=== PATIENT | male | born 1960 | race Two or more races ===

== ENCOUNTER 2021-09-07 12:55 | Inpatient (IN) | payer MEDICAID ==
[~2021-09-07] VITALS: Ht 177.8 cm; Wt 76.2 kg
[2021-09-07] VITALS (22 sets, daily range): BP systolic 68–156; BP diastolic 44–80
--- NOTE | 2021-09-07 13:00 | NUR ---
[facility] C/O HYPOXIA 80'S THIS MORNING, 97% AFTER SUCTION. PT ATTACHED TO MONITOR. RESPIRATORY AT BEDSIDE, PT BREATHING IS LABORED AND BREATHING THROUGH HIS STOMACH. PT HAS A BAUMAN AND GTUBE IN PLACE. PT WARM TO TOUCH, AFEBRILE. WILL CONTINUE TO MONITOR.
--- NOTE | 2021-09-07 13:05 | NUR ---
VENT SETTINGS MODE: A/C VC FIO2: 100% TIDAL VOLUME: 550 RATE: 16 PEEP: 5
--- NOTE | 2021-09-07 13:30 | NUR ---
Cristobal mckinney in [facility] - 09/07/21 at 1441 by ROMÁNO VENT SEETING MODE: A/C VC FIO2: 100% TIDAL VOLUME: 550 RATE: 16 PEEP: 5
--- NOTE | 2021-09-07 13:31 | NUR ---
URINE COLLECTED AND SENT
--- NOTE | 2021-09-07 13:34 | NUR ---
UNABLE TO OBTAIN IV ACCESS, DR SCOTT AWARE, MIDLINE ORDER WAS PLACED.
--- NOTE | 2021-09-07 13:45 | NUR ---
COVID TEST COLLECTED AND SENT
[2021-09-07 14:14] LABS: BASOPHILS % (AUTO) 0.1 % (0.0-2.0); HEMATOCRIT 34 % (39-51); HEMOGLOBIN 10.5 g/dL (13.5-17.5); LYMPHOCYTES # (AUTO) 0.7 K/uL (0.8-4.8); LYMPHOCYTES % (AUTO) 2.7 % (20.0-44.0); MEAN CORPUSCULAR HGB CONC 31 g/dl (31.0-36.0); MEAN CORPUSCULAR VOLUME 89 fL (80-96); MONOCYTES # (AUTO) 0.6 K/uL (0.1-1.30); MONOCYTES % (AUTO) 2.4 % (2.0-12.0); NEUTROPHILS # (AUTO) 23.9 K/uL (1.8-8.9); NEUTROPHILS % (AUTO) 94.8 % (43.0-81.0); PLATELET COUNT (AUTO) 334 K/uL (150-450); RED BLOOD CELL COUNT(AUTO) 3.77 MIL/uL (4.5-6.0); WHITE BLOOD COUNT (AUTO) 25.2 K/uL (4.3-11.0)
[2021-09-07] MEDS ORDERED: MAGN400O6 GT (14:24)
[2021-09-07] MEDS ORDERED: NUTR250L58 GT (14:24)
[2021-09-07] MEDS ORDERED: ACET650S26 GT (14:24)
[2021-09-07] MEDS ORDERED: MULT-447 GT (14:24)
[2021-09-07] MEDS ORDERED: SERT25TA GT (14:24)
[2021-09-07] MEDS ORDERED: ASCO-352 GT (14:24)
[2021-09-07] MEDS ORDERED: IPRA4AER IH ×2 (14:24)
[2021-09-07] MEDS ORDERED: COLL30OI TP (14:24)
[2021-09-07] MEDS ORDERED: MIDO10TA GT (14:24)
[2021-09-07] MEDS ORDERED: ZINC1CAP2 GT (14:24)
[2021-09-07] MEDS ORDERED: NA P133E RC (14:24)
[2021-09-07] MEDS ORDERED: BISA10SU11 RC (14:24)
[2021-09-07] MEDS ORDERED: SACC250C GT (14:24)
[2021-09-07] MEDS ORDERED: QUET25TA GT (14:24)
[2021-09-07] MEDS ORDERED: CHLO473M5 MM (14:24)
[2021-09-07] MEDS ORDERED: ACET-2605 GT ×2 (14:24)
[2021-09-07 14:38] LABS: CALCIUM, SERUM 9.7 mg/dL (8.5-10.1); CARBON DIOXIDE 26 mmol/L (21-32); CHLORIDE 101 mmol/L (98-107); GLUCOSE 144 mg/dL (74-106); POTASSIUM 3.8 mmol/L (3.5-5.1); SODIUM SERUM 137 mmol/L (136-145); UREA NITROGEN, BLOOD 35 mg/dL (7-18)
[2021-09-07 14:52] LABS: ALANINE AMINOTRANSFERASE 18 U/L (12-78); ALBUMIN 2.8 g/dL (3.4-5.0); ALKALINE PHOSPHATASE 113 U/L (46-116); ASPARTATE AMINOTRANSFERASE 14 U/L (15-37); BILIRUBIN,DIRECT 0.2 mg/dL (0.0-0.2); TOTAL PROTEIN, SERUM 7.8 g/dL (6.4-8.2)
[2021-09-07] MEDS ORDERED: IV D5/ 0.9% NACL 1,000 ML IV PRN (15:00)
[2021-09-07] MEDS ORDERED: PIPERACILLIN /TAZOBACTAM 3.375 G in IV D5W 50 ML IV ONE (15:00)
[2021-09-07 15:07] LABS: BILIRUBIN,URINE NEGATIVE (NEGATIVE); COLOR,URINE YELLOW (YELLOW); LEUKOCYTE ESTERASE ,URINE LARGE (NEGATIVE); NITRITE, URINE POSITIVE (NEGATIVE); PROTEIN,URINE >=300 mg/dl (NEGATIVE); UGLUCOSE NEGATIVE (NEGATIVE); UROBILINOGEN,URINE 0.2 EU/dL (0.2)
[2021-09-07 15:09] LABS: PH,URINE >8.5 (5.0-8.0)
--- NOTE | 2021-09-07 15:10 | NUR ---
CONSENT FROM [facility] FOR PICC LINE GIVEN OVER THE PHONE
[2021-09-07 15:12] LABS: ABG BASE EXCESS -0.1 mmol/L; ABG PH 7.384 (7.350-7.450); ABG PO2 277.4 mmHg (75.0-100.0); COHb 0.3 % (0.5-1.5); MetHb 0.4 % (0.0-1.5); O2Hb 98.7 % (94.0-97.0); SITE, ABG Left Radial; VENT MODE, BG AC 16 550 +5 100%
--- NOTE | 2021-09-07 15:17 | NUR ---
UPDATED VENT SETTINGS MODE: A/C VC FIO2: 60% TIDAL VOLUME: 550 RATE: 16 PEEP: 5
[2021-09-07 15:21] LABS: MUCUS,URINE Moderate /LPF (None Seen)
[2021-09-07 15:22] LABS: BACTERIA,URINE 3+ /HPF (None Seen); RBC,URINE 21-50 /HPF (0-2); SQUAMOUS EPITHELIAL CELL,UR 0-2 /HPF (None Seen); WBC,URINE 51-80 /HPF (0-3)
[2021-09-07] MEDS ORDERED: LORAZEPAM INJ 2 MG/ML VIAL IVP PRN (15:30)
--- NOTE | 2021-09-07 15:31 | NUR ---
DR TOVAR AT BEDSIDE FOR PICC LINE INSERTION
[2021-09-07] MEDS ORDERED: Z GUARD REMEDY 4 OZ OINT TP PRN (16:00)
[2021-09-07] MEDS ORDERED: MAGNESIUM HYDROXIDE 30 ML UDC PO PRN (16:00)
[2021-09-07] MEDS ORDERED: ACETAMINOPHEN 325 MG TABLET PO PRN (16:00)
[2021-09-07] MEDS ORDERED: ONDANSETRON HCL/PF 4 MG/2 ML VIAL IVP PRN (16:00)
[2021-09-07] MEDS ORDERED: MAG HYDROX/AL HYDROX/SIMETH 30 ML UDC PO PRN (16:00)
[2021-09-07] MEDS ORDERED: CEFEPIME 2 GM in IV D5W 100 ML IV SCH (16:00)
[2021-09-07] MEDS ORDERED: NOREPINEPHRINE 8 MG in IV NS 0.9% 242 ML IV PRN (16:00)
[2021-09-07] MEDS ORDERED: ZOLPIDEM TARTRATE 5 MG TABLET PO PRN (16:00)
[2021-09-07] MEDS ORDERED: IV NS 0.9% 1,000 ML IV PRN (16:00)
[2021-09-07] MEDS ORDERED: ENOXAPARIN SODIUM 40 MG/0.4 ML DISP.SYRIN SQ ONE (16:00)
[2021-09-07] MEDS ORDERED: NOREPINEPHRINE 8 MG in IV NS 0.9% 250 ML IV ONE (16:30)
--- NOTE | 2021-09-07 16:44 | NUR ---
UNABLE TO GIVE VANCOMYOCIN AND ZOSYN, NO IV ACCESS
[2021-09-07] MEDS: VANCOMYCIN 1 GM in IV D5W 250 ML IV ONE ×2 (17:10→17:50)
--- NOTE | 2021-09-07 17:10 | NUR ---
CENTRAL LINE INSTERED BY DR TOVAR (LEFT INGUINAL).
--- NOTE | 2021-09-07 17:52 | NUR ---
attempted to give report, nurse em transport patient to . asked to call back in 10 minutes
[2021-09-07] MEDS ORDERED: IV NS 0.9% 1,000 ML BAG IV ONE (18:00)
[2021-09-07] MEDS ORDERED: ENOXAPARIN SODIUM 40 MG/0.4 ML DISP.SYRIN SQ SCH (18:00)
--- NOTE | 2021-09-07 18:11 | NUR ---
REPORT GIVEN TO VLADIMIR FOR [facility]
--- NOTE | 2021-09-07 18:28 | NUR ---
PT TRANSFERRED TO ICU WITH ACLS PROTOCOLS IN PLACE ACCOMPANIED BY EMT, RN, AND RT. PT WAS TRANSPORTED AND RECIEVED IN STABLE CONDITION.
--- NOTE | 2021-09-07 18:35 | NUR ---
ICU/RN PT ADMITTED FROM ER TRACH ON THE VENT AC MODE,FIO2-60%,SAT O2-94%.ON LEVOPHED DRIP.SUCTION PROVIDED.PT HAS GREEN SECRETION.G-TUBE CLAMPED.LEFT FEMORAL TLC .F/C DRAINING WITH DARK PAOLA CLOUDY URINE, PT HAS UTI.NEW F/C INSERTED.PT HAS LOOSE STOOL.MULTIPLY WOUNDS NOTED ALL OVER THE BODY, REDNESS ON THE VU AREA NOTED. LEFT CHEST AND LEFT NECK SIDE RUSHES NOTED.SEE PHOTOS.WOUND NURSE NOTIFIED.CONTINUE MONITORING.PT RR-40-50 BPM/HR [address] FRANKS NOTIFIED.OK TO START DIPRIVAN.
--- NOTE | 2021-09-07 19:30 | NUR ---
ICU/TERMINAL GAUGER SUPERVISOR RECIEVED REPORT FROM DAY SHIFT NURSE. PT JUST CAME UP FROM THE ER @1830. WOUND PHOTO DOCUMENTATION WAS DONE. FINISHED THE ADMISSION. FULL CODE ORDER.
[2021-09-07] MEDS: PROPOFOL 100 ML IV PRN (19:45)
[2021-09-07] MEDS: IPRATROPIUM NEB FS 0.5 MG/2.5 ML AMPUL.NEB NEB SCH ×2 (19:48→23:40)
--- NOTE | 2021-09-07 19:50 | NUR ---
ICU/SPORTS CLERK WOUND NURSE CONSULT WAS ORDERED. ALONG WITH [facility] BED.
--- NOTE | 2021-09-07 20:15 | NUR ---
ICU/AIRCRAFT ENGINE MECHANIC SUPERVISOR FAMILY CAME IN TO SEE PT. AT BEDSIDE VERIFIED HOME PHONE NUMBER.
[2021-09-07] MEDS: IV D5/ 0.9% NACL 1,000 ML IV PRN (22:11)
--- NOTE | 2021-09-07 22:30 | NUR ---
ICU/ORAL HEALTH THERAPIST FAMILY HAVE GONE HOME FOR THE EVENING, WILL CALL IF ANY UPDATES ON THIS PT.
--- NOTE | 2021-09-07 23:00 | NUR ---
ICU/KERRICK KLEANER OPERATOR LAB HERE TO DRAW TROPONIN AND LACTIC ACID, WELL A MAG.
[2021-09-07] MEDS: NOREPINEPHRINE 8 MG in IV NS 0.9% 242 ML IV PRN (23:17)
--- NOTE | 2021-09-07 23:20 | NUR ---
ICU/INVESTIGATIVE ANALYST PT APPEARS TO BE IN PAIN. TYLENOL 650MG WAS GIVEN THROUGH THE G/TUBE. FLACC SCALE OF 3/10 WAS SCORED. ALSO AT THIS TIME PT GETS SPECIAL FEEDING THAT WE DON'T HAVE, WILL PASS ON TO DAY SHIFT TO GET THIS VERIFIED WHAT FEEDING PT SHOULD HAVE
[2021-09-07] MEDS: PIPERACILLIN /TAZOBACTAM 3.375 G in IV D5W 50 ML IV SCH (23:34)
--- NOTE | 2021-09-07 23:50 | NUR ---
ICU/ANALYTICAL DATA MINER PT HAS BEEN BREATHING IN THE 40'S TO 50'S, SEDATION OF DIPRIVAN IS PLACED ON PT EARLIER. DIPRIVAN HAS BEEN TITRATED UP FOR INCREASED HEART RATE AND INCREASED RESPIRATORY RATE . WILL CONTINUE TO MONITOR THIS PT.
[2021-09-08] VITALS (97 sets, daily range): BP systolic 79–136; BP diastolic 49–86
--- NOTE | 2021-09-08 00:05 | NUR ---
ICU/DATASTAGE DEVELOPER PT HAS POSITIVE TROP. CALLED IN A CRITICAL LAB VALUE, OF 106 FROM 8 EARLIER. CALLED THE EXTENSION COURSE COORDINATOR MD ABOUT THIS. WHO GAVE A ORDER FOR LOVENOX SQ 75MG. MADE MD AWARE THAT PT HAD GOTTEN LOVENOX SQ 40MG AT @2000, EAASHLIER IN THE SHIFT.
[2021-09-08] MEDS: ENOXAPARIN SODIUM 80 MG/0.8 ML DISP.SYRIN SQ SCH ×2 (00:19→08:38)
--- NOTE | 2021-09-08 03:00 | NUR ---
ICU/MEDICAL SERVICES MANAGER RESPIRATORY SPUTUM CULTURE WAS COLLECTED AND SENT TO LAB.
[2021-09-08] MEDS: IPRATROPIUM NEB FS 0.5 MG/2.5 ML AMPUL.NEB NEB SCH ×6 (03:16→23:39)
[2021-09-08] MEDS: PROPOFOL 100 ML IV PRN ×4 (03:38→21:34)
[2021-09-08 04:13] LABS: BASOPHILS % (AUTO) 0.1 % (0.0-2.0); HEMATOCRIT 25 % (39-51); LYMPHOCYTES # (AUTO) 1.5 K/uL (0.8-4.8); MEAN CORPUSCULAR HGB CONC 32 g/dl (31.0-36.0); MEAN CORPUSCULAR VOLUME 88 fL (80-96); MONOCYTES % (AUTO) 3.3 % (2.0-12.0); NEUTROPHILS # (AUTO) 26.7 K/uL (1.8-8.9); NEUTROPHILS % (AUTO) 91.6 % (43.0-81.0); PLATELET COUNT (AUTO) 312 K/uL (150-450); RED BLOOD CELL COUNT(AUTO) 2.84 MIL/uL (4.5-6.0); WHITE BLOOD COUNT (AUTO) 29.1 K/uL (4.3-11.0)
--- NOTE | 2021-09-08 04:20 | NUR ---
ICU/RUNNING RIGGER AM LABS WERE DRAWN ALONG WITH CHEST XRAY. AWAIT FOR ANY ABNORMAL RESULTS.
[2021-09-08 04:40] LABS: ALBUMIN 2.4 g/dL (3.4-5.0); BILIRUBIN,TOTAL 1.1 mg/dL (0.2-1.0); CALCIUM, SERUM 8.8 mg/dL (8.5-10.1); CREATININE 0.7 mg/dL (0.6-1.3); MAGNESIUM 2.6 mg/dL (1.8-2.4); PHOSPHORUS 3.2 mg/dL (2.5-4.9); TOTAL PROTEIN, SERUM 6.7 g/dL (6.4-8.2)
[2021-09-08 05:01] LABS: POTASSIUM 2.5 mmol/L (3.5-5.1)
[2021-09-08] MEDS: PIPERACILLIN /TAZOBACTAM 3.375 G in IV D5W 50 ML IV SCH ×4 (05:24→23:38)
--- NOTE | 2021-09-08 05:35 | NUR ---
ICU/CRUISE COUNSELOR PT HAS HISTORY OF C-DIFF, PT HAS LOOSE WATERY STOOL. STOOL WAS COLLECTED AND SENT TO LAB. FLEXISEAL WAS PLACED IN PT TO KEEP WOUND CLEAN AND DRY.
[2021-09-08] MEDS ORDERED: VANCOMYCIN 1 GM in IV D5W 250 ML IV SCH (06:00)
--- NOTE | 2021-09-08 06:14 | NUR ---
ICU/ELECTRICAL CONTROLS DESIGNER POTASSIUM 2.5, CALLED MD CANDLE WICKER FOR ORDERS WHICH WERE RECIEVED AT [facility] 40MEQ BID X2DAYS. ORDERS CARRIED OUT.
--- NOTE | 2021-09-08 07:05 | NUR ---
RN NOTES RECEIVED PT ON BED , TRACH/ VENT DEPENDENT , PT IS SEDATED, ON DIPRIVAN AT 30MCG/KG/MIN, ON TELE V PACING , HR IN 70'S , GT CLAMPED AT THIS TIME, BAUMAN DRAINING TO GRAVITY, L FEMORAL PICC LINE SITE , CLEAN ,DRY AND INTACT, PT ON LEVO AT .1 MCG/KG/MIN FOR BP SUPPORT, IVF AT 100 CC/HR RUNNING , SR UP x3, CALL LIGHT WITHIN EASY REACH, BED LOCKED AND IN LOWEST POSITION, CONTINUE TO MONITOR.
--- NOTE | 2021-09-08 07:21 | NUR ---
WOUND CARE CONSULT: PT PRESENTS WITH MULTIPLE WOUNDS AND SKIN ISSUES INCLUDING STAGE 4 ULCERS TO BILATERAL BUTTOCKS AND SACRUM, RASH/SKIN CONDITION TO POSTERIOR/LEFT SIDE OF NECK, DRY WOUNDS TO HEELS AND NECROTIC WOUND TO RT WRIST, ALL PRESENT ON ADMISSION. RECOMMENDATIONS MADE FOR SKIN PROTECTION. DISCUSSED WITH NURSING STAFF. FIRST STEP LOW AIRLOSS MATTRESS IS ON ORDER. DR FRIEDMAN AND DR HURT TO BE NOTIFIED THIS AM OF SURGICAL AND DPM CONSULTS. MD IN AGREEMENT WITH PLAN OF CARE.
[2021-09-08] MEDS: ASCORBIC ACID 500 MG TABLET GT SCH (08:37)
[2021-09-08] MEDS: POTASSIUM CHLORIDE 20 MEQ POWDER PACKET GT SCH ×2 (08:37→16:39)
[2021-09-08] MEDS: IV D5/ 0.9% NACL 1,000 ML IV PRN ×2 (08:58→23:13)
[2021-09-08] MEDS: THERAHONEY GEL 1.5 OZ TUBE TP SCH (09:49)
[2021-09-08] MEDS: DAKINS QUARTER STRENGTH (0.125%) 480 ML BOTTLE TOP SCH (09:49)
--- NOTE | 2021-09-08 12:30 | NUR ---
RN NOTES ORAL AND TRACH SUCTIONING DONE , LARGE AMOUNT OF THICK WHITISH SECRETION NOTED . CONTINUE TO MONITOR.
[2021-09-08] MEDS: NOREPINEPHRINE 8 MG in IV NS 0.9% 242 ML IV PRN (13:40)
--- NOTE | 2021-09-08 16:00 | NUR ---
RN NOTES SUPPORTIVE FAMILY AT THE BEDSIDE, PT ON LEVO FOR BP SUPPORT, CONTINUE TO MONITOR.
[2021-09-08] MEDS: VANCOMYCIN 1.25 GM in IV D5W 250 ML IV SCH (17:34)
--- NOTE | 2021-09-08 18:23 | NUR ---
RN NOTES NO SIGNFICANT CHANGES NOTED ON THIS SHIFT, TRACH SUCTIONING DONE NEEDED, PT HAS LARGE AMOUNT OF THICK WHITISH SECRETION , ON LEVO AT .08 MCG/KG/MIN AT THIS TIME FOR BP SUPPORT , ON DIPRIVAN AT 35 MCG/KG/MIN FOR SEDATION , IVF AT 100 CC/HR RUNNING , BAUMAN AND TOM SEAL DRAINING TO GRAVITY, SR UP x3, CALL LIGHT WITHIN EASY REACH, BED LOCKED AND IN LOWEST POSITION, WILL ENDORSE TO HYDROGEN POWER PLANT ENGINEER NURSE FOR CONTINUITY OF CARE .
--- NOTE | 2021-09-08 19:45 | NUR ---
ICU/MACHINE SLAT BASKET MAKER RECIVED REPORT FROM DAY NURSE. SEE FLOWSHEET FOR ASSESSMENT. THERE ARE MANY SKIN ISSUES WHICH ARE ADDRESSED ON THE FLOWSHEET, ALONG WITH THE INTERVENTIONS TO EACH. PT HAS IV DRIPS WHICH ARE ADDRESSED ON THE IV SPREAD SHEET ALONG WITH THE TITRATIONS TO THEM. PT WAS THEN TURNED AND REPOSITIONED FOR COMFORT AND CARE. NO ACUTE DISTRESS SEEN AT THIS TIME. WILL CONTINUE TO MONITOR THIS PT.
--- NOTE | 2021-09-08 19:57 | NUR ---
ICU/PURIFYING PLANT OPERATOR DR STOCK CAME IN TO SEE PT FOR THE POSITIVE TROP. FROM YESTERDAY, WHEN LAB VALUES WENT FROM 8 TO 106. ALSO ASKED ABOUT THE LLOVENOX INCREASED TO 75SQ FROM 40. SAID TO DECREASE BACK DOWN TO 40. ORDERS RECIEVED AND CARRIED OUT.
--- NOTE | 2021-09-08 20:14 | NUR ---
ICU/LASER OPERATOR PT'S BREATHING APPEARS TO BE BETTER, CHARGE NURSE DECREASED THE SEDATION DOWN. WILL MONITOR THIS PT AND HIS BREATHING.
--- NOTE | 2021-09-08 22:30 | NUR ---
ICU/KNITTING MACHINE TENDER PT WAS TURNED AND REPOSITIONED FOR COMFORT AND CARE.PT WAS ALSO PROVIDED ORAL CARE AT THIS TIME. PT REMAINS ON CURRENT VENT SETTINGS, WITH SATURATION AT 100%. WILL CONTINUE TO MONITOR THIS PT AND HIS SATURATION.
[2021-09-09] VITALS (89 sets, daily range): BP systolic 82–140; BP diastolic 46–87
--- NOTE | 2021-09-09 00:50 | NUR ---
ICU/BOARDING HOUSE COOK PT WAS TURNED AND REPOSITIONED FOR COMFORT AND CARE, AFTER PM CARE. PT WAS ALSO PROVIDED ORAL CARE AT THIS TIME. PT REMAINS ON CURRENT VENT SETTINGS, WITH SATURATION AT 100%. WILL CONTINUE TO MONITOR THIS PT AND HIS SATURATION.
--- NOTE | 2021-09-09 01:30 | NUR ---
ICU/CORPORATE OPERATIONS COMPLIANCE MANAGER PT'S BREATHING INCREASED, APPEARED LABORED, SEDATION WAS INCREASED TO REFLECT THIS. WILL CONTINUE TO MONITOR THIS PT AND HIS BREATHING
[2021-09-09] MEDS: PROPOFOL 100 ML IV PRN ×2 (02:42→09:01)
--- NOTE | 2021-09-09 03:00 | NUR ---
ICU/SPOOL SALVAGER PT WAS TURNED AND REPOSITIONED FOR COMFORT AND CARE.PT WAS ALSO PROVIDED ORAL CARE AT THIS TIME, AFTER AM CARE WAS GIVEN. PT REMAINS ON CURRENT VENT SETTINGS, WITH SATURATION AT 100%. WILL CONTINUE TO MONITOR THIS PT AND HIS SATURATION.
[2021-09-09] MEDS: IPRATROPIUM NEB FS 0.5 MG/2.5 ML AMPUL.NEB NEB SCH ×6 (03:10→23:23)
--- NOTE | 2021-09-09 04:30 | NUR ---
ICU/FARMWORKER DAIRY AM LABS WERE DRAWN ALONG WITH CHEST XRAY. AWAIT FOR ANY ABNORMAL RESULTS
[2021-09-09] MEDS: PIPERACILLIN /TAZOBACTAM 3.375 G in IV D5W 50 ML IV SCH ×3 (05:36→18:21)
[2021-09-09] MEDS: VANCOMYCIN 1.25 GM in IV D5W 250 ML IV SCH (06:00)
--- NOTE | 2021-09-09 06:42 | NUR ---
ICU/FERMENTATION OPERATOR CALLED LAB ABOUT VANCO LEVEL, SAID THE EQUIPMENT TO GIVE RESULTS WERE DOWN.
--- NOTE | 2021-09-09 06:46 | NUR ---
ICU/COOKER SODA VANCO LEVEL JUST RESULTED, WAS 23. ORDER IS TO HOLD FOR THIS.
[2021-09-09] MEDS: NOREPINEPHRINE 8 MG in IV NS 0.9% 242 ML IV PRN (06:59)
--- NOTE | 2021-09-09 07:15 | NUR ---
RN NOTES RECEIVED PT IN BED. ON TRACH, PORTEX #7. TOLERATING VENT SETTINGS WELL. SEDATED ON DIPRIVAN @35MCG/KG/MIN. TELE MONITOR READING V PACING. GT CLAMPED AT THIS TIME. BAUMAN CATH IN PLACE DRAINING YELLOW COLORED URINE. L FEMORAL TLC INTACT AMD PATENT. ON LEVO @0.1 MCG/KG/MIN. D5NS @100 ML/HR. INFUSING WELL. SAFETY MEASURES IMPLEMENTED. BED LOCKED AND IN LOWEST POSITION WITH SIDE RAILS UP X3. WILL CONTINUE TO MONITOR.
[2021-09-09 08:16] LABS: CALCIUM, SERUM 8.9 mg/dL (8.5-10.1); CREATININE 0.4 mg/dL (0.6-1.3)
[2021-09-09] MEDS: ASCORBIC ACID 500 MG TABLET GT SCH ×2 (09:00→09:01)
[2021-09-09] MEDS: POTASSIUM CHLORIDE 20 MEQ POWDER PACKET GT SCH ×3 (09:00→18:30)
[2021-09-09] MEDS ORDERED: ENOXAPARIN SODIUM 80 MG/0.8 ML DISP.SYRIN SQ SCH (09:00)
--- NOTE | 2021-09-09 09:00 | NUR ---
RN NOTES GTUBE WILL BE RE ASSESSED BY . GT MEDS NOT ADMINISTERED.
[2021-09-09] MEDS: DAKINS QUARTER STRENGTH (0.125%) 480 ML BOTTLE TOP SCH (09:09)
[2021-09-09] MEDS: THERAHONEY GEL 1.5 OZ TUBE TP SCH (09:10)
[2021-09-09] MEDS: ENOXAPARIN SODIUM 40 MG/0.4 ML DISP.SYRIN SQ SCH (09:53)
[2021-09-09 10:11] LABS: BASOPHILS # (AUTO) 0.1 K/uL (0.0-0.2); BASOPHILS % (AUTO) 0.3 % (0.0-2.0); EOSINOPHILS % (AUTO) 0.5 % (0.0-6.0); HEMATOCRIT 24 % (39-51); HEMOGLOBIN 7.6 g/dL (13.5-17.5); LYMPHOCYTES # (AUTO) 0.9 K/uL (0.8-4.8); LYMPHOCYTES % (AUTO) 5.8 % (20.0-44.0); MEAN CORPUSCULAR HGB CONC 31 g/dl (31.0-36.0); MEAN CORPUSCULAR VOLUME 90 fL (80-96); MONOCYTES # (AUTO) 0.6 K/uL (0.1-1.30); MONOCYTES % (AUTO) 3.8 % (2.0-12.0); NEUTROPHILS # (AUTO) 14.2 K/uL (1.8-8.9); NEUTROPHILS % (AUTO) 89.6 % (43.0-81.0); PLATELET COUNT (AUTO) 221 K/uL (150-450); RED BLOOD CELL COUNT(AUTO) 2.71 MIL/uL (4.5-6.0); WHITE BLOOD COUNT (AUTO) 15.8 K/uL (4.3-11.0)
[2021-09-09] MEDS: IV D5/ 0.9% NACL 1,000 ML IV PRN ×2 (10:51→21:08)
[2021-09-09] MEDS: VANCOMYCIN HCL 0.75 GM in IV D5W 250 ML IV SCH (12:50)
--- NOTE | 2021-09-09 19:21 | NUR ---
RN NOTES NO SIGNIFICANT CHANGES THROUGHOUT THE SHIFT. NO SOB OR ANY S/S OF DISTRESS. ALL DUE MEDS GIVEN. NEEDS ATTENDED. KEPT CLEAN AND COMFORTABLE. SAFETY MEASURES IN PLACE. ENDORSED TO NIGHT RN FOR E[facility].
--- NOTE | 2021-09-09 20:15 | NUR ---
ICU/HUNTING AND FISHING GUIDE STABLE BLOOD PRESSURE, MADE CHARGE NURSE AWARE OF THIS, 115/74 WITH HEART RATE 76. LEVO WAS THEN DECREASED DOWN TO 0.04 FROM 0.06. WILL CONTINUE TO MONITOR THIS PT AND HIS BLOOD PRESSURE.
--- NOTE | 2021-09-09 22:15 | NUR ---
ICU/EMERGENCY ROOM CLERK STABLE BLOOD PRESSURE, MADE CHARGE NURSE AWARE OF THIS, 117/69 WITH HEART RATE 73. LEVO WAS THEN DECREASED DOWN TO 0.02 FROM 0.06. WILL CONTINUE TO MONITOR THIS PT AND HIS BLOOD PRESSURE.
--- NOTE | 2021-09-09 23:30 | NUR ---
ICU/VENDING MACHINE SERVICER PT'S SATURATION HAS BEEN STABLE THROUGH EALIER PART OF THE SHIFT, RT THEN DECREASED THE FIO2 DOWN TO 80% FROM 100% WHICH WAS DONE EARLIER IN THE PREVIOUS SHIFT. WILL CONTINUE TO MONITOR THIS PT AND HIS SATURATION.
[2021-09-10] VITALS (97 sets, daily range): BP systolic 73–128; BP diastolic 16–79
[2021-09-10] MEDS: PIPERACILLIN /TAZOBACTAM 3.375 G in IV D5W 50 ML IV SCH ×5 (00:03→23:17)
[2021-09-10] MEDS: VANCOMYCIN HCL 0.75 GM in IV D5W 250 ML IV SCH ×2 (00:28→13:34)
[2021-09-10] MEDS: IPRATROPIUM NEB FS 0.5 MG/2.5 ML AMPUL.NEB NEB SCH ×5 (03:11→23:10)
--- NOTE | 2021-09-10 03:30 | NUR ---
ICU/CARTON GLUING MACHINE OPERATOR UNSTABLE BLOOD PRESSURE, MADE CHARGE NURSE AWARE OF THIS, 79/45 WITH HEART RATE 90. LEVO WAS THEN INCREASED UP TO 0.04 FROM 0.02. WILL CONTINUE TO MONITOR THIS PT AND HIS BLOOD PRESSURE.
--- NOTE | 2021-09-10 04:53 | NUR ---
ICU/LOGISTICS CLERK PT'S SATURATION HAS BEEN STABLE THROUGH THE SHIFT, RT THEN DECREASED THE FIO2 DOWN TO 70% FROM 80%. WILL CONTINUE TO MONITOR THIS PT AND HIS SATURATION.
[2021-09-10 05:20] LABS: CALCIUM, SERUM 8.2 mg/dL (8.5-10.1); CREATININE 0.4 mg/dL (0.6-1.3)
[2021-09-10] MEDS: IV D5/ 0.9% NACL 1,000 ML IV PRN ×2 (05:41→17:43)
[2021-09-10] MEDS: NOREPINEPHRINE 8 MG in IV NS 0.9% 242 ML IV PRN (05:42)
[2021-09-10 05:52] LABS: POTASSIUM 2.8 mmol/L (3.5-5.1)
--- NOTE | 2021-09-10 07:45 | NUR ---
ICU/RN PT IS CHRONIC TRACH ON THE VENT AC MODE,FIO2-70%.SAT O2-100%.OFF SEDATION.AWAKE ,ALERT.ON LEVOPHED DRIP. LEFT FEMORAL TLC.F/C DRAINING WITH YELLOW URINE.RECTAL TUBE DRAINING WITH LIQUID STOOL. MULTIPLY WOUND NOTED ALL OVER THE BODY.G-TUBE CLAMPED.LABS REVIEW.K-2.8. NOTIFIED.SUCTION PROVIDED.PT HAS A LOT OF GREEN SECRETION.PT IS QUADRIPLEGIC.REPOSITION FOR COMFORT.[facility] ORDERED.
[2021-09-10] MEDS: ASCORBIC ACID 500 MG TABLET GT SCH (08:19)
[2021-09-10] MEDS: DAKINS QUARTER STRENGTH (0.125%) 480 ML BOTTLE TOP SCH (08:20)
[2021-09-10] MEDS: ENOXAPARIN SODIUM 40 MG/0.4 ML DISP.SYRIN SQ SCH (08:20)
[2021-09-10] MEDS: THERAHONEY GEL 1.5 OZ TUBE TP SCH (08:21)
--- NOTE | 2021-09-10 09:10 | NUR ---
ICU/RN DUE MEDS ARE GIVEN ORDERED.DR FRANKS SEEN THE PT .50 Addendum: 09/10/21 at 0942 by VLADIMIR JORGE RN K-2.8. 50 MEQ KCL IV ORDERED .
[2021-09-10] MEDS: POTASSIUM CL. PREMIX PERIPHER. 50 ML IV SCH ×4 (09:27→13:30)
[2021-09-10] MEDS: VITAL AF 1.2 1,000 ML BOTTLE GT PRN (11:28)
[2021-09-10] MEDS: PROSOURCE / PROSTAT (PYXIS) 30 ML UDC GT SCH (17:43)
--- NOTE | 2021-09-10 17:45 | NUR ---
ICU/RN PM CARE PROVIDED.WOUND DRESSING DONE ORDERED.PT PLACED ON [facility] MATRASS . G-TUBE FEEDING INFUSING AT 40 ML/HR NO RESIDUAL NOTED .PT IS ON LEVOPHED DRIP.AFEBRILE. SUCTION PROVIDED.REPOSITION FOR COMFORT.
[2021-09-11] VITALS (101 sets, daily range): BP systolic 74–164; BP diastolic 40–87
[2021-09-11] MEDS: VANCOMYCIN HCL 0.75 GM in IV D5W 250 ML IV SCH ×3 (00:11→23:27)
[2021-09-11] MEDS: IPRATROPIUM NEB FS 0.5 MG/2.5 ML AMPUL.NEB NEB SCH ×6 (03:15→23:31)
--- NOTE | 2021-09-11 04:00 | NUR ---
ICU/RN: DURING AM LINEN CHANGE FLEX-SEAL NOTED TO BE DEFLATED AND LAYING ON THE LINENS. AM CARE RENDERED. LINENS CHANGED, WOUNDS REDRESSED AND NEW FLEXI-SEAL PLACED BY PHOTOGRAPHIC PROCESS SCREEN MAKERMARIPOSA CERVANTES. PT TOLERATED PROCEDURE WELL. WILL CONTINUE TO MONITOR.
[2021-09-11] MEDS: IV D5/ 0.9% NACL 1,000 ML IV PRN ×2 (04:34→17:33)
[2021-09-11 05:19] LABS: CALCIUM, SERUM 8.3 mg/dL (8.5-10.1); CREATININE 0.3 mg/dL (0.6-1.3)
[2021-09-11] MEDS: PIPERACILLIN /TAZOBACTAM 3.375 G in IV D5W 50 ML IV SCH ×2 (05:26→11:00)
[2021-09-11] MEDS: NOREPINEPHRINE 8 MG in IV NS 0.9% 242 ML IV PRN ×2 (05:27→20:04)
[2021-09-11 05:33] LABS: POTASSIUM 2.7 mmol/L (3.5-5.1)
--- NOTE | 2021-09-11 05:36 | NUR ---
ICU/RN: PAGED SHAWN MARQUEZ DNP TO REPORT CRITICAL POTASSIUM 2.7 AWAITING CALL BACK.
--- NOTE | 2021-09-11 07:40 | NUR ---
ICU/RN PT IS CHRONIC TRACH ON THE VENT AC MODE,FIO2-45%.SAT O2-100%.OFF SEDATION.AWAKE ,ALERT.ON LEVOPHED DRIP. LEFT FEMORAL TLC.F/C DRAINING WITH YELLOW URINE.RECTAL TUBE DRAINING WITH LIQUID STOOL. MULTIPLY WOUND NOTED ALL OVER THE BODY.G-TUBE FEEDING .LABS REVIEW.K-2.7. NOTIFIED.SUCTION PROVIDED.PT HAS A LOT OF GREEN SECRETION.PT IS QUADRIPLEGIC.REPOSITION FOR COMFORT. ON [facility] .
[2021-09-11] MEDS: ASCORBIC ACID 500 MG TABLET GT SCH (08:22)
[2021-09-11] MEDS: ENOXAPARIN SODIUM 40 MG/0.4 ML DISP.SYRIN SQ SCH (08:22)
[2021-09-11] MEDS: PROSOURCE / PROSTAT (PYXIS) 30 ML UDC GT SCH ×2 (08:22→17:34)
[2021-09-11] MEDS: DAKINS QUARTER STRENGTH (0.125%) 480 ML BOTTLE TOP SCH (08:23)
[2021-09-11] MEDS: THERAHONEY GEL 1.5 OZ TUBE TP SCH (08:23)
[2021-09-11] MEDS: POTASSIUM CL. PREMIX PERIPHER. 50 ML IV SCH ×6 (08:54→14:07)
--- NOTE | 2021-09-11 09:00 | NUR ---
ICU/RN K-2.7. 60 MEQ KCL IV ORDERED. DUE MEDS ARE GIVEN ORDERED.
[2021-09-11] MEDS: VITAL AF 1.2 1,000 ML BOTTLE GT PRN (11:09)
[2021-09-11 11:49] LABS: THYROID STIMULATING HORMONE 1.285 uIU/mL (0.358-3.74)
[2021-09-11] MEDS: MEROPENEM 1 G in IV NS 0.9% 100 ML IV SCH ×2 (13:39→21:00)
[2021-09-11 16:07] LABS: BASOPHILS % (AUTO) 0.4 % (0.0-2.0); HEMATOCRIT 24 % (39-51); HEMOGLOBIN 7.6 g/dL (13.5-17.5); LYMPHOCYTES % (AUTO) 12.4 % (20.0-44.0); MEAN CORPUSCULAR HGB CONC 32 g/dl (31.0-36.0); MEAN CORPUSCULAR VOLUME 88 fL (80-96); MONOCYTES # (AUTO) 0.5 K/uL (0.1-1.30); MONOCYTES % (AUTO) 6.3 % (2.0-12.0); NEUTROPHILS # (AUTO) 6.2 K/uL (1.8-8.9); NEUTROPHILS % (AUTO) 76.9 % (43.0-81.0); PLATELET COUNT (AUTO) 202 K/uL (150-450)
[2021-09-11 16:31] LABS: CALCIUM, SERUM 8.3 mg/dL (8.5-10.1); CREATININE 0.5 mg/dL (0.6-1.3); POTASSIUM 3.1 mmol/L (3.5-5.1)
--- NOTE | 2021-09-11 17:30 | NUR ---
ICU/RN PM CARE PROVIDED.WOUND DRESSING DONE ORDERED.PT IS STILL ON LEVOPHED DRIP. 60 MEQ POTASSIUM IV GIVEN ORDERED.NEW POTASSIUM LEVEL 3.1.MD NOTIFIED.NEW ORDERS RECEIVED.
[2021-09-11 18:07] LABS: BAND % (MANUAL) 1 % (0.0-5.0); EOSINOPHILS % (MANUAL) 5 % (0-4); LYMPHOCYTES % (MANUAL) 10 % (16-48); MONOCYTES % (MANUAL) 7 % (0-11.0); NEUTROPHILS % (MANUAL) 77 (42-76)
[2021-09-11] MEDS ORDERED: POTASSIUM CHLORIDE 20 MEQ POWDER PACKET GT SCH ×2 (18:30→21:00)
[2021-09-11] MEDS ORDERED: POTASSIUM CHLORIDE 20 MEQ POWDER PACKET GT ONE (18:30)
--- NOTE | 2021-09-11 20:00 | NUR ---
ICU NOTES Received patient awake non verbal in no acute distress.With trach to vent on same settings well tolerated.SR with Levophed low dose for BP support.GT feeding in progress. No residual noted.Maintained HOB elevated to prevent aspiration.FC to gravity.Flexi seal to gravity with liquid stool.Turned and repositioned.Continue monitoring.
[2021-09-12] VITALS (96 sets, daily range): BP systolic 60–146; BP diastolic 34–105
[2021-09-12] MEDS: IPRATROPIUM NEB FS 0.5 MG/2.5 ML AMPUL.NEB NEB SCH ×6 (03:16→23:31)
[2021-09-12] MEDS: IV D5/ 0.9% NACL 1,000 ML IV PRN ×2 (04:05→14:09)
[2021-09-12] MEDS: MEROPENEM 1 G in IV NS 0.9% 100 ML IV SCH ×3 (04:35→21:03)
--- NOTE | 2021-09-12 06:34 | NUR ---
ICU NOTES Patient resting in no acute distress.VS remains stable.Tolerating vent settings.V-paced. Continue Levophed gtt at low dose.Tolerating gt feeding.Moderate urine output.Wound care done.Bed bath rendered.Oral care done.Turned and repositioned Q 2hrs.No significant changes noted during the shift.Kept comfortable.
[2021-09-12 07:18] LABS: CREATININE 0.3 mg/dL (0.6-1.3); POTASSIUM 4.1 mmol/L (3.5-5.1)
--- NOTE | 2021-09-12 07:30 | NUR ---
OPENING NOTE: REPORT RECEIVED FROM BILLY MONGE. PER REPORT CHRONIC TRACH/VENT PATIENT. LEVOPHED INFUSING PER MD ORDERS. BAUMAN CATHETER AND RECTAL TUBE IN PLACE DRAINING WITHOUT DIFFICULTY. PT CHECKED ON HOURLY AND PRN BY NURSING STAFF.
[2021-09-12] MEDS: VITAL AF 1.2 1,000 ML BOTTLE GT PRN ×2 (08:22→13:13)
[2021-09-12] MEDS: POTASSIUM CHLORIDE 20 MEQ POWDER PACKET GT SCH (09:52)
[2021-09-12] MEDS: ACETAMINOPHEN 650 MG/20.3 ML UDC GT PRN (09:53)
[2021-09-12] MEDS: PROSOURCE / PROSTAT (PYXIS) 30 ML UDC GT SCH ×2 (09:54→17:53)
[2021-09-12] MEDS: ENOXAPARIN SODIUM 40 MG/0.4 ML DISP.SYRIN SQ SCH (09:54)
[2021-09-12] MEDS: ASCORBIC ACID 500 MG TABLET GT SCH (09:57)
[2021-09-12] MEDS: THERAHONEY GEL 1.5 OZ TUBE TP SCH (10:09)
[2021-09-12] MEDS: DAKINS QUARTER STRENGTH (0.125%) 480 ML BOTTLE TOP SCH (10:11)
[2021-09-12 10:18] LABS: CALCIUM, SERUM 9.1 mg/dL (8.5-10.1)
[2021-09-12] MEDS: VANCOMYCIN HCL 0.75 GM in IV D5W 250 ML IV SCH (12:32)
[2021-09-12] MEDS: MIDODRINE HCL (5MG) 5 MG TABLET GT SCH ×2 (12:33→19:40)
[2021-09-12] MEDS: IV NS 0.9% 250 ML IV PRN (14:18)
[2021-09-12] MEDS: SERTRALINE HCL 25 MG TABLET GT SCH (17:54)
[2021-09-12] MEDS: QUETIAPINE FUMARATE 25 MG TABLET GT SCH (17:54)
--- NOTE | 2021-09-12 18:39 | NUR ---
END OF SHIFT NOTE: PT HAD AN UNEVENTFUL SHIFT. LEVOPHED GTT TITRATED DOWN TO 0.01 MCG/KG/MIN. DRESSING CHANGES DONE PER MD ORDERS. PT ALERT, RESPONSIVE APPROPRIATE.. FAMIILY VISITED TODAY WITHOUT DIFFICULTY. PT CHECKED ON HOURLY AND PRN BY NURSING STAFF.
--- NOTE | 2021-09-12 19:20 | NUR ---
RN NOTES RECEIVED REPORT FROM MORNING RN. PATIENT ON TRACH PORTEX #7 CONNECTED TO MV AC 16 TV 550 FIO2 35 SATING 94%. WITH IV ACCESS AT L FEMORAL TRIPLE LUMEN PATENT FLUSHING WELL RUNNING D5 NS@100 ML/HR, LEVOPHED ON 0.2 MCG/KG/MIN. WITH GT PATENT CONNECTED TO CONTINUOS TUBE FEEDING @ 60CC/HR TOLERATING WELL. WITH BAUMAN CATHETER CONNECTED TO URINE BAG DRAINING WELL WITH YELLOWISH URINE. WITH FLEXI SEAL IN PLACE. HOB ELEVATED. SAFETY MEASURES IN PLACE AT ALL TIMES. ALL LIGHT WITHIN REACH. WILL CLOSELY MONITOR THE PATIENT
--- NOTE | 2021-09-12 19:30 | NUR ---
RN NOTES PATIENT NOTED SATURATION 86% SUCTIONED PATIENT. RT CAME IN INCREASED FIO2 50%.
[2021-09-13] VITALS (95 sets, daily range): BP systolic 74–147; BP diastolic 46–91
[2021-09-13] MEDS: VANCOMYCIN HCL 0.75 GM in IV D5W 250 ML IV SCH (00:07)
[2021-09-13] MEDS: IV D5/ 0.9% NACL 1,000 ML IV PRN ×3 (01:05→20:44)
[2021-09-13] MEDS: IPRATROPIUM NEB FS 0.5 MG/2.5 ML AMPUL.NEB NEB SCH ×6 (03:50→23:23)
[2021-09-13] MEDS: MIDODRINE HCL (5MG) 5 MG TABLET GT SCH ×3 (04:25→20:41)
[2021-09-13 04:29] LABS: BASOPHILS % (AUTO) 0.4 % (0.0-2.0); EOSINOPHILS % (AUTO) 4.1 % (0.0-6.0); HEMATOCRIT 21 % (39-51); LYMPHOCYTES # (AUTO) 1.6 K/uL (0.8-4.8); LYMPHOCYTES % (AUTO) 23.8 % (20.0-44.0); MEAN CORPUSCULAR HGB CONC 33 g/dl (31.0-36.0); MEAN CORPUSCULAR VOLUME 87 fL (80-96); MONOCYTES # (AUTO) 0.6 K/uL (0.1-1.30); MONOCYTES % (AUTO) 8.8 % (2.0-12.0); NEUTROPHILS # (AUTO) 4.1 K/uL (1.8-8.9); NEUTROPHILS % (AUTO) 62.9 % (43.0-81.0); PLATELET COUNT (AUTO) 200 K/uL (150-450); RED BLOOD CELL COUNT(AUTO) 2.43 MIL/uL (4.5-6.0); WHITE BLOOD COUNT (AUTO) 6.6 K/uL (4.3-11.0)
[2021-09-13 04:50] LABS: HEMOGLOBIN 6.9 g/dL (13.5-17.5)
[2021-09-13] MEDS: MEROPENEM 1 G in IV NS 0.9% 100 ML IV SCH ×3 (04:50→20:40)
--- NOTE | 2021-09-13 06:57 | NUR ---
RN NOTES PATIENT ASLEEP. ON TRACH CONNECTED TO MV WITH PRESCRIBED SETTING. GT INTACT ON CONTINUOS FEEDING. BAUMAN PATENT DRAINING WELL. STILL ON LEVOPHED TITRATED TO MAINTAIN BLOOD PRESSURE WNL. ALL DUE MEDS GIVEN ORDERED. SUCTIONED SECRETION Q2 AND PRN. KEPT CLEAN AND DRY AT ALL TIMES. ALL SAFETY MEASURES IN PLACE . HOB ELEVATED. CALL LIGHT WITHIN REACH. WILL ENDORSED TO MORNING SHIFT FOR E[facility]ON
[2021-09-13 07:28] LABS: CALCIUM, SERUM 8.5 mg/dL (8.5-10.1); CREATININE 0.4 mg/dL (0.6-1.3); MAGNESIUM 1.7 mg/dL (1.8-2.4); PHOSPHORUS 2.7 mg/dL (2.5-4.9); POTASSIUM 3.6 mmol/L (3.5-5.1)
--- NOTE | 2021-09-13 07:35 | NUR ---
START OF SHIFT NOTES: REPORT RECEIVED FROM LINDSEY; PATIENT ASLEEP COMFORTABLY, NO SSx OF DISTRESS NOTED AT THIS TIME; GT FEEDING RUNNING ORDERED; IVF AND LEVOPHED DRIP INFUSING PER MD ORDERS; F/C AND RECTAL TUBE DRAINING WELL AND INTACT. CALL LIGHT WITHIN REACH, WILL CONTINUE TO MONITOR PATIENT.
[2021-09-13 08:30] LABS: CALCIUM, SERUM 8.4 mg/dL (8.5-10.1); CREATININE 0.4 mg/dL (0.6-1.3); POTASSIUM 3.4 mmol/L (3.5-5.1)
[2021-09-13 08:40] LABS: BASOPHILS % (AUTO) 0.4 % (0.0-2.0); EOSINOPHILS % (AUTO) 6.9 % (0.0-6.0); HEMATOCRIT 22 % (39-51); HEMOGLOBIN 7.1 g/dL (13.5-17.5); LYMPHOCYTES # (AUTO) 1.7 K/uL (0.8-4.8); LYMPHOCYTES % (AUTO) 25.2 % (20.0-44.0); MEAN CORPUSCULAR HGB CONC 33 g/dl (31.0-36.0); MEAN CORPUSCULAR VOLUME 87 fL (80-96); MONOCYTES # (AUTO) 0.7 K/uL (0.1-1.30); MONOCYTES % (AUTO) 10.3 % (2.0-12.0); NEUTROPHILS # (AUTO) 3.9 K/uL (1.8-8.9); NEUTROPHILS % (AUTO) 57.2 % (43.0-81.0); PLATELET COUNT (AUTO) 207 K/uL (150-450); RED BLOOD CELL COUNT(AUTO) 2.49 MIL/uL (4.5-6.0); WHITE BLOOD COUNT (AUTO) 6.7 K/uL (4.3-11.0)
--- NOTE | 2021-09-13 09:15 | NUR ---
MD POLO VISITED PATIENT AND WITH NEW ORDERS NOTED; MADE AWARE OF THE HGB LEVEL OF 6.9 AND 7.1 RESULTED TODAY., NEW ORDER FOR BLOOD TRANSFUSION.
[2021-09-13] MEDS: PROSOURCE / PROSTAT (PYXIS) 30 ML UDC GT SCH ×2 (09:31→17:54)
[2021-09-13] MEDS: POTASSIUM CHLORIDE 20 MEQ POWDER PACKET GT SCH (09:31)
[2021-09-13] MEDS: SERTRALINE HCL 25 MG TABLET GT SCH (09:31)
[2021-09-13] MEDS: ASCORBIC ACID 500 MG TABLET GT SCH (09:31)
[2021-09-13] MEDS: QUETIAPINE FUMARATE 25 MG TABLET GT SCH ×2 (09:31→17:54)
[2021-09-13] MEDS: THERAHONEY GEL 1.5 OZ TUBE TP SCH (09:36)
[2021-09-13] MEDS: DAKINS QUARTER STRENGTH (0.125%) 480 ML BOTTLE TOP SCH (09:36)
[2021-09-13] MEDS: ENOXAPARIN SODIUM 40 MG/0.4 ML DISP.SYRIN SQ SCH (09:41)
[2021-09-13] MEDS: VITAL AF 1.2 1,000 ML BOTTLE GT PRN (10:51)
[2021-09-13] MEDS: IV NS 0.9% 250 ML IV PRN (10:53)
[2021-09-13] MEDS ORDERED: POTASSIUM CHLORIDE 20 MEQ POWDER PACKET NG SCH (11:00)
[2021-09-13] MEDS ORDERED: MAGNESIUM OXIDE 400 MG TABLET PO ONE (11:30)
[2021-09-13] MEDS: VANCOMYCIN 1 GM in IV D5W 250 ML IV SCH (11:37)
[2021-09-13] MEDS ORDERED: HYDROCORTISONE 20 MG TABLET GT SCH (17:00)
[2021-09-13] MEDS: FLUDROCORTISONE 0.1 MG TABLET GT SCH (17:55)
[2021-09-13] MEDS: HYDROCORTISONE 5 MG TABLET GT SCH (17:56)
[2021-09-13] MEDS: NOREPINEPHRINE 8 MG in IV NS 0.9% 242 ML IV PRN (18:07)
--- NOTE | 2021-09-13 19:06 | NUR ---
END OF SHIFT NOTES: REPORT GIVEN TO INCOMING RN, PT. RESTING ON BED IN COMFORTABLE POSITION, NO SIGNIFICANT CHANGES NOTED AT THIS TIME; ALL DUE MEDS GIVEN PER MD ORDERS; HOURLY AND PRN ROUNDING DONE BY STAFF; CALL LIGHT WITHIN REACH. ENDORSED FOR CONTINUITY OF CARE.
--- NOTE | 2021-09-13 20:08 | NUR ---
PIPELINE CONTROLLER. INITIAL ASSESSMENT. RECEIVED THE PT REST IN BED. TRACH TO VENT CONNECTED. REMAINING SAME VENT SETTINGS TOLERATED WELL. SAT 98%, NO ACUTE DISTRESS NOTED. MANAGER E LEARNING SHOWING NSR, ,SOME TIMES V PACING.GT INTACT. VITALS 60 ML/H, IV RT FEM TLC. IVF D5NS 100ML/H,JOSÉ LUIS 0.06 HOB ELEVATED. WILL CONTINUE TO MONITOR VITALS.
[2021-09-14] VITALS (96 sets, daily range): BP systolic 55–160; BP diastolic 28–103
[2021-09-14] MEDS: VANCOMYCIN 1 GM in IV D5W 250 ML IV SCH ×2 (02:09→12:12)
[2021-09-14] MEDS: IPRATROPIUM NEB FS 0.5 MG/2.5 ML AMPUL.NEB NEB SCH ×6 (03:45→23:23)
[2021-09-14 04:59] LABS: BASOPHILS % (AUTO) 0.4 % (0.0-2.0); EOSINOPHILS % (AUTO) 6.3 % (0.0-6.0); HEMATOCRIT 25 % (39-51); HEMOGLOBIN 8.1 g/dL (13.5-17.5); MEAN CORPUSCULAR HGB CONC 33 g/dl (31.0-36.0); MEAN CORPUSCULAR VOLUME 85 fL (80-96); MONOCYTES # (AUTO) 0.8 K/uL (0.1-1.30); MONOCYTES % (AUTO) 9.6 % (2.0-12.0); NEUTROPHILS # (AUTO) 4.7 K/uL (1.8-8.9); NEUTROPHILS % (AUTO) 58.7 % (43.0-81.0); PLATELET COUNT (AUTO) 259 K/uL (150-450); RED BLOOD CELL COUNT(AUTO) 2.89 MIL/uL (4.5-6.0)
[2021-09-14] MEDS: MIDODRINE HCL (5MG) 5 MG TABLET GT SCH ×3 (05:20→20:25)
[2021-09-14] MEDS: MEROPENEM 1 G in IV NS 0.9% 100 ML IV SCH ×3 (05:21→21:09)
[2021-09-14 05:46] LABS: CALCIUM, SERUM 8.8 mg/dL (8.5-10.1); CREATININE 0.4 mg/dL (0.6-1.3); MAGNESIUM 1.9 mg/dL (1.8-2.4); PHOSPHORUS 2.1 mg/dL (2.5-4.9); POTASSIUM 3.7 mmol/L (3.5-5.1)
--- NOTE | 2021-09-14 07:08 | NUR ---
precision agriculture specialist. am care given. remaining same vent settings tolerated well. sat 99%.o acute distress noted, residential monitor showing nsr. iv lt fem tlc. ivf d5ns 100ml/h, levophed 0.03mcg/kg/min.remaining same gt feed tolerated well. fc patent. will continue to monitor vitals
--- NOTE | 2021-09-14 07:30 | NUR ---
TYPEWRITER MECHANIC OPENING NOTES PT IN BED, OPENS EYES TO NAME AND TOUCH, WITH TRACH PORTEX #7 TO MV AC 16 TV 550 FIO2 40 SATING 98%. NO DISTRESS, RESPIRATION UNLABORED, SR,V PACING HR 89 ON MONITOR, WITH IV ACCESS AT L FEMORAL TRIPLE LUMEN PATENT, WITH RUNNING D5 NS@100 ML/HR, LEVOPHED ON 0.2 MCG/KG/MIN. SITE CLEAR. WITH GT PATENT CONNECTED TO CONTINUOUS TUBE FEEDING VITAL AF 1.2 @ 60CC/HR TOLERATING WELL. PLACEMENT CHECKED. 0 RESIDUAL. WITH BAUMAN CATHETER CONNECTED TO URINE BAG DRAINING TO GRAVITY WITH YELLOWISH URINE. WITH FLEXI SEAL IN PLACE. SEE NURSING FLOWSHEET FOR SKIN ISSUES.HOB ELEVATED. HOB ELEVATED. BED IS LOCKED, IN LOWEST POSITION AND SIDE RAILS UP. CALL LIGHT WITHIN REACH OF THE PATIENT. WILL PERFORM PRESCRIBED WOUND TREATMENT IN A FEW. WILL TURN AND REPOSITION Q 2 HOURS. WILL CONTINUE TO MONITOR AND REASSESS FOR ANY CHANGES AND WILL CARRY OUT ANY ONGOING AND ACTIVE MD ORDER.
[2021-09-14] MEDS: PROSOURCE / PROSTAT (PYXIS) 30 ML UDC GT SCH ×2 (08:54→18:17)
[2021-09-14] MEDS: HYDROCORTISONE 5 MG TABLET GT SCH ×2 (08:54→18:17)
[2021-09-14] MEDS: QUETIAPINE FUMARATE 25 MG TABLET GT SCH ×2 (08:55→18:17)
[2021-09-14] MEDS: SERTRALINE HCL 25 MG TABLET GT SCH (08:55)
[2021-09-14] MEDS: POTASSIUM CHLORIDE 20 MEQ POWDER PACKET GT SCH (08:55)
[2021-09-14] MEDS: FLUDROCORTISONE 0.1 MG TABLET GT SCH (08:55)
[2021-09-14] MEDS: ASCORBIC ACID 500 MG TABLET GT SCH (08:55)
[2021-09-14] MEDS: DAKINS QUARTER STRENGTH (0.125%) 480 ML BOTTLE TOP SCH (08:57)
[2021-09-14] MEDS: THERAHONEY GEL 1.5 OZ TUBE TP SCH (08:57)
[2021-09-14] MEDS: ENOXAPARIN SODIUM 40 MG/0.4 ML DISP.SYRIN SQ SCH (08:59)
[2021-09-14] MEDS: IV D5/ 0.9% NACL 1,000 ML IV PRN ×2 (09:08→20:25)
--- NOTE | 2021-09-14 09:30 | NUR ---
RN NOTES DUE MEDS GIVEN
--- NOTE | 2021-09-14 09:30 | NUR ---
RN NOTES ALL NEEDS MET AT THIS TIME. STABLE VS. PM CARE AND WOUND CARE DONE EARLIER. TURNED AND REPOSITIONED EARLIER. ENDORSED TO NEXT SHIFT FOR E[facility]ON.
[2021-09-14] MEDS: VITAL AF 1.2 1,000 ML BOTTLE GT PRN (13:54)
[2021-09-14] MEDS ORDERED: LIDOCAINE 1%-EPI 1:100,000 20 ML VIAL TP ONE (14:00)
[2021-09-14] MEDS ORDERED: SILVER NITRATE APPLICATOR 1 EA BOX TP SCH (14:00)
[2021-09-14] MEDS ORDERED: NEUTRA PHOS 1 POWD.PACKET GT ONE (15:00)
--- NOTE | 2021-09-14 19:35 | NUR ---
ICU/FORGING PRESS LEVER TENDER RECEIVED REPORT FROM DAY NURSE. SEE FLOWSHEET FOR ASSESSMENT. THERE ARE MANY SKIN ISSUES WHICH ARE ADDRESSED ON THE FLOWSHEET, ALONG WITH THE INTERVENTIONS TO EACH. PT HAS IV DRIPS WHICH ARE ADDRESSED ON THE IV SPREAD SHEET ALONG WITH THE TITRATIONS TO THEM. PT WAS THEN TURNED AND REPOSITIONED FOR COMFORT AND CARE. NO ACUTE DISTRESS SEEN AT THIS TIME. WILL CONTINUE TO MONITOR THIS PT. NO ACUTE DISTRESS SEEN AT THIS TIME
--- NOTE | 2021-09-14 21:30 | NUR ---
ICU/ADMISSION SPECIALIST STABLE BLOOD PRESSURE, MADE CHARGE NURSE AWARE OF THIS, 1214/63 WITH HEART RATE 84. LEVO WAS THEN DECREASED DOWN TO 0.02 FROM 0.03. WILL CONTINUE TO MONITOR THIS PT AND HIS BLOOD PRESSURE.
--- NOTE | 2021-09-14 22:30 | NUR ---
ICU/HEAD SETTER STABLE BLOOD PRESSURE, MADE CHARGE NURSE AWARE OF THIS, 132/65 WITH HEART RATE 74. LEVO WAS THEN DECREASED DOWN TO 0.01 FROM 0.02. WILL CONTINUE TO MONITOR THIS PT AND HIS BLOOD PRESSURE.
--- NOTE | 2021-09-14 23:30 | NUR ---
ICU/CABIN EQUIPMENT SUPERVISOR STABLE BLOOD PRESSURE, MADE CHARGE NURSE AWARE OF THIS, 130'S-120'S WITH HEART RATE 70'S. LEVO WAS THEN PUT ON HOLD. WILL CONTINUE TO MONITOR THIS PT AND HIS BLOOD PRESSURE.
[2021-09-15] VITALS (42 sets, daily range): BP systolic 78–135; BP diastolic 47–85
[2021-09-15] MEDS: VANCOMYCIN 1 GM in IV D5W 250 ML IV SCH ×2
--- NOTE | 2021-09-15 00:35 | NUR ---
ICU/STAFF ANALYST VANCO TROUGH IS 23. PER HOSPITAL PROTOCOL VANCO IS TO BE HELD. WILL CALL PHARMACY IN MORNING TO MAKE THEM AWARE OF THE HIGH LEVEL.
[2021-09-15] MEDS: IPRATROPIUM NEB FS 0.5 MG/2.5 ML AMPUL.NEB NEB SCH ×6 (03:27→23:28)
[2021-09-15] MEDS ORDERED: MIDODRINE HCL (5MG) 5 MG TABLET ONE (04:31)
[2021-09-15] MEDS: MIDODRINE HCL (5MG) 5 MG TABLET GT SCH ×3 (04:41→20:12)
[2021-09-15] MEDS: MEROPENEM 1 G in IV NS 0.9% 100 ML IV SCH ×3 (04:45→20:58)
[2021-09-15] MEDS: IV D5/ 0.9% NACL 1,000 ML IV PRN ×2 (05:12→13:53)
[2021-09-15] MEDS: IV NS 0.9% 250 ML IV PRN ×2 (05:12→13:56)
[2021-09-15 05:28] LABS: BASOPHILS % (AUTO) 0.3 % (0.0-2.0); EOSINOPHILS % (AUTO) 4.8 % (0.0-6.0); HEMATOCRIT 23 % (39-51); HEMOGLOBIN 7.6 g/dL (13.5-17.5); LYMPHOCYTES # (AUTO) 1.5 K/uL (0.8-4.8); LYMPHOCYTES % (AUTO) 29.8 % (20.0-44.0); MEAN CORPUSCULAR HGB CONC 33 g/dl (31.0-36.0); MEAN CORPUSCULAR VOLUME 86 fL (80-96); MONOCYTES # (AUTO) 0.5 K/uL (0.1-1.30); MONOCYTES % (AUTO) 9.6 % (2.0-12.0); NEUTROPHILS # (AUTO) 2.8 K/uL (1.8-8.9); NEUTROPHILS % (AUTO) 55.5 % (43.0-81.0); PLATELET COUNT (AUTO) 252 K/uL (150-450); RED BLOOD CELL COUNT(AUTO) 2.69 MIL/uL (4.5-6.0); WHITE BLOOD COUNT (AUTO) 5.1 K/uL (4.3-11.0)
--- NOTE | 2021-09-15 07:25 | NUR ---
START OF SHIFT NOTES: RECEIVED PATIENT ON BED COMFORTABLY; OPEN EYES WITH NAME AND TOUCH; NO SSx OF ANY DISTRESS NOTED; IVF INFUSING AND GT FEEDING RUNNING PER MD ORDERS; FLEXISEAL INTACT; F/C DRAINING WELL BY GRAVITY, INTACT AND PATENT; AFEBRILE; WITH TRIPLE LUMEN IV-LINE ON LEFT FEMORAL,INTACT AND PATENT. CALL LIGHT WITHIN PT. REACH; BED IN LOWEST POSITION AND WHEELS LOCKED; WILL CONTINUE TO MONITOR PATIENT.
--- NOTE | 2021-09-15 07:26 | NUR ---
PER BISHOP's ENDORSEMENT; PATIENT IS NO LONGER ON LEVOPHED SINCE AROUND MIDNIGHT ON HER SHIFT DUE TO STABLE BP. WILL CONTINUE TO MONITOR.
[2021-09-15 08:33] LABS: CALCIUM, SERUM 8.4 mg/dL (8.5-10.1); CREATININE 0.3 mg/dL (0.6-1.3); MAGNESIUM 1.7 mg/dL (1.8-2.4); PHOSPHORUS 2.7 mg/dL (2.5-4.9); POTASSIUM 3.2 mmol/L (3.5-5.1)
[2021-09-15] MEDS: ENOXAPARIN SODIUM 40 MG/0.4 ML DISP.SYRIN SQ SCH (09:00)
--- NOTE | 2021-09-15 09:05 | NUR ---
DR. FRANKS VISITED PATIENT WITH NEW ORDER NOTED.
[2021-09-15] MEDS: FLUDROCORTISONE 0.1 MG TABLET GT SCH (09:22)
[2021-09-15] MEDS: SERTRALINE HCL 25 MG TABLET GT SCH (09:23)
[2021-09-15] MEDS: POTASSIUM CHLORIDE 20 MEQ POWDER PACKET GT SCH (09:23)
[2021-09-15] MEDS: ASCORBIC ACID 500 MG TABLET GT SCH (09:23)
[2021-09-15] MEDS: QUETIAPINE FUMARATE 25 MG TABLET GT SCH ×2 (09:23→18:22)
[2021-09-15] MEDS: PROSOURCE / PROSTAT (PYXIS) 30 ML UDC GT SCH ×2 (09:24→18:22)
[2021-09-15] MEDS: DAKINS QUARTER STRENGTH (0.125%) 480 ML BOTTLE TOP SCH (09:26)
[2021-09-15] MEDS: THERAHONEY GEL 1.5 OZ TUBE TP SCH (09:26)
[2021-09-15] MEDS: HYDROCORTISONE 5 MG TABLET GT SCH ×2 (09:32→18:22)
--- NOTE | 2021-09-15 12:04 | NUR ---
SPOKE WITH PHARMACIST AND HE SAID OKAY TO GIVE VANCO IV TODAY SCHEDULED
[2021-09-15] MEDS: VANCOMYCIN 0.75 GM in IV D5W 250 ML IV SCH ×2 (12:44→23:50)
[2021-09-15] MEDS: VITAL AF 1.2 1,000 ML BOTTLE GT PRN (13:53)
[2021-09-15] MEDS ORDERED: POTASSIUM CHLORIDE 20 MEQ POWDER PACKET GT ONE (18:30)
[2021-09-15] MEDS ORDERED: Magnesium 1GM/D5W 100ML PREMIX 100 ML IV SCH (18:30)
[2021-09-16] VITALS (78 sets, daily range): BP systolic 66–142; BP diastolic 41–87
[2021-09-16] MEDS: IPRATROPIUM NEB FS 0.5 MG/2.5 ML AMPUL.NEB NEB SCH ×6 (04:19→23:24)
[2021-09-16] MEDS: MIDODRINE HCL (5MG) 5 MG TABLET GT SCH ×3 (04:29→20:15)
[2021-09-16] MEDS: MEROPENEM 1 G in IV NS 0.9% 100 ML IV SCH ×3 (04:30→20:40)
[2021-09-16 04:40] LABS: CALCIUM, SERUM 8.7 mg/dL (8.5-10.1); CREATININE 0.4 mg/dL (0.6-1.3); MAGNESIUM 2.3 mg/dL (1.8-2.4); PHOSPHORUS 2.5 mg/dL (2.5-4.9); POTASSIUM 3.8 mmol/L (3.5-5.1)
[2021-09-16 04:49] LABS: BASOPHILS % (AUTO) 0.2 % (0.0-2.0); EOSINOPHILS % (AUTO) 6.7 % (0.0-6.0); HEMATOCRIT 24 % (39-51); HEMOGLOBIN 7.8 g/dL (13.5-17.5); LYMPHOCYTES # (AUTO) 1.6 K/uL (0.8-4.8); LYMPHOCYTES % (AUTO) 28.6 % (20.0-44.0); MEAN CORPUSCULAR HGB CONC 32 g/dl (31.0-36.0); MEAN CORPUSCULAR VOLUME 87 fL (80-96); MONOCYTES # (AUTO) 0.5 K/uL (0.1-1.30); MONOCYTES % (AUTO) 9.7 % (2.0-12.0); NEUTROPHILS % (AUTO) 54.8 % (43.0-81.0); PLATELET COUNT (AUTO) 236 K/uL (150-450); RED BLOOD CELL COUNT(AUTO) 2.75 MIL/uL (4.5-6.0); WHITE BLOOD COUNT (AUTO) 5.6 K/uL (4.3-11.0)
[2021-09-16] MEDS: NOREPINEPHRINE 8 MG in IV NS 0.9% 242 ML IV PRN (05:43)
[2021-09-16] MEDS: IV D5/ 0.9% NACL 1,000 ML IV PRN ×2 (05:58→15:15)
--- NOTE | 2021-09-16 06:15 | NUR ---
ICU/ZIPPER SETTER LOCKSTITCH LOW BP 80'S-60'S, NOTIFED CHARGE NURSE WHO THEN BEGAN LEVO AT 0.1MCG. WILL CONTINUE TO MONITOR THIS PT.
--- NOTE | 2021-09-16 07:04 | NUR ---
ICU/TECHNOLOGIES DIVISION CHAIR LEVO WAS TITRATED UP PER PROTOCOL FOR LOW BP. WILL CONTINUE TO MONITOR THIS PT.
--- NOTE | 2021-09-16 07:30 | NUR ---
RN NOTES PT FOUND SEMI FOWLERS DISPLAYING NO S/S OF DISTRESS, FLACC = 0 AND BILATERAL RISE AND FALL OF THE CHEST OBSERVED. TRACH DRESSING IS CLEAN AND DRY. L FEM TRI LUM IS PATIENT AND INTACT. PEG DRESSING IS CLEAN AND DRY, 0 RESIDUAL MEASURED. RECTAL TUBE IS BELOW PATIENT DRAINING BY GRAVITY. BAUMAN CATH BELOW PATIENT DRAINING BY GRAVITY. VSS, RN WILL MONITOR AND TREAT THROUGHOUT SHIFT. SAFETY MEASURES IN PLACE, BED LOCKED AND IN LOWEST POSITION, SIDE RAILS UPX2, CALL LIGHT WITHIN REACH, BED ALARM ARMED.
[2021-09-16] MEDS: PROSOURCE / PROSTAT (PYXIS) 30 ML UDC GT SCH ×2 (09:15→16:32)
[2021-09-16] MEDS: QUETIAPINE FUMARATE 25 MG TABLET GT SCH ×2 (09:17→16:31)
[2021-09-16] MEDS: SERTRALINE HCL 25 MG TABLET GT SCH (09:18)
[2021-09-16] MEDS: ASCORBIC ACID 500 MG TABLET GT SCH (09:18)
[2021-09-16] MEDS: POTASSIUM CHLORIDE 20 MEQ POWDER PACKET GT SCH (09:18)
[2021-09-16] MEDS: FLUDROCORTISONE 0.1 MG TABLET GT SCH (09:19)
[2021-09-16] MEDS: HYDROCORTISONE 5 MG TABLET GT SCH ×2 (09:25→16:31)
[2021-09-16] MEDS: THERAHONEY GEL 1.5 OZ TUBE TP SCH (09:29)
[2021-09-16] MEDS: DAKINS QUARTER STRENGTH (0.125%) 480 ML BOTTLE TOP SCH (09:29)
[2021-09-16] MEDS: ENOXAPARIN SODIUM 40 MG/0.4 ML DISP.SYRIN SQ SCH (09:30)
[2021-09-16] MEDS: VITAL AF 1.2 1,000 ML BOTTLE GT PRN (11:11)
[2021-09-16] MEDS: VANCOMYCIN 0.75 GM in IV D5W 250 ML IV SCH ×2 (12:00→16:50)
--- NOTE | 2021-09-16 12:00 | NUR ---
MD COMMUNICATION RN SPOKE TO MD ABOUT PT'S VANCO TROUGH. MD GAVE ORDER: LAB VANCO TROUGH. LAB RESULTED, VANCO TROUGH IS AT 25. RN WILL HOLD VANCOMYCIN
--- NOTE | 2021-09-16 19:15 | NUR ---
RN NOTES PT FOUND SEMI FOWLERS DISPLAYING NO S/S OF DISTRESS, FLACC = 0 AND BILATERAL RISE AND FALL OF THE CHEST OBSERVED. TRACH DRESSING IS CLEAN AND DRY. L FEM TRI LUM IS PATIENT AND INTACT. PEG DRESSING IS CLEAN AND DRY, 0 RESIDUAL MEASURED. RECTAL TUBE IS BELOW PATIENT DRAINING BY GRAVITY. BAUMAN CATH BELOW PATIENT DRAINING BY GRAVITY. SBAR AND REPORT GIVEN TO CUSTOMER DEVELOPMENT MANAGER RN, ALL QUESTIONS ANSWERED. SAFETY MEASURES IN PLACE, BED LOCKED AND IN LOWEST POSITION, SIDE RAILS UPX2, CALL LIGHT WITHIN REACH, BED ALARM ARMED. PT ENDORSED IN STABLE CONDITION FOR [place].
--- NOTE | 2021-09-16 19:45 | NUR ---
ICU/FORENSICS TEAM DIRECTOR RECEIVED REPORT FROM DAY NURSE. SEE FLOWSHEET FOR ASSESSMENT. THERE ARE MANY SKIN ISSUES WHICH ARE ADDRESSED ON THE FLOWSHEET, ALONG WITH THE INTERVENTIONS TO EACH. PT HAS IV DRIPS WHICH ARE ADDRESSED ON THE IV SPREAD SHEET ALONG WITH THE TITRATIONS TO THEM. PT WAS THEN TURNED AND REPOSITIONED FOR COMFORT AND CARE. NO ACUTE DISTRESS SEEN AT THIS TIME. WILL CONTINUE TO MONITOR THIS PT. NO ACUTE DISTRESS SEEN AT THIS T
[2021-09-17] VITALS (83 sets, daily range): BP systolic 60–150; BP diastolic 34–99
--- NOTE | 2021-09-17 00:10 | NUR ---
ICU/SOFTWARE CONFIGURATION ANALYST ACTIVE TITRATION OF LEVO FOR BLOOD PRESSURE, BY TAILINGS MAN NURSE. WILL CONTINUE TO MONITOR THIS PT.
[2021-09-17] MEDS: VITAL AF 1.2 1,000 ML BOTTLE GT PRN ×2 (03:28→20:57)
[2021-09-17] MEDS: IV D5/ 0.9% NACL 1,000 ML IV PRN ×2 (03:29→16:00)
[2021-09-17] MEDS: IPRATROPIUM NEB FS 0.5 MG/2.5 ML AMPUL.NEB NEB SCH ×6 (03:42→23:13)
[2021-09-17 04:02] LABS: BASOPHILS % (AUTO) 0.3 % (0.0-2.0); HEMATOCRIT 27 % (39-51); HEMOGLOBIN 8.6 g/dL (13.5-17.5); LYMPHOCYTES # (AUTO) 1.7 K/uL (0.8-4.8); LYMPHOCYTES % (AUTO) 26.3 % (20.0-44.0); MEAN CORPUSCULAR HGB CONC 32 g/dl (31.0-36.0); MEAN CORPUSCULAR VOLUME 88 fL (80-96); MONOCYTES # (AUTO) 0.5 K/uL (0.1-1.30); MONOCYTES % (AUTO) 8.5 % (2.0-12.0); NEUTROPHILS # (AUTO) 3.8 K/uL (1.8-8.9); NEUTROPHILS % (AUTO) 59.9 % (43.0-81.0); PLATELET COUNT (AUTO) 299 K/uL (150-450); RED BLOOD CELL COUNT(AUTO) 3.05 MIL/uL (4.5-6.0); WHITE BLOOD COUNT (AUTO) 6.3 K/uL (4.3-11.0)
--- NOTE | 2021-09-17 04:15 | NUR ---
ICU/AIR PLANT ENGINEER AM LABS WERE DRAWN AND AM CHEST XRAY DONE WELL. AWAIT FOR ANY ABNORMAL RESULTS.
[2021-09-17 04:18] LABS: CALCIUM, SERUM 8.8 mg/dL (8.5-10.1); PHOSPHORUS 2.5 mg/dL (2.5-4.9); POTASSIUM 3.7 mmol/L (3.5-5.1)
[2021-09-17] MEDS: MIDODRINE HCL (5MG) 5 MG TABLET GT SCH ×3 (04:23→20:55)
[2021-09-17] MEDS: MEROPENEM 1 G in IV NS 0.9% 100 ML IV SCH ×3 (04:24→20:55)
[2021-09-17] MEDS: VANCOMYCIN 0.75 GM in IV D5W 250 ML IV SCH ×2 (04:36→16:38)
[2021-09-17] MEDS: NOREPINEPHRINE 8 MG in IV NS 0.9% 242 ML IV PRN (04:38)
[2021-09-17 05:03] LABS: CREATININE 0.3 mg/dL (0.6-1.3)
[2021-09-17] MEDS: SERTRALINE HCL 25 MG TABLET GT SCH (08:33)
[2021-09-17] MEDS: FLUDROCORTISONE 0.1 MG TABLET GT SCH (08:33)
[2021-09-17] MEDS: ASCORBIC ACID 500 MG TABLET GT SCH (08:33)
[2021-09-17] MEDS: POTASSIUM CHLORIDE 20 MEQ POWDER PACKET GT SCH (08:33)
[2021-09-17] MEDS: HYDROCORTISONE 5 MG TABLET GT SCH (08:33)
[2021-09-17] MEDS: QUETIAPINE FUMARATE 25 MG TABLET GT SCH ×2 (08:34→16:38)
[2021-09-17] MEDS: THERAHONEY GEL 1.5 OZ TUBE TP SCH (08:36)
[2021-09-17] MEDS: DAKINS QUARTER STRENGTH (0.125%) 480 ML BOTTLE TOP SCH (08:36)
[2021-09-17] MEDS: PROSOURCE / PROSTAT (PYXIS) 30 ML UDC GT SCH ×2 (08:56→16:38)
[2021-09-17] MEDS: ENOXAPARIN SODIUM 40 MG/0.4 ML DISP.SYRIN SQ SCH (09:56)
--- NOTE | 2021-09-17 10:15 | NUR ---
MD VISIT DR ACOSTA VISITED PATIENT, RN INFORMED MD OF PT FACIAL GRIMACE. MD GAVE ORDERS, NORCO 5/325 MG GT PRN PAIN Q4H. RN ACKNOWLEDGED AND WILL ENTER ORDERS DIRECTED.
[2021-09-17] MEDS ORDERED: KETOROLAC TROMETHAMINE INJ 30 MG/ML VIAL IV PRN (10:30)
--- NOTE | 2021-09-17 10:40 | NUR ---
MD COMMUNICATION RN INFORMED MD OF DOUBLE CHECK WITH PROBABLE CROSS REACTIVITY BETWEEN NORCO AND MORPHINE ALLERGY. ORDERS CHANGED, TORADOL 15MG PRN PAIN Q8H. RN ACKNOWLEDGED AND WILL ENTER ORDERS DIRECTED.
[2021-09-17] MEDS ORDERED: HYDROCORTISONE 5 MG TABLET GT SCH ×2 (12:00→13:00)
[2021-09-17] MEDS: HYDROCORTISONE SOD SUCCINATE 100 MG/2 ML VIAL IV SCH ×2 (12:32→20:55)
--- NOTE | 2021-09-17 19:10 | NUR ---
RN NOTES PT FOUND SEMI FOWLERS DISPLAYING NO S/S OF DISTRESS, FLACC = 0 AND BILATERAL RISE AND FALL OF THE CHEST OBSERVED. TRACH DRESSING IS CLEAN AND DRY. L FEM TRI LUM IS PATIENT AND INTACT. PEG DRESSING IS CLEAN AND DRY, 0 RESIDUAL MEASURED. RECTAL TUBE IS BELOW PATIENT DRAINING BY GRAVITY. BAUMAN CATH BELOW PATIENT DRAINING BY GRAVITY. SBAR AND REPORT GIVEN TO DISTILLERY MANAGER RN, ALL QUESTIONS ANSWERED. SAFETY MEASURES IN PLACE, BED LOCKED AND IN LOWEST POSITION, SIDE RAILS UPX2, CALL LIGHT WITHIN REACH, BED ALARM ARMED. PT ENDORSED IN STABLE CONDITION FOR E[facility]ON.
--- NOTE | 2021-09-17 19:57 | NUR ---
RN NOTE RECEIVED PATIENT IN BED, SLEEPING, OPENS EYES TO NAME AND TOUCH. ABLE TO NOD YES OR NO TO QUESTIONS ASKED. BREATHING EVEN AND UNLABORED. TRACH PRESENT. PORTEX 7. VENT SETTINGS ARE FOLLOWS, AC 16, VT 550, FIO2 40%, PEEP OFF. TOLERATING WELL, O2 SATURATION OF 99-100 PERCENT. OFFERED TRACHEAL SUCTION, REFUSED. DENIES CHEST PAIN. SKIN WARM AND DRY. NOTED WITH LEFT FEMORAL TRIPPLE LUMEN IV ACCESS. CURRENTLY INFUSING LEVO AT 0.02 MCG/KG/MIN & D5 NS AT 100 CC/HR. NO LEAKING, INTACT. NOTED WITH FLEXI-SEAL DRAINING BY GRAVITY. NOTED WITH INDWELLING BAUMAN CATHETER, INTACT, DRAINING YELLOW URINE BY GRAVITY. ASSISTED WITH TURNING AND REPOSITIONING. ALL NEEDS ATTENDED. BED LOW, IN LOCKED POSITION, CALL LIGHT WITHIN REACH.
[2021-09-18] VITALS (95 sets, daily range): BP systolic 73–156; BP diastolic 40–87
[2021-09-18] MEDS: IV D5/ 0.9% NACL 1,000 ML IV PRN ×2 (03:01→16:09)
[2021-09-18] MEDS: IPRATROPIUM NEB FS 0.5 MG/2.5 ML AMPUL.NEB NEB SCH ×6 (03:12→23:40)
[2021-09-18] MEDS: NOREPINEPHRINE 8 MG in IV NS 0.9% 242 ML IV PRN (04:14)
[2021-09-18 04:15] LABS: BASOPHILS % (AUTO) 0.2 % (0.0-2.0); HEMATOCRIT 26 % (39-51); HEMOGLOBIN 8.6 g/dL (13.5-17.5); LYMPHOCYTES # (AUTO) 1.1 K/uL (0.8-4.8); LYMPHOCYTES % (AUTO) 12.9 % (20.0-44.0); MEAN CORPUSCULAR HGB CONC 33 g/dl (31.0-36.0); MEAN CORPUSCULAR VOLUME 87 fL (80-96); MONOCYTES # (AUTO) 0.3 K/uL (0.1-1.30); MONOCYTES % (AUTO) 3.3 % (2.0-12.0); NEUTROPHILS # (AUTO) 7.2 K/uL (1.8-8.9); NEUTROPHILS % (AUTO) 83.6 % (43.0-81.0); PLATELET COUNT (AUTO) 310 K/uL (150-450); RED BLOOD CELL COUNT(AUTO) 3.03 MIL/uL (4.5-6.0); WHITE BLOOD COUNT (AUTO) 8.6 K/uL (4.3-11.0)
[2021-09-18] MEDS: MEROPENEM 1 G in IV NS 0.9% 100 ML IV SCH ×3 (04:16→21:00)
[2021-09-18] MEDS: HYDROCORTISONE SOD SUCCINATE 100 MG/2 ML VIAL IV SCH ×3 (04:16→21:00)
[2021-09-18] MEDS: MIDODRINE HCL (5MG) 5 MG TABLET GT SCH ×3 (04:17→19:56)
[2021-09-18 04:37] LABS: CALCIUM, SERUM 8.7 mg/dL (8.5-10.1); CREATININE 0.4 mg/dL (0.6-1.3); POTASSIUM 3.2 mmol/L (3.5-5.1)
[2021-09-18] MEDS: VANCOMYCIN 0.75 GM in IV D5W 250 ML IV SCH ×2 (05:01→17:08)
--- NOTE | 2021-09-18 07:15 | NUR ---
RN NOTES RECEIVED PT IN BED. ABLE TO NOD YES OR NO TO QUESTIONS WHEN ASKED. TRACH PRESENT. PORTEX 7. VENT SETTINGS ARE FOLLOWS, AC 16, VT 550, FIO2 40%, PEEP OFF. TOLERATING WELL, O2 SAT @99%. WITH LEFT FEMORAL TRIPLE LUMEN INTACT, PATENT AND FLUSHED. RUNNING LEVO @0.02 MCG/KG/MIN AND D5NS @100CC/HR. WITH FLEXI-SEAL DRAINING BY GRAVITY. WITH BAUMAN CATHETER INTACT, DRAINING YELLOW URINE BY GRAVITY. SAFETY MEASURES IN PLACE. BED LOCKED AND IN LOWEST POSITION WITH SIDE RAILS UP X3. WILL CONTINUE TO MONITOR.
[2021-09-18] MEDS: POTASSIUM CHLORIDE 20 MEQ POWDER PACKET GT SCH (08:34)
[2021-09-18] MEDS: ASCORBIC ACID 500 MG TABLET GT SCH (08:34)
[2021-09-18] MEDS: DAKINS QUARTER STRENGTH (0.125%) 480 ML BOTTLE TOP SCH (08:35)
[2021-09-18] MEDS: FLUDROCORTISONE 0.1 MG TABLET GT SCH (08:35)
[2021-09-18] MEDS: THERAHONEY GEL 1.5 OZ TUBE TP SCH (08:35)
[2021-09-18] MEDS: QUETIAPINE FUMARATE 25 MG TABLET GT SCH ×2 (08:35→17:08)
[2021-09-18] MEDS: SERTRALINE HCL 25 MG TABLET GT SCH (08:35)
[2021-09-18] MEDS: PROSOURCE / PROSTAT (PYXIS) 30 ML UDC GT SCH ×2 (08:36→17:09)
[2021-09-18] MEDS: ENOXAPARIN SODIUM 40 MG/0.4 ML DISP.SYRIN SQ SCH (08:38)
[2021-09-18] MEDS ORDERED: NEUTRA PHOS 1 POWD.PACKET GT ONE (10:00)
[2021-09-18] MEDS: VITAL AF 1.2 1,000 ML BOTTLE GT PRN (15:55)
--- NOTE | 2021-09-18 19:07 | NUR ---
RN NOTES NO SIGNIFICANT CHANGES THROUGHOUT THE SHIFT. ALL DUE MEDS GIVEN. NEEDS ATTENDED. KEPT CLEAN AND COMFORTABLE. TOLERATING VENT SETTINGS WELL. SAFETY MEASURES IMPLEMENTED. ENDORSED TO NIGHT RN FOR EASTON.
--- NOTE | 2021-09-18 19:25 | NUR ---
PICK AND SHOVEL MAN UNABLE TO FLUSH TLC; NO BLOOD RETURN NOTED FROM EITHER PORT.
[2021-09-19] VITALS (52 sets, daily range): BP systolic 72–126; BP diastolic 39–78
[2021-09-19] MEDS: IPRATROPIUM NEB FS 0.5 MG/2.5 ML AMPUL.NEB NEB SCH ×5 (03:22→19:35)
[2021-09-19] MEDS: MEROPENEM 1 G in IV NS 0.9% 100 ML IV SCH ×3 (04:00→20:00)
[2021-09-19] MEDS: MIDODRINE HCL (5MG) 5 MG TABLET GT SCH ×3 (04:00→20:00)
[2021-09-19] MEDS: VANCOMYCIN 0.75 GM in IV D5W 250 ML IV SCH ×2 (05:00→16:30)
[2021-09-19] MEDS: HYDROCORTISONE SOD SUCCINATE 100 MG/2 ML VIAL IV SCH ×3 (05:02→21:04)
[2021-09-19] MEDS: IV D5/ 0.9% NACL 1,000 ML IV PRN ×2 (06:30→17:00)
--- NOTE | 2021-09-19 07:05 | NUR ---
RN NOTES RECEIVED PT IN BED. ABLE TO NOD YES OR NO TO QUESTIONS WHEN ASKED. TRACH PRESENT. PORTEX 7. VENT SETTINGS ARE FOLLOWS, AC 16, VT 550, FIO2 70%, PEEP OFF. TOLERATING WELL, O2 SAT @99%. WITH LEFT FEMORAL TRIPLE LUMEN INTACT, PATENT AND FLUSHED. D5NS @100CC/HR. WITH FLEXI-SEAL DRAINING BY GRAVITY. WITH BAUMAN CATHETER INTACT, DRAINING YELLOW URINE BY GRAVITY. SAFETY MEASURES IN PLACE. BED LOCKED AND IN LOWEST POSITION WITH SIDE RAILS UP X3. WILL CONTINUE TO MONITOR.
[2021-09-19] MEDS: POTASSIUM CHLORIDE 20 MEQ POWDER PACKET GT SCH (09:00)
[2021-09-19] MEDS: ASCORBIC ACID 500 MG TABLET GT SCH (09:00)
[2021-09-19] MEDS: SERTRALINE HCL 25 MG TABLET GT SCH (09:00)
[2021-09-19] MEDS: PROSOURCE / PROSTAT (PYXIS) 30 ML UDC GT SCH ×2 (09:00→16:32)
[2021-09-19] MEDS: FLUDROCORTISONE 0.1 MG TABLET GT SCH (09:01)
[2021-09-19] MEDS: QUETIAPINE FUMARATE 25 MG TABLET GT SCH ×2 (09:01→16:31)
[2021-09-19] MEDS: ENOXAPARIN SODIUM 40 MG/0.4 ML DISP.SYRIN SQ SCH (09:05)
[2021-09-19] MEDS: DAKINS QUARTER STRENGTH (0.125%) 480 ML BOTTLE TOP SCH (09:45)
[2021-09-19] MEDS: THERAHONEY GEL 1.5 OZ TUBE TP SCH (09:45)
[2021-09-19] MEDS: VITAL AF 1.2 1,000 ML BOTTLE GT PRN (12:18)
[2021-09-19 13:32] LABS: BASOPHILS % (AUTO) 0.1 % (0.0-2.0); EOSINOPHILS % (AUTO) 0.1 % (0.0-6.0); HEMATOCRIT 23 % (39-51); HEMOGLOBIN 7.6 g/dL (13.5-17.5); LYMPHOCYTES # (AUTO) 1.2 K/uL (0.8-4.8); LYMPHOCYTES % (AUTO) 11.5 % (20.0-44.0); MEAN CORPUSCULAR HGB CONC 33 g/dl (31.0-36.0); MEAN CORPUSCULAR VOLUME 87 fL (80-96); MONOCYTES # (AUTO) 0.6 K/uL (0.1-1.30); MONOCYTES % (AUTO) 5.5 % (2.0-12.0); NEUTROPHILS # (AUTO) 8.6 K/uL (1.8-8.9); NEUTROPHILS % (AUTO) 82.8 % (43.0-81.0); PLATELET COUNT (AUTO) 258 K/uL (150-450); RED BLOOD CELL COUNT(AUTO) 2.64 MIL/uL (4.5-6.0); WHITE BLOOD COUNT (AUTO) 10.4 K/uL (4.3-11.0)
[2021-09-19 14:11] LABS: CALCIUM, SERUM 8.4 mg/dL (8.5-10.1); CREATININE 0.4 mg/dL (0.6-1.3); MAGNESIUM 2.2 mg/dL (1.8-2.4); PHOSPHORUS 1.8 mg/dL (2.5-4.9); POTASSIUM 3.2 mmol/L (3.5-5.1)
[2021-09-19] MEDS ORDERED: NEUTRA PHOS 1 POWD.PACKET GT ONE (16:30)
[2021-09-19] MEDS: HYDROGEL DRESSING 90 GM TUBE TP SCH (19:59)
[2021-09-20] VITALS (37 sets, daily range): BP systolic 88–159; BP diastolic 52–98
[2021-09-20] MEDS: IPRATROPIUM NEB FS 0.5 MG/2.5 ML AMPUL.NEB NEB SCH ×7 (00:07→23:43)
[2021-09-20] MEDS: MIDODRINE HCL (5MG) 5 MG TABLET GT SCH ×3 (03:30→19:50)
[2021-09-20] MEDS: MEROPENEM 1 G in IV NS 0.9% 100 ML IV SCH ×3 (04:00→20:00)
[2021-09-20] MEDS: HYDROCORTISONE SOD SUCCINATE 100 MG/2 ML VIAL IV SCH ×3 (05:00→20:02)
[2021-09-20] MEDS: VANCOMYCIN 0.75 GM in IV D5W 250 ML IV SCH ×2 (05:00→18:51)
[2021-09-20 05:19] LABS: BASOPHILS % (AUTO) 0.1 % (0.0-2.0); HEMATOCRIT 27 % (39-51); HEMOGLOBIN 8.7 g/dL (13.5-17.5); LYMPHOCYTES % (AUTO) 16.6 % (20.0-44.0); MEAN CORPUSCULAR HGB CONC 32 g/dl (31.0-36.0); MEAN CORPUSCULAR VOLUME 86 fL (80-96); MONOCYTES # (AUTO) 0.3 K/uL (0.1-1.30); NEUTROPHILS # (AUTO) 4.8 K/uL (1.8-8.9); NEUTROPHILS % (AUTO) 78.3 % (43.0-81.0); PLATELET COUNT (AUTO) 329 K/uL (150-450); RED BLOOD CELL COUNT(AUTO) 3.14 MIL/uL (4.5-6.0); WHITE BLOOD COUNT (AUTO) 6.2 K/uL (4.3-11.0)
[2021-09-20 05:31] LABS: CALCIUM, SERUM 8.6 mg/dL (8.5-10.1); CREATININE 0.4 mg/dL (0.6-1.3); MAGNESIUM 2.1 mg/dL (1.8-2.4); PHOSPHORUS 1.9 mg/dL (2.5-4.9)
[2021-09-20 05:35] LABS: POTASSIUM 2.7 mmol/L (3.5-5.1)
[2021-09-20] MEDS: IV D5/ 0.9% NACL 1,000 ML IV PRN (06:30)
--- NOTE | 2021-09-20 08:50 | NUR ---
DR. SERNA VISITED PT. AND MADE AWARE OF LAB TEST RESULT. WITH NEW ORDERS NOTED.
[2021-09-20] MEDS: SERTRALINE HCL 25 MG TABLET GT SCH (09:01)
[2021-09-20] MEDS: POTASSIUM CHLORIDE 20 MEQ POWDER PACKET GT SCH (09:01)
[2021-09-20] MEDS: FLUDROCORTISONE 0.1 MG TABLET GT SCH (09:02)
[2021-09-20] MEDS: QUETIAPINE FUMARATE 25 MG TABLET GT SCH ×2 (09:02→17:05)
[2021-09-20] MEDS: PROSOURCE / PROSTAT (PYXIS) 30 ML UDC GT SCH ×2 (09:03→17:05)
[2021-09-20] MEDS: DAKINS QUARTER STRENGTH (0.125%) 480 ML BOTTLE TOP SCH (09:04)
[2021-09-20] MEDS: ASCORBIC ACID 500 MG TABLET GT SCH (09:04)
[2021-09-20] MEDS: THERAHONEY GEL 1.5 OZ TUBE TP SCH (09:05)
[2021-09-20] MEDS: ENOXAPARIN SODIUM 40 MG/0.4 ML DISP.SYRIN SQ SCH (09:08)
[2021-09-20] MEDS: HYDROGEL DRESSING 90 GM TUBE TP SCH (09:14)
[2021-09-20] MEDS: POTASSIUM CHLORIDE IV SCH ×2 (09:16→22:55)
[2021-09-20] MEDS: NS 0.9% IV SCH ×2 (09:16→22:55)
[2021-09-20] MEDS: VITAL AF 1.2 1,000 ML BOTTLE GT PRN (09:31)
[2021-09-20] MEDS ORDERED: K PHOS NEUTRAL 250 MG TABLET PO ONE (15:30)
--- NOTE | 2021-09-20 19:00 | NUR ---
RN CLOSING NOTES: PT. ON BED COMFORTABLY, NO SSx OF DISTRESS NOTED AT THIS TIME. ALL DUE MEDS GIVEN ORDERED. CALL LIGHT WITHIN REACH. ENDORSED TO THOMAS FOR CONTINUITY OF CARE.
[2021-09-20] MEDS ORDERED: IV NS 0.9% 250 ML IV PRN (20:00)
[2021-09-20] MEDS: IV NS 0.9% 250 ML IV PRN (20:00)
[2021-09-21] VITALS (30 sets, daily range): BP systolic 68–157; BP diastolic 36–99
[2021-09-21] MEDS: VITAL AF 1.2 1,000 ML BOTTLE GT PRN (03:06)
[2021-09-21] MEDS: IPRATROPIUM NEB FS 0.5 MG/2.5 ML AMPUL.NEB NEB SCH ×6 (03:40→23:55)
[2021-09-21] MEDS: MEROPENEM 1 G in IV NS 0.9% 100 ML IV SCH (04:00)
[2021-09-21] MEDS: MIDODRINE HCL (5MG) 5 MG TABLET GT SCH ×3 (04:00→20:45)
[2021-09-21 05:06] LABS: BASOPHILS % (AUTO) 0.2 % (0.0-2.0); EOSINOPHILS % (AUTO) 0.2 % (0.0-6.0); HEMATOCRIT 27 % (39-51); HEMOGLOBIN 8.8 g/dL (13.5-17.5); LYMPHOCYTES # (AUTO) 1.2 K/uL (0.8-4.8); LYMPHOCYTES % (AUTO) 20.1 % (20.0-44.0); MEAN CORPUSCULAR HGB CONC 33 g/dl (31.0-36.0); MEAN CORPUSCULAR VOLUME 86 fL (80-96); MONOCYTES # (AUTO) 0.6 K/uL (0.1-1.30); NEUTROPHILS # (AUTO) 4.4 K/uL (1.8-8.9); NEUTROPHILS % (AUTO) 70.5 % (43.0-81.0); PLATELET COUNT (AUTO) 363 K/uL (150-450); RED BLOOD CELL COUNT(AUTO) 3.14 MIL/uL (4.5-6.0); WHITE BLOOD COUNT (AUTO) 6.2 K/uL (4.3-11.0)
[2021-09-21] MEDS: HYDROCORTISONE SOD SUCCINATE 100 MG/2 ML VIAL IV SCH ×3 (05:15→16:27)
[2021-09-21] MEDS: VANCOMYCIN 0.75 GM in IV D5W 250 ML IV SCH (05:15)
[2021-09-21 05:22] LABS: CALCIUM, SERUM 8.7 mg/dL (8.5-10.1); CREATININE 0.4 mg/dL (0.6-1.3); PHOSPHORUS 1.7 mg/dL (2.5-4.9); POTASSIUM 3.2 mmol/L (3.5-5.1)
--- NOTE | 2021-09-21 07:00 | NUR ---
RN NOTES RECEIVED PT ON BED. ABLE TO NOD YES OR NO TO QUESTIONS WHEN ASKED, FOLLOWS SIMPLE COMMAND , TRACH PRESENT. PORTEX 7. VENT SETTINGS ARE FOLLOWS, AC 16, VT 550, FIO2 70%. TOLERATING WELL, O2 SAT WNL . WITH LEFT FEMORAL TRIPLE LUMEN INTACT, NS @75 CC/HR. WITH FLEXI-SEAL DRAINING BY GRAVITY. WITH BAUMAN CATHETER INTACT, DRAINING YELLOW URINE BY GRAVITY. SAFETY MEASURES IN PLACE. BED LOCKED AND IN LOWEST POSITION WITH SIDE RAILS UP X3. WILL CONTINUE TO MONITOR.
[2021-09-21] MEDS: QUETIAPINE FUMARATE 25 MG TABLET GT SCH ×2 (08:15→16:27)
[2021-09-21] MEDS: FLUDROCORTISONE 0.1 MG TABLET GT SCH (08:15)
[2021-09-21] MEDS: ASCORBIC ACID 500 MG TABLET GT SCH (08:16)
[2021-09-21] MEDS: SERTRALINE HCL 25 MG TABLET GT SCH (08:16)
[2021-09-21] MEDS: ENOXAPARIN SODIUM 40 MG/0.4 ML DISP.SYRIN SQ SCH (08:17)
[2021-09-21] MEDS: HYDROGEL DRESSING 90 GM TUBE TP SCH (08:18)
[2021-09-21] MEDS: THERAHONEY GEL 1.5 OZ TUBE TP SCH (08:21)
[2021-09-21] MEDS: DAKINS QUARTER STRENGTH (0.125%) 480 ML BOTTLE TOP SCH (09:19)
[2021-09-21] MEDS: PROSOURCE / PROSTAT (PYXIS) 30 ML UDC GT SCH ×2 (09:19→16:26)
[2021-09-21] MEDS ORDERED: NEUTRA PHOS 1 POWD.PACKET GT ONE (10:00)
[2021-09-21] MEDS ORDERED: POTASSIUM CHLORIDE 20 MEQ POWDER PACKET GT SCH (10:00)
--- NOTE | 2021-09-21 12:00 | NUR ---
RN NOTES TRACH AND ORAL CARE DONE, NO DISTESS NOTED, CONTINUE TO MONITOR .
[2021-09-21] MEDS: NS 0.9% IV SCH (13:59)
[2021-09-21] MEDS: POTASSIUM CHLORIDE IV SCH (13:59)
--- NOTE | 2021-09-21 17:45 | NUR ---
RN NOTES PT TRANSFERED TO ROOM 118-1, AYANA STATUS VIA ACLS PROTOCAL WITH ALL HIS BELONGINGS IN STABLE CONDITION . REPORT GIVEN TO JACKY MONGE FOR CONTINUITY OF CARE
--- NOTE | 2021-09-21 18:12 | NUR ---
RT Patient transferred from room 259 to 118. Vent plugged into red outlet. Ambu bag at bedside. No SOB noted.
--- NOTE | 2021-09-21 18:14 | NUR ---
HOME SECURITY ALARM INSTALLER/CLOSING NOTES RECEIVED PT FROM ICU, DX OF SEPTIC SHOCK. PT HAS HISTORY OF CHF, HTN, RESP. FAILURE, BIPOLAR, SCHIZOPHRENIA, OSTEOMYELITIS, ANEMIA WITH ALLERGY TO MORPHINE. ATTENDING DOCTOR; ANGIE BLACKMAN. PT CAME TO UNIT VIA BED. PT IS A/O X 1 BUT IS ABLE TO ANSWER QUESTIONS AND ACKNOWLEDGE WITH HEAD NODS. NO S/S OF RESP DISTRESS OR C/O PAIN AT THIS TIME. PT IS VENT DEPENDENT WITH SETTINGS P#7, AC 16, TV 550, FIO2 40%. TELEMETRY SHOWS V-PACING. PT HAS A FLEXISEAL WITH 400ML OUTPUT. BAUMAN CATH NOTED WITH 400 ML. PT HAS G TUBE RUNNING VITAL AF 1.2 @ 60ML /HR. IV ACCESS IS AT LEFT FEMORAL TLC RUNNING NS KCL @ 75ML/HR. PT HAS NON-INTACT SKIN ON SACRAL, R/L HIP, BOTH HEELS. ALL SAFETY MEASURES IN PLACE, BED IN LOWEST LOCKED POSITION, SR UP X3, CALL LIGHT WITHIN REACH. WILL ENDORSE TO CONTACT CENTER ANALYST NURSE FOR E[facility].
--- NOTE | 2021-09-21 20:08 | NUR ---
RN NOTE PATIENT IN BED ALERT AND ORIENTED X1, NODS HEAD TO SIMPLE QUESTIONS. ON TRACH TO VENT P #7, AC 16, TV 550, FIO2 40%, PEEP 0. TOLERATING VENT SETTINGS WELL. V-PACING ON MONITOR. BAUMAN CATH AND FLEXISEAL IN PLACE, DRAINING VIA GRAVITY. ON G-TUBE VITAL AF 1.2 @ 60ML/HR, NO RESIDUAL NOTED. IV ACCESS ON LEFT FEMORAL TLC PATENT AND INTACT, INFUSING NS WITH 60MEQ KCL @ 75ML/HR. BED LOCKED AND IN LOWEST POSITION. CALL LIGHT WITHIN REACH. ALL NEEDS ANTICIPATED.
[2021-09-22] VITALS: BP 111/54
[2021-09-22] MEDS: POTASSIUM CHLORIDE IV SCH ×2 (02:46→17:16)
[2021-09-22] MEDS: NS 0.9% IV SCH ×2 (02:46→17:16)
[2021-09-22 04:00] VITALS: BP 125/93
[2021-09-22] MEDS: IPRATROPIUM NEB FS 0.5 MG/2.5 ML AMPUL.NEB NEB SCH ×6 (04:15→23:35)
[2021-09-22] MEDS: MIDODRINE HCL (5MG) 5 MG TABLET GT SCH ×3 (05:16→20:01)
[2021-09-22 07:29] LABS: BASOPHILS % (AUTO) 0.1 % (0.0-2.0); HEMATOCRIT 28 % (39-51); HEMOGLOBIN 9.1 g/dL (13.5-17.5); LYMPHOCYTES # (AUTO) 2.4 K/uL (0.8-4.8); LYMPHOCYTES % (AUTO) 31.2 % (20.0-44.0); MEAN CORPUSCULAR HGB CONC 33 g/dl (31.0-36.0); MEAN CORPUSCULAR VOLUME 87 fL (80-96); MONOCYTES # (AUTO) 0.8 K/uL (0.1-1.30); MONOCYTES % (AUTO) 10.5 % (2.0-12.0); NEUTROPHILS # (AUTO) 4.3 K/uL (1.8-8.9); NEUTROPHILS % (AUTO) 57.2 % (43.0-81.0); PLATELET COUNT (AUTO) 391 K/uL (150-450); RED BLOOD CELL COUNT(AUTO) 3.21 MIL/uL (4.5-6.0); WHITE BLOOD COUNT (AUTO) 7.5 K/uL (4.3-11.0)
[2021-09-22 07:37] LABS: CALCIUM, SERUM 9.1 mg/dL (8.5-10.1); CREATININE 0.3 mg/dL (0.6-1.3); MAGNESIUM 1.9 mg/dL (1.8-2.4); PHOSPHORUS 2.2 mg/dL (2.5-4.9); POTASSIUM 3.8 mmol/L (3.5-5.1)
[2021-09-22 08:00] VITALS: BP 137/73
[2021-09-22] MEDS: SERTRALINE HCL 25 MG TABLET GT SCH (09:26)
[2021-09-22] MEDS: ENOXAPARIN SODIUM 40 MG/0.4 ML DISP.SYRIN SQ SCH (09:27)
[2021-09-22] MEDS: HYDROCORTISONE SOD SUCCINATE 100 MG/2 ML VIAL IV SCH ×2 (09:27→17:17)
[2021-09-22] MEDS: FLUDROCORTISONE 0.1 MG TABLET GT SCH (09:28)
[2021-09-22] MEDS: ASCORBIC ACID 500 MG TABLET GT SCH (09:28)
[2021-09-22] MEDS: QUETIAPINE FUMARATE 25 MG TABLET GT SCH ×2 (09:28→17:16)
[2021-09-22] MEDS: PROSOURCE / PROSTAT (PYXIS) 30 ML UDC GT SCH ×2 (09:29→17:17)
[2021-09-22] MEDS: DAKINS QUARTER STRENGTH (0.125%) 480 ML BOTTLE TOP SCH (09:29)
[2021-09-22] MEDS: HYDROGEL DRESSING 90 GM TUBE TP SCH (09:30)
[2021-09-22] MEDS: THERAHONEY GEL 1.5 OZ TUBE TP SCH (09:30)
[2021-09-22] MEDS ORDERED: NEUTRA PHOS 1 POWD.PACKET GT ONE (11:00)
[2021-09-22 12:00] VITALS: BP 89/60
[2021-09-22 16:00] VITALS: BP 81/49
--- NOTE | 2021-09-22 19:20 | NUR ---
RN NOTE RECEIVED PATIENT IN BED ON MECHANICAL VENT SETTING TRACH PORTEX #7 AC 16 TV 550 PEEP 5 FIO2:30% ALERT ORIENTED X1 NODS HEAD,BILATERAL UPPER EXTREMITIES CONTRACTED, ON G-TUBE FEEDING VITAL AF 1.2 60CC/HR CHECKED PLACEMENT IN PLACE NO RESIDUAL NOTED,IV SITE IS ON LEFT FEMORAL TLC INTACT PATENT NS WITH KCL IV RUNNING 75CC/HR BAUMAN CATH IN PLACE URINE DRAINING BY GRAVITY,RECTAL TUBE IN PLACE,SAFETY MEASURE IMPLEMENT BED IN LOW POSITION AND LOCKED,HEAD OF THE BED ELEVATED,CONTINUE TO MONITOR.
[2021-09-22 20:00] VITALS: BP 114/62
[2021-09-22] MEDS ORDERED: LIDOCAINE 1%-EPI 1:100,000 20 ML VIAL TP ONE (20:00)
[2021-09-22] MEDS ORDERED: LIDOCAINE 2%-EPI 1:100,000 30 ML VIAL TP ONE (20:30)
--- NOTE | 2021-09-22 22:00 | NUR ---
RN NOTE PATIENT'S DID FACE TIME WITH PATIENT.
[2021-09-23] VITALS: BP 128/72
[2021-09-23 04:00] VITALS: BP 131/63
[2021-09-23] MEDS: MIDODRINE HCL (5MG) 5 MG TABLET GT SCH ×3 (04:11→20:15)
[2021-09-23] MEDS: IPRATROPIUM NEB FS 0.5 MG/2.5 ML AMPUL.NEB NEB SCH ×6 (04:18→23:56)
[2021-09-23] MEDS: NS 0.9% IV SCH ×2 (04:55→19:36)
[2021-09-23] MEDS: POTASSIUM CHLORIDE IV SCH ×2 (04:55→19:36)
[2021-09-23 06:46] LABS: BASOPHILS % (AUTO) 0.2 % (0.0-2.0); EOSINOPHILS % (AUTO) 1.7 % (0.0-6.0); HEMATOCRIT 29 % (39-51); HEMOGLOBIN 9.3 g/dL (13.5-17.5); LYMPHOCYTES # (AUTO) 2.6 K/uL (0.8-4.8); LYMPHOCYTES % (AUTO) 29.9 % (20.0-44.0); MEAN CORPUSCULAR HGB CONC 32 g/dl (31.0-36.0); MEAN CORPUSCULAR VOLUME 87 fL (80-96); MONOCYTES # (AUTO) 0.6 K/uL (0.1-1.30); MONOCYTES % (AUTO) 7.4 % (2.0-12.0); NEUTROPHILS # (AUTO) 5.2 K/uL (1.8-8.9); NEUTROPHILS % (AUTO) 60.8 % (43.0-81.0); PLATELET COUNT (AUTO) 410 K/uL (150-450); RED BLOOD CELL COUNT(AUTO) 3.29 MIL/uL (4.5-6.0); WHITE BLOOD COUNT (AUTO) 8.6 K/uL (4.3-11.0)
--- NOTE | 2021-09-23 06:49 | NUR ---
RN NOTE PATIENT REMAINS ON ALERT ORIENTED X1 ON MECHANICAL VENT NO SOB NOT ACUTE DISTRESS NOTED ALL DUE MEDS GIVEN MD ORDERED KEPT CLEAN AND DRY ALL THE TIME,REPOSITION EVERY 2 HOURS ALL NEEDS MET ENDORSE NEXT COMING SHIFT FOR CONTINUATION OF CARE
[2021-09-23 07:37] LABS: CALCIUM, SERUM 9.2 mg/dL (8.5-10.1); CREATININE 0.3 mg/dL (0.6-1.3); MAGNESIUM 1.9 mg/dL (1.8-2.4); PHOSPHORUS 3.2 mg/dL (2.5-4.9); POTASSIUM 4.1 mmol/L (3.5-5.1)
--- NOTE | 2021-09-23 07:51 | NUR ---
RN OPENING NOTE PATIENT RECEIVED IN BED, AO x 1, ABLE TO RESPONDS ALL STIMULI. IN NO ACUTE DISTRESS NOTED. PATIENT HAS ON TRACH, RESPIRATORY EVEN AND UNLABORED ON VENTILATOR. SKIN IS WARM TO TOUCH, KEEP CLEAN/DRY, INTACT IV SITE. BAUMAN CATH CONNECTING TO URINE BAG AND NOTICED LIGHT YELLOW IN COLOR . KEPT ELEVATED HOB FOR ENSURE AIRWAY AND ASPIRATION PRECAUTION, ALSO LOWEST POSITION OF THE BED, S/R UP X 2, ALL SAFETY PRECAUTION APPLIED. CALL LIGHT WITHIN REACH, WILL CONTINUE TO MONITOR.
[2021-09-23 08:00] VITALS: BP 127/67
[2021-09-23] MEDS: QUETIAPINE FUMARATE 25 MG TABLET GT SCH ×2 (08:24→16:58)
[2021-09-23] MEDS: ASCORBIC ACID 500 MG TABLET GT SCH (08:24)
[2021-09-23] MEDS: SERTRALINE HCL 25 MG TABLET GT SCH (08:24)
[2021-09-23] MEDS: FLUDROCORTISONE 0.1 MG TABLET GT SCH (08:24)
[2021-09-23] MEDS: HYDROCORTISONE SOD SUCCINATE 100 MG/2 ML VIAL IV SCH ×2 (08:24→16:57)
[2021-09-23] MEDS: ENOXAPARIN SODIUM 40 MG/0.4 ML DISP.SYRIN SQ SCH (08:26)
[2021-09-23] MEDS: PROSOURCE / PROSTAT (PYXIS) 30 ML UDC GT SCH ×2 (08:30→16:58)
[2021-09-23] MEDS: THERAHONEY GEL 1.5 OZ TUBE TP SCH (08:31)
[2021-09-23] MEDS: HYDROGEL DRESSING 90 GM TUBE TP SCH (08:31)
[2021-09-23] MEDS: DAKINS QUARTER STRENGTH (0.125%) 480 ML BOTTLE TOP SCH (08:31)
[2021-09-23 12:00] VITALS: BP 146/73
[2021-09-23] MEDS: VITAL AF 1.2 1,000 ML BOTTLE GT PRN (12:58)
[2021-09-23 16:00] VITALS: BP 114/67
--- NOTE | 2021-09-23 18:27 | NUR ---
RN CLOSE NOTE PATIENT IN BED, IN NO ACUTE DISTRESS OBSERVED. PATIENT IS ON TRACH, RESPIRATION EVEN AND UNLABORED ON VENTILATOR. SKIN IS WARM TO TOUCH KEEP CLEAN//DRY, INTACT IV SITE. PATIENT ON RECTAL TUBE: 50 ML AND BAUMAN CATH: 2000 ML OUT PUT. KEPT ELEVATED HOB FOR ENSURE AIRWAY AND ASPIRATION PRECAUTION. ALSO LOWEST POSITION OF THE BED FOR SAFETY. CALL LIGHT WITHIN REACH, WILL ENDORSE TO STATION CLEANING PORTER.
--- NOTE | 2021-09-23 19:20 | NUR ---
RN NOTE RECEIVED PATIENT,ON MECHANICAL VENT SETTING TRACH PORTEX #7 AC 16 TV 550 PEEP 5 FIO2:30% ALERT ORIENTED X1 NODS HEAD,BILATERAL UPPER EXTREMITIES CONTRACTED, BAUMAN CATH IN PLACE URINE DRAINING BY GRAVITY,RECTAL TUBE IN PLACE,ON G-TUBE FEEDING VITAL AF 1.2 60CC/HR CHECKED PLACEMENT IN PLACE NO RESIDUAL NOTED,IV SITE IS ON LEFT FEMORAL TLC INTACT PATENT NS WITH KCL IV RUNNING 75CC/HR.SAFETY MEASURE IMPLEMENT BED IN LOW POSITION AND LOCKED,HEAD OF THE BED ELEVATED,CONTINUE TO MONITOR.
[2021-09-23 20:00] VITALS: BP 120/78
[2021-09-23] MEDS: ACETAMINOPHEN 650 MG/20.3 ML UDC GT PRN (20:47)
--- NOTE | 2021-09-23 20:51 | NUR ---
RN NOTE ACETAMINOPHEN 650MG PRN GIVEN FOR TEMP 100.6 CONTINUE TO MONITOR.
[2021-09-24] VITALS: BP 118/77
--- NOTE | 2021-09-24 01:13 | NUR ---
RN NOTE TEMP IS 99.7 IMPROVING CONTINUE TO MONITOR
[2021-09-24] MEDS: IPRATROPIUM NEB FS 0.5 MG/2.5 ML AMPUL.NEB NEB SCH ×6 (03:36→23:37)
[2021-09-24 04:00] VITALS: BP 134/77
[2021-09-24] MEDS: MIDODRINE HCL (5MG) 5 MG TABLET GT SCH ×3 (04:11→21:49)
--- NOTE | 2021-09-24 06:56 | NUR ---
RN NOTE PATIENT REMAINS ON MECHANICAL VENT NO SOB NOT ACUTE DISTRESS NOTED ALL DUE MEDS GIVEN MD ORDERED KEPT CLEAN AND DRY ALL THE TIME,REPOSITIONED EVERY 2 HOURS,ALL NEEDS MET,HEAD OF THE BED ELEVATED ENDORSE NEXT COMING SHIFT FOR CONTINUATION OF CARE.
[2021-09-24 07:28] LABS: BASOPHILS % (AUTO) 0.3 % (0.0-2.0); EOSINOPHILS % (AUTO) 2.6 % (0.0-6.0); HEMATOCRIT 30 % (39-51); HEMOGLOBIN 9.7 g/dL (13.5-17.5); LYMPHOCYTES # (AUTO) 2.8 K/uL (0.8-4.8); LYMPHOCYTES % (AUTO) 28.8 % (20.0-44.0); MEAN CORPUSCULAR HGB CONC 32 g/dl (31.0-36.0); MEAN CORPUSCULAR VOLUME 87 fL (80-96); MONOCYTES # (AUTO) 0.8 K/uL (0.1-1.30); MONOCYTES % (AUTO) 7.9 % (2.0-12.0); NEUTROPHILS # (AUTO) 5.8 K/uL (1.8-8.9); NEUTROPHILS % (AUTO) 60.4 % (43.0-81.0); PLATELET COUNT (AUTO) 363 K/uL (150-450); RED BLOOD CELL COUNT(AUTO) 3.44 MIL/uL (4.5-6.0); WHITE BLOOD COUNT (AUTO) 9.6 K/uL (4.3-11.0)
[2021-09-24 07:42] LABS: CALCIUM, SERUM 8.9 mg/dL (8.5-10.1); CREATININE 0.4 mg/dL (0.6-1.3); MAGNESIUM 1.8 mg/dL (1.8-2.4); PHOSPHORUS 3.4 mg/dL (2.5-4.9)
[2021-09-24 08:00] VITALS: BP 146/76
[2021-09-24] MEDS: SERTRALINE HCL 25 MG TABLET GT SCH (09:53)
[2021-09-24] MEDS: QUETIAPINE FUMARATE 25 MG TABLET GT SCH ×2 (09:53→17:08)
[2021-09-24] MEDS: HYDROCORTISONE SOD SUCCINATE 100 MG/2 ML VIAL IV SCH ×2 (09:53→12:00)
[2021-09-24] MEDS: ASCORBIC ACID 500 MG TABLET GT SCH (09:54)
[2021-09-24] MEDS: FLUDROCORTISONE 0.1 MG TABLET GT SCH (09:54)
[2021-09-24] MEDS: THERAHONEY GEL 1.5 OZ TUBE TP SCH (09:58)
[2021-09-24] MEDS: DAKINS QUARTER STRENGTH (0.125%) 480 ML BOTTLE TOP SCH (09:58)
[2021-09-24] MEDS: PROSOURCE / PROSTAT (PYXIS) 30 ML UDC GT SCH ×2 (09:58→17:08)
[2021-09-24] MEDS: HYDROGEL DRESSING 90 GM TUBE TP SCH (09:58)
[2021-09-24] MEDS: ENOXAPARIN SODIUM 40 MG/0.4 ML DISP.SYRIN SQ SCH (10:02)
[2021-09-24 12:00] VITALS: BP 117/57
[2021-09-24] MEDS: NS 0.9% IV SCH ×2 (12:38→22:58)
[2021-09-24] MEDS: POTASSIUM CHLORIDE IV SCH ×2 (12:38→22:58)
[2021-09-24 16:00] VITALS: BP 144/61
[2021-09-24] MEDS: DOXYCYCLINE HYCLATE (100 MG) 100 MG TABLET PO SCH ×2 (17:08→21:49)
[2021-09-24 20:00] VITALS: BP 107/52
[2021-09-25] VITALS: BP 107/58
[2021-09-25] MEDS: IPRATROPIUM NEB FS 0.5 MG/2.5 ML AMPUL.NEB NEB SCH ×6 (03:25→23:35)
[2021-09-25 04:00] VITALS: BP 109/64
[2021-09-25] MEDS: MIDODRINE HCL (5MG) 5 MG TABLET GT SCH ×3 (06:14→21:19)
[2021-09-25 06:55] LABS: BASOPHILS % (AUTO) 0.2 % (0.0-2.0); EOSINOPHILS % (AUTO) 0.1 % (0.0-6.0); HEMATOCRIT 29 % (39-51); HEMOGLOBIN 8.8 g/dL (13.5-17.5); LYMPHOCYTES % (AUTO) 24.7 % (20.0-44.0); MEAN CORPUSCULAR HGB CONC 31 g/dl (31.0-36.0); MEAN CORPUSCULAR VOLUME 99 fL (80-96); MONOCYTES # (AUTO) 1.6 K/uL (0.1-1.30); MONOCYTES % (AUTO) 10.1 % (2.0-12.0); NEUTROPHILS # (AUTO) 10.4 K/uL (1.8-8.9); NEUTROPHILS % (AUTO) 64.9 % (43.0-81.0); PLATELET COUNT (AUTO) 274 K/uL (150-450); RED BLOOD CELL COUNT(AUTO) 2.89 MIL/uL (4.5-6.0)
[2021-09-25 07:10] LABS: CREATININE 1.3 mg/dL (0.6-1.3); MAGNESIUM 1.9 mg/dL (1.8-2.4); PHOSPHORUS 3.1 mg/dL (2.5-4.9); POTASSIUM 4.2 mmol/L (3.5-5.1)
--- NOTE | 2021-09-25 07:11 | NUR ---
RN notes Resting comfortably in bed with no distress noted. Breathing even and unlabored. Vent setting well tolerate. Level of consciousness, alert but unable to verbally communicate needs. Vital signs wnl. Wound care done. Suctioned moderate amount of thin yellowish secretion. Kept clean and dry. Will endorse to next shift for continuity of care.
[2021-09-25 08:00] VITALS: BP 124/52
[2021-09-25 08:15] LABS: WHITE BLOOD COUNT (AUTO) 16.1 K/uL (4.3-11.0)
[2021-09-25 08:34] LABS: BASOPHILS % (AUTO) 0.2 % (0.0-2.0); EOSINOPHILS % (AUTO) 4.6 % (0.0-6.0); HEMATOCRIT 30 % (39-51); HEMOGLOBIN 9.5 g/dL (13.5-17.5); LYMPHOCYTES % (AUTO) 15.9 % (20.0-44.0); MEAN CORPUSCULAR HGB CONC 32 g/dl (31.0-36.0); MEAN CORPUSCULAR VOLUME 88 fL (80-96); MONOCYTES # (AUTO) 0.7 K/uL (0.1-1.30); MONOCYTES % (AUTO) 5.9 % (2.0-12.0); NEUTROPHILS # (AUTO) 9.1 K/uL (1.8-8.9); NEUTROPHILS % (AUTO) 73.4 % (43.0-81.0); PLATELET COUNT (AUTO) 389 K/uL (150-450); RED BLOOD CELL COUNT(AUTO) 3.39 MIL/uL (4.5-6.0); WHITE BLOOD COUNT (AUTO) 12.4 K/uL (4.3-11.0)
[2021-09-25 08:49] LABS: CREATININE 0.3 mg/dL (0.6-1.3); MAGNESIUM 2.3 mg/dL (1.8-2.4); POTASSIUM 4.5 mmol/L (3.5-5.1)
[2021-09-25] MEDS: QUETIAPINE FUMARATE 25 MG TABLET GT SCH ×2 (09:38→17:02)
[2021-09-25] MEDS: DOXYCYCLINE HYCLATE (100 MG) 100 MG TABLET PO SCH ×2 (09:38→21:18)
[2021-09-25] MEDS: HYDROCORTISONE SOD SUCCINATE 100 MG/2 ML VIAL IV SCH (09:38)
[2021-09-25] MEDS: FLUDROCORTISONE 0.1 MG TABLET GT SCH (09:38)
[2021-09-25] MEDS: ASCORBIC ACID 500 MG TABLET GT SCH (09:38)
[2021-09-25] MEDS: SERTRALINE HCL 25 MG TABLET GT SCH (09:38)
[2021-09-25] MEDS: ENOXAPARIN SODIUM 40 MG/0.4 ML DISP.SYRIN SQ SCH (09:39)
[2021-09-25] MEDS: DAKINS QUARTER STRENGTH (0.125%) 480 ML BOTTLE TOP SCH (09:40)
[2021-09-25] MEDS: THERAHONEY GEL 1.5 OZ TUBE TP SCH (09:41)
[2021-09-25] MEDS: PROSOURCE / PROSTAT (PYXIS) 30 ML UDC GT SCH ×2 (09:41→17:02)
[2021-09-25] MEDS: HYDROGEL DRESSING 90 GM TUBE TP SCH (09:41)
--- NOTE | 2021-09-25 12:20 | NUR ---
POTASIUM CHLORIDE 60 MEQ IN IV NOT ADMINISTERED DUE TO POTASSIUM OF 4.5. WILL MONITOR.
[2021-09-25 12:30] VITALS: BP 150/60
[2021-09-25] MEDS: IV NS 0.9% 1,000 ML IV PRN (15:50)
[2021-09-25 16:21] VITALS: BP 149/69
--- NOTE | 2021-09-25 19:22 | NUR ---
TELE/RN CLOSING NOTES PATIENT REMAINS ON MECHANICAL VENT NO SOB NOT ACUTE DISTRESS NOTED ALL DUE MEDS GIVEN MD ORDERED KEPT CLEAN AND DRY ALL THE TIME,REPOSITIONED EVERY 2 HOURS,ALL NEEDS MET,HEAD OF THE BED ELEVATED ENDORSE NEXT COMING SHIFT FOR CONTINUATION OF CARE.
[2021-09-25 20:00] VITALS: BP 122/51
[2021-09-26] VITALS: BP 109/72
[2021-09-26] MEDS: IPRATROPIUM NEB FS 0.5 MG/2.5 ML AMPUL.NEB NEB SCH ×6 (03:44→23:14)
[2021-09-26 04:00] VITALS: BP 102/48
--- NOTE | 2021-09-26 04:11 | NUR ---
RN notes Alert and oriented, nods or shakes head in the Altered level of consciousness, non-verbal. No distress noted. On vent, setting well tolerated. No physical manifestation of pain or discomfort. Vital signs wnl. No significant change of condition. Kept clean and dry. Will endorse to next shift for continuity of care
[2021-09-26] MEDS: MIDODRINE HCL (5MG) 5 MG TABLET GT SCH ×3 (04:58→22:11)
--- NOTE | 2021-09-26 07:30 | NUR ---
MANAGER CLINICAL SERVICES NOTES PT IN BED, AWAKE, NO SIGN OF PAIN OR DISTRESS, NO SOB, AFEBRILE, GT FEEDING INFUSING WELL, KEPT WARM AND COMFORTABLE.
[2021-09-26 08:00] VITALS: BP 147/67
[2021-09-26 08:11] LABS: BASOPHILS % (AUTO) 0.2 % (0.0-2.0); EOSINOPHILS % (AUTO) 4.5 % (0.0-6.0); HEMATOCRIT 26 % (39-51); HEMOGLOBIN 8.5 g/dL (13.5-17.5); LYMPHOCYTES # (AUTO) 0.9 K/uL (0.8-4.8); LYMPHOCYTES % (AUTO) 10.6 % (20.0-44.0); MEAN CORPUSCULAR HGB CONC 32 g/dl (31.0-36.0); MEAN CORPUSCULAR VOLUME 87 fL (80-96); MONOCYTES # (AUTO) 0.4 K/uL (0.1-1.30); MONOCYTES % (AUTO) 5.5 % (2.0-12.0); NEUTROPHILS # (AUTO) 6.5 K/uL (1.8-8.9); NEUTROPHILS % (AUTO) 79.2 % (43.0-81.0); PLATELET COUNT (AUTO) 319 K/uL (150-450); RED BLOOD CELL COUNT(AUTO) 3.03 MIL/uL (4.5-6.0); WHITE BLOOD COUNT (AUTO) 8.2 K/uL (4.3-11.0)
[2021-09-26] MEDS: FLUDROCORTISONE 0.1 MG TABLET GT SCH (08:24)
[2021-09-26] MEDS: ASCORBIC ACID 500 MG TABLET GT SCH (08:24)
[2021-09-26] MEDS: QUETIAPINE FUMARATE 25 MG TABLET GT SCH ×2 (08:25→17:11)
[2021-09-26] MEDS: SERTRALINE HCL 25 MG TABLET GT SCH (08:25)
[2021-09-26] MEDS: HYDROCORTISONE SOD SUCCINATE 100 MG/2 ML VIAL IV SCH (08:27)
[2021-09-26] MEDS: DOXYCYCLINE HYCLATE (100 MG) 100 MG TABLET PO SCH ×2 (08:27→21:50)
[2021-09-26] MEDS: PROSOURCE / PROSTAT (PYXIS) 30 ML UDC GT SCH ×2 (08:28→17:11)
[2021-09-26] MEDS: ENOXAPARIN SODIUM 40 MG/0.4 ML DISP.SYRIN SQ SCH (08:31)
[2021-09-26] MEDS: THERAHONEY GEL 1.5 OZ TUBE TP SCH (08:36)
[2021-09-26] MEDS: HYDROGEL DRESSING 90 GM TUBE TP SCH (08:36)
[2021-09-26 09:04] LABS: CALCIUM, SERUM 8.8 mg/dL (8.5-10.1); CREATININE 0.2 mg/dL (0.6-1.3); MAGNESIUM 1.9 mg/dL (1.8-2.4); PHOSPHORUS 2.7 mg/dL (2.5-4.9); POTASSIUM 3.5 mmol/L (3.5-5.1)
[2021-09-26 12:00] VITALS: BP 108/50
[2021-09-26] MEDS: DAKINS QUARTER STRENGTH (0.125%) 480 ML BOTTLE TOP SCH (12:16)
[2021-09-26 16:00] VITALS: BP 134/73
--- NOTE | 2021-09-26 19:30 | NUR ---
MOUNTER CLARINETS NOTES PT IN BED, RESTING, NO COMPLAINT OF PAIN, NOT IN DISTRESS, PM MEDS GIVEN ORDERED, PM CARE RENDERED, ALL NEEDS ATTENDED.
--- NOTE | 2021-09-26 19:50 | NUR ---
CYBER WORKFORCE DEVELOPER AND MANAGER OPENING NOTE PATIENT AWAKE IN BED WITH FAMILY AT BEDSIDE, PATIENT NON-VERBAL. PATIENT ON MECHANICAL VENT, TOLERATING WELL, NO S/S OF DISTRESS OR SOB NOTED, BREATHING EVEN AND UNLABORED, SPO2: 98%. PATIENT ON EXTERNAL WILLOW MACHINE OPERATOR, V-PACING, HR: 72. G-TUBE INTACT AND RUNING VITAL 1.2 @ 60 ML/HR, TOLERATING WELL, NO RESIDUAL NOTED. LEFT FEMORAL PICC LINE INTACT AND INFUSING NS @ 75 ML/HR. RECTAL TUBE INTACT. SAFETY MEASURES IN PLACE: CALL LIGHT WITHIN REACH, SIDE RAILS UP X 3, BED LOCKED IN LOWEST POSITION, HOB ELEVATED, BED ALARM ON. WILL CONTINUE TO MONITOR PATIENT
[2021-09-26 20:00] VITALS: BP 128/75
[2021-09-26] MEDS: IV NS 0.9% 1,000 ML IV PRN (20:21)
[2021-09-27] VITALS: BP 142/81
[2021-09-27] MEDS: IPRATROPIUM NEB FS 0.5 MG/2.5 ML AMPUL.NEB NEB SCH ×5 (03:36→20:42)
[2021-09-27 04:30] VITALS: BP 127/77
[2021-09-27] MEDS: MIDODRINE HCL (5MG) 5 MG TABLET GT SCH ×3 (04:41→20:49)
[2021-09-27] MEDS: VITAL AF 1.2 1,000 ML BOTTLE GT PRN (04:41)
--- NOTE | 2021-09-27 07:10 | NUR ---
FIO2 DECREASED FROM 40% TO 30% DUE TO 98% SPO2. Addendum: 09/27/21 at 0711 by EDWIGE MYERS RT Amended: Links added.
--- NOTE | 2021-09-27 07:14 | NUR ---
HOGSHEAD FILLER CLOSING NOTE PATIENT IN BED WITH EYES CLOSED, PATIENT NON-VERBAL. PATIENT ON MECHANICAL VENT, TOLERATING WELL, NO S/S OF DISTRESS OR SOB NOTED, BREATHING EVEN AND UNLABORED. PATIENT ON EXTERNAL FRINGE MAKER, SINUS RHYTHM, HR: 78. G-TUBE INTACT AND RUNNING VITAL 1.2 @ 60 ML/HR, TOLERATING WELL, NO RESIDUAL NOTED THIS SHIFT. LEFT FEMORAL PICC LINE INTACT AND INFUSING NS @ 75 ML/HR. RECTAL TUBE INTACT. BAUMAN CATH INTACT AND DRAINING CLEAR YELLOW URINE. MEDICATIONS GIVEN ORDERED, PT NEEDS MET THROUGHOUT SHIFT. BUTTOCK WOUND CARE PERFORMED. SAFETY MEASURES IN PLACE: CALL LIGHT WITHIN REACH, SIDE RAILS UP X 3, BED LOCKED IN LOWEST POSITION, HOB ELEVATED, BED ALARM ON. WILL ENDORSE TO DAY SHIFT NURSE FOR CONTINUITY OF CARE
--- NOTE | 2021-09-27 07:39 | NUR ---
RN OPENING NOTES Patient seen comfortably lying in bed, no shortness of breath, no apparent distress noted, breathing even and unlabored, no grimacing. Call light left within reach, safety precautions in place, brakes locked, side rails up X 2, will monitor closely for any changes.
[2021-09-27 08:00] VITALS: BP 97/47
[2021-09-27 08:07] LABS: BASOPHILS % (AUTO) 0.4 % (0.0-2.0); EOSINOPHILS % (AUTO) 5.1 % (0.0-6.0); HEMATOCRIT 25 % (39-51); HEMOGLOBIN 8.2 g/dL (13.5-17.5); LYMPHOCYTES % (AUTO) 13.8 % (20.0-44.0); MEAN CORPUSCULAR HGB CONC 32 g/dl (31.0-36.0); MEAN CORPUSCULAR VOLUME 87 fL (80-96); MONOCYTES # (AUTO) 0.5 K/uL (0.1-1.30); MONOCYTES % (AUTO) 7.3 % (2.0-12.0); NEUTROPHILS # (AUTO) 5.5 K/uL (1.8-8.9); NEUTROPHILS % (AUTO) 73.4 % (43.0-81.0); PLATELET COUNT (AUTO) 291 K/uL (150-450); RED BLOOD CELL COUNT(AUTO) 2.92 MIL/uL (4.5-6.0); WHITE BLOOD COUNT (AUTO) 7.5 K/uL (4.3-11.0)
[2021-09-27 08:59] LABS: CALCIUM, SERUM 8.9 mg/dL (8.5-10.1); CREATININE 0.3 mg/dL (0.6-1.3); MAGNESIUM 1.9 mg/dL (1.8-2.4); PHOSPHORUS 2.9 mg/dL (2.5-4.9)
[2021-09-27] MEDS: SERTRALINE HCL 25 MG TABLET GT SCH (09:49)
[2021-09-27] MEDS: IV NS 0.9% 1,000 ML IV PRN (09:49)
[2021-09-27] MEDS: QUETIAPINE FUMARATE 25 MG TABLET GT SCH ×2 (09:50→16:47)
[2021-09-27] MEDS: DOXYCYCLINE HYCLATE (100 MG) 100 MG TABLET PO SCH ×2 (09:50→20:48)
[2021-09-27] MEDS: FLUDROCORTISONE 0.1 MG TABLET GT SCH (09:50)
[2021-09-27] MEDS: ASCORBIC ACID 500 MG TABLET GT SCH (09:50)
[2021-09-27] MEDS: HYDROCORTISONE SOD SUCCINATE 100 MG/2 ML VIAL IV SCH (09:50)
[2021-09-27] MEDS: PROSOURCE / PROSTAT (PYXIS) 30 ML UDC GT SCH ×2 (09:52→16:47)
[2021-09-27] MEDS: ENOXAPARIN SODIUM 40 MG/0.4 ML DISP.SYRIN SQ SCH (09:53)
[2021-09-27] MEDS: HYDROGEL DRESSING 90 GM TUBE TP SCH (10:12)
[2021-09-27] MEDS: THERAHONEY GEL 1.5 OZ TUBE TP SCH (10:12)
[2021-09-27 12:00] VITALS: BP 112/68
[2021-09-27] MEDS: POTASSIUM CHLORIDE 20 MEQ POWDER PACKET GT SCH ×4 (12:48→14:32)
[2021-09-27] MEDS: DAKINS QUARTER STRENGTH (0.125%) 480 ML BOTTLE TOP SCH (13:00)
[2021-09-27 16:00] VITALS: BP 132/85
--- NOTE | 2021-09-27 19:30 | NUR ---
STOCKROOM WORKER OPENING NOTES RECEIVED PATIENT IN BED RESTING, EYES CLOSED, EASILY AROUSABLE. PT ON MECHANICAL VENT: PORTEX 7 AC 16 TV 550 FIO2 30% AND PEEP 5. BREATHING EVEN AND UNLABORED. NO SOB OR S/S OF RESPIRATORY DISTRESS. ON EXTERNAL ENTEROSTOMAL THERAPY NURSE READING SR @ 86 BPM. IV ACCESS L FEMORAL PICC, INTACT AND PATENT, RUNNING NS @ 75 ML/HR. BAUMAN CATHETER IN PLACE DRAINING CLEAR YELLOW URINE. RECTAL TUBE IN PLACE. GTUBE IN PLACE RUNNING VITAL 1.2 @ 60 ML/HR. SAFETY PRECAUTIONS IN PLACE. BED IN LOWEST LOCKED POSITION, HOB ELEVATED, SIDE RAILS UP X3, AND CALL LIGHT AND TABLE WITHIN REACH. ALL NEEDS MET AT THIS TIME.
--- NOTE | 2021-09-27 19:45 | NUR ---
RN CLOSING NOTES Patient lying in bed, respirations even and unlabored, no shortness of breath, no grimacing, no apparent distress noted, remained afebrile. Gastric tube remained patent, intact and in place during shift, placement verified by auscultation and aspiration of gastric residuals. All due medications given via gtube per MD order, tolerating well. Patient on gastric tube feeding (Vital AF 1.2 at 60 ml/hr), tolerating well, no nausea, no vomiting, no episode of loose stool, abdominal bowel sound present in all quadrants, no grimacing when abdomen palpated. Patient has orders for IV fluids for hydration, PICC line on left femoral patent, intact, flushing well, covered with dry dressings, no swelling, no redness, no c/o pain or discomfort at site. Wound care rendered as per MD order. Demarco catheter draining clear yellowish urine free from any sediments, no hematuria, and no unusual odor noted in urine, denies any bladder pain or discomfort, bladder non distended during shift. All needs anticipated, kept clean and dry, aspiration precautions observed at all times, kept head of bed elevated, safety precautions in place, frequent visual checks rendered, frequent turning and repositioning done, side rails up X 2, brakes locked, call light left within reach, will endorse to next shift for continuity of care.
[2021-09-27 20:00] VITALS: BP 110/55
[2021-09-28] VITALS: BP 113/55
[2021-09-28] MEDS: IPRATROPIUM NEB FS 0.5 MG/2.5 ML AMPUL.NEB NEB SCH ×7 (00:02→23:28)
[2021-09-28] MEDS: MIDODRINE HCL (5MG) 5 MG TABLET GT SCH ×3 (03:44→20:19)
[2021-09-28] MEDS: VITAL AF 1.2 1,000 ML BOTTLE GT PRN (03:48)
[2021-09-28 04:00] VITALS: BP 124/68
--- NOTE | 2021-09-28 06:40 | NUR ---
WATER MANAGER CLOSING NOTES PATIENT IN BED RESTING, EYES CLOSED, EASILY AROUSABLE. PT ON MECHANICAL VENT: PORTEX 7 AC 16 TV 550 FIO2 30% AND PEEP 5. BREATHING EVEN AND UNLABORED. NO SOB OR S/S OF RESPIRATORY DISTRESS. ON EXTERNAL SHIP'S PILOT READING SR @ 90 BPM. IV ACCESS L FEMORAL PICC, INTACT AND PATENT, RUNNING NS @ 75 ML/HR. BAUMAN CATHETER IN PLACE DRAINING CLEAR YELLOW URINE. RECTAL TUBE IN PLACE. GTUBE IN PLACE RUNNING VITAL 1.2 @ 60 ML/HR. ALL DUE MEDS GIVEN ORDERED. WOUND CARE DONE, ALL DRESSINGS C/D/I. SAFETY PRECAUTIONS IN PLACE AT ALL TIMES. BED IN LOWEST LOCKED POSITION, HOB ELEVATED, SIDE RAILS UP X3, AND CALL LIGHT AND TABLE WITHIN REACH. ALL NEEDS MET AT THIS TIME. WILL ENDORSE TO ONCOMING NURSE FOR EASTON.
[2021-09-28 06:48] LABS: BASOPHILS % (AUTO) 0.4 % (0.0-2.0); HEMATOCRIT 25 % (39-51); HEMOGLOBIN 8.2 g/dL (13.5-17.5); LYMPHOCYTES # (AUTO) 1.2 K/uL (0.8-4.8); LYMPHOCYTES % (AUTO) 18.7 % (20.0-44.0); MEAN CORPUSCULAR HGB CONC 33 g/dl (31.0-36.0); MEAN CORPUSCULAR VOLUME 86 fL (80-96); MONOCYTES # (AUTO) 0.6 K/uL (0.1-1.30); MONOCYTES % (AUTO) 8.9 % (2.0-12.0); NEUTROPHILS # (AUTO) 4.3 K/uL (1.8-8.9); PLATELET COUNT (AUTO) 259 K/uL (150-450); RED BLOOD CELL COUNT(AUTO) 2.89 MIL/uL (4.5-6.0); WHITE BLOOD COUNT (AUTO) 6.5 K/uL (4.3-11.0)
[2021-09-28 06:58] LABS: CREATININE 0.3 mg/dL (0.6-1.3); MAGNESIUM 1.8 mg/dL (1.8-2.4); PHOSPHORUS 2.8 mg/dL (2.5-4.9); POTASSIUM 3.2 mmol/L (3.5-5.1)
[2021-09-28 07:06] LABS: CALCIUM, SERUM 8.6 mg/dL (8.5-10.1)
[2021-09-28 08:00] VITALS: BP 139/73
--- NOTE | 2021-09-28 08:07 | NUR ---
RN OPENING NOTES RECEIVED PATIENT FROM OUTGOING NURSE FOR CONTINUITY OF CARE. PATIENT IN BED, AO X 1, NON-VERBAL. NO S/SX OF ACUTE DISTRESS AT THIS TIME. PATIENT IS ON VENT. IV SITE AT FEMORAL PICC LINE NS @ 75ML/HR, PATENT AND FLUSHING WELL, NO S/S OF INFECTION OR INFILTRATION. SAFETY MEASURES IMPLEMENTED. PATIENT BED ALARM IS ON. HEAD OF BED ELEVATED. BED IS LOCKED, IN LOWEST POSITION AND SIDE RAILS UP. CALL LIGHT WITHIN REACH OF THE PATIENT. WILL CONTINUE TO MONITOR AND REASSESS FOR ANY CHANGES.
[2021-09-28] MEDS: ASCORBIC ACID 500 MG TABLET GT SCH (09:13)
[2021-09-28] MEDS: QUETIAPINE FUMARATE 25 MG TABLET GT SCH ×2 (09:14→17:01)
[2021-09-28] MEDS: SERTRALINE HCL 25 MG TABLET GT SCH (09:14)
[2021-09-28] MEDS: DOXYCYCLINE HYCLATE (100 MG) 100 MG TABLET PO SCH ×2 (09:14→20:19)
[2021-09-28] MEDS: FLUDROCORTISONE 0.1 MG TABLET GT SCH (09:15)
[2021-09-28] MEDS: ENOXAPARIN SODIUM 40 MG/0.4 ML DISP.SYRIN SQ SCH (09:17)
[2021-09-28] MEDS: THERAHONEY GEL 1.5 OZ TUBE TP SCH (09:20)
[2021-09-28] MEDS: HYDROGEL DRESSING 90 GM TUBE TP SCH (09:21)
[2021-09-28] MEDS: DAKINS QUARTER STRENGTH (0.125%) 480 ML BOTTLE TOP SCH (09:23)
[2021-09-28] MEDS: POTASSIUM CHLORIDE 20 MEQ POWDER PACKET GT SCH ×2 (10:29→11:44)
[2021-09-28] MEDS: PROSOURCE / PROSTAT (PYXIS) 30 ML UDC GT SCH ×2 (10:30→17:02)
[2021-09-28 12:00] VITALS: BP 98/57
[2021-09-28] MEDS ORDERED: DOXY100T2 PO (14:55)
[2021-09-28] MEDS: IV NS 0.9% 1,000 ML IV PRN ×2 (15:43)
[2021-09-28 16:00] VITALS: BP 104/55
[2021-09-28 20:00] VITALS: BP 84/48
[2021-09-28] MEDS ORDERED: IV NS 0.9% 500 ML IV ONE (20:00)
--- NOTE | 2021-09-28 20:06 | NUR ---
@ report given to [facility] nurse for transferring patient but when the Ambulance came in they refused to transfer the patient because the blood pressure was 84/44 and heart rate was 80, and checked several time and then they refused to transfer. I messaged Dr. Armijo @ [phone].
--- NOTE | 2021-09-28 20:14 | NUR ---
RN CLOSING NOTES Patient lying in bed, respirations even and unlabored, no shortness of breath, no grimacing, no apparent distress noted, remained afebrile. Gastric tube remained patent, intact and in place during shift, placement verified by auscultation and aspiration of gastric residuals. All due medications given via g tube per MD order, tolerating well. Patient on gastric tube feeding (Vital AF 1.2 at 60 ml/hr), tolerating well, no nausea, no vomiting, no episode of loose stool, abdominal bowel sound present in all quadrants, no grimacing when abdomen palpated. Patient has orders for IV fluids for hydration, PICC line on left femoral patent, intact, flushing well, covered with dry dressings, no swelling, no redness, no c/o pain or discomfort at site. Wound care rendered as per MD order. Demarco catheter draining clear yellowish urine free from any sediments, no hematuria, and no unusual odor noted in urine, denies any bladder pain or discomfort, bladder non distended during shift. All needs anticipated, kept clean and dry, aspiration precautions observed at all times, kept head of bed elevated, safety precautions in place, frequent visual checks rendered, frequent turning and repositioning done, side rails up X 2, brakes locked, call light left within reach, will endorse to next shift for continuity of care.
--- NOTE | 2021-09-28 20:25 | NUR ---
RN NOTE PATIENT IN BED AWAKE AND RESPONSIVE. ON TRACH TO VENT, TOLERATING SETTINGS WELL. NO SIGNS OF PAIN OR DISCOMFORT. RECEIVED REPORT, PATIENT WAS FOR DISCHARGE TO [place] HOWEVER HAD LOW BLOOD PRESSURE. RECHECKED BLOOD PRESSURE NOTED 75/34. VIRI TYSON AWARE WITH NEW ORDER FOR NS 500 BOLUS. ALSO PATIENT HAS SCHEDULED MIDODRINE. WILL MONITOR BP THROUGH OUT SHIFT. BAUMAN CATH AND RECTAL TUBE IN PLACE DRAINING VIA GRAVITY. G-TUBE IN PLACE WITH VITAL 1.2 @ 60ML/HR, NO RESIDUAL NOTED. IV ACCESS ON LEFT FEMORAL WITH NS @ 75ML/HR, NO S/S OF INFILTRATION. BED LOCKED AND IN LOWEST POSITION. CALL LIGHT WITHIN REACH. WILL CONTINUE TO MONITOR.
[2021-09-29] VITALS: BP 86/63
[2021-09-29] MEDS: MIDODRINE HCL (5MG) 5 MG TABLET GT SCH ×2 (03:24→12:08)
[2021-09-29 04:00] VITALS: BP 124/81
[2021-09-29] MEDS: IPRATROPIUM NEB FS 0.5 MG/2.5 ML AMPUL.NEB NEB SCH ×4 (04:11→15:41)
[2021-09-29] MEDS: IV NS 0.9% 1,000 ML IV PRN (05:51)
[2021-09-29] MEDS: VITAL AF 1.2 1,000 ML BOTTLE GT PRN (06:21)
--- NOTE | 2021-09-29 07:00 | NUR ---
RN NOTES RECEIVED PT ON BED, ALERT / VENT /TRACH DEPENDENT, NON-VERBAL.TOLERATING VENT SETTING WELL, IV SITE AT FEMORAL PICC LINE NS @ 75ML/HR, PATENT AND FLUSHING WELL, NO S/S OF INFECTION OR INFILTRATION. SAFETY MEASURES IMPLEMENTED. PATIENT BED ALARM IS ON. HEAD OF BED ELEVATED. BED IS LOCKED, IN LOWEST POSITION AND SIDE RAILS UPx3 CALL LIGHT WITHIN REACH OF THE PATIENT. WILL CONTINUE TO MONITOR
[2021-09-29 07:34] LABS: CREATININE 0.3 mg/dL (0.6-1.3); MAGNESIUM 1.9 mg/dL (1.8-2.4); PHOSPHORUS 3.1 mg/dL (2.5-4.9); POTASSIUM 3.4 mmol/L (3.5-5.1)
[2021-09-29 07:40] LABS: BASOPHILS % (AUTO) 0.4 % (0.0-2.0); EOSINOPHILS % (AUTO) 5.8 % (0.0-6.0); HEMATOCRIT 27 % (39-51); HEMOGLOBIN 8.9 g/dL (13.5-17.5); LYMPHOCYTES # (AUTO) 1.6 K/uL (0.8-4.8); LYMPHOCYTES % (AUTO) 22.4 % (20.0-44.0); MEAN CORPUSCULAR HGB CONC 33 g/dl (31.0-36.0); MEAN CORPUSCULAR VOLUME 86 fL (80-96); MONOCYTES # (AUTO) 0.6 K/uL (0.1-1.30); NEUTROPHILS # (AUTO) 4.5 K/uL (1.8-8.9); NEUTROPHILS % (AUTO) 63.4 % (43.0-81.0); PLATELET COUNT (AUTO) 292 K/uL (150-450); RED BLOOD CELL COUNT(AUTO) 3.14 MIL/uL (4.5-6.0); WHITE BLOOD COUNT (AUTO) 7.1 K/uL (4.3-11.0)
[2021-09-29 08:00] VITALS: BP 102/87
--- NOTE | 2021-09-29 08:12 | NUR ---
RN NOTE PATIENT IN BED RESTING. ON TRACH TO [facility] VENT, TOLERATING SETTINGS WELL. TURNED AND REPOSITIONED. KEPT CLEAN AND DRY. BP @ 0400 124/81. BED LOCKED AND IN LOWEST POSITION. CALL LIGHT WITHIN REACH. ENDORSED TO AM SHIFT.
[2021-09-29] MEDS: ASCORBIC ACID 500 MG TABLET GT SCH (08:52)
[2021-09-29] MEDS: ENOXAPARIN SODIUM 40 MG/0.4 ML DISP.SYRIN SQ SCH (08:52)
[2021-09-29] MEDS: SERTRALINE HCL 25 MG TABLET GT SCH (08:53)
[2021-09-29] MEDS: QUETIAPINE FUMARATE 25 MG TABLET GT SCH ×2 (08:53→16:20)
[2021-09-29] MEDS: DOXYCYCLINE HYCLATE (100 MG) 100 MG TABLET PO SCH (08:53)
[2021-09-29] MEDS: HYDROGEL DRESSING 90 GM TUBE TP SCH (08:54)
[2021-09-29] MEDS: DAKINS QUARTER STRENGTH (0.125%) 480 ML BOTTLE TOP SCH (08:54)
[2021-09-29] MEDS: THERAHONEY GEL 1.5 OZ TUBE TP SCH (08:54)
[2021-09-29] MEDS: PROSOURCE / PROSTAT (PYXIS) 30 ML UDC GT SCH ×2 (08:55→16:21)
[2021-09-29] MEDS ORDERED: POTASSIUM CHLORIDE 20 MEQ POWDER PACKET GT SCH (11:00)
[2021-09-29 12:00] VITALS: BP 130/62
--- NOTE | 2021-09-29 15:43 | NUR ---
RN NOTES REPORT GIVEN TO SOTO MONGE AT [facility] FOR CONTINUITY OF CARE .
[2021-09-29 16:00] VITALS: BP 149/79
--- NOTE | 2021-09-29 18:35 | NUR ---
RN NOTES FLEXI SEAL , AND LEFT FEMORAL TLC LINE D/AMY PER MD ORDER . REPORT GIVEN TO EMT PERSONNEL , PT DISCHARGED AND LEFT THE FLOOR TO SNF IN STABLE CONDITION WITH ALL HIS BELONGINGS .
== END 2021-09-29 19:04 | DRG 710 ==
LOC: ER 13:15 → EDBD 13:15 → ICU 17:49 → TELE-TD 09-21 17:49 → TELE1 09-23 15:25
PROVIDERS: ADMIT Internal Medicine; ATTEND Student in an Organized Health Care Education/Training Program
PROC: 5A1955Z Respiratory Ventilation, Greater than 96 Consecutive Hours (ICD-10-PCS; principal; 2021-09-07)
PROC: 06HN33Z Insertion of Infusion Device into Left Femoral Vein, Percutaneous Approach (ICD-10-PCS; 2021-09-07)
PROC: 0KB90ZZ Excision of Right Lower Arm and Wrist Muscle, Open Approach (ICD-10-PCS; 2021-09-08)
PROC: 0KBN0ZZ Excision of Right Hip Muscle, Open Approach (ICD-10-PCS; 2021-09-08)
PROC: 0KBP0ZZ Excision of Left Hip Muscle, Open Approach (ICD-10-PCS; 2021-09-08)
PROC: 30233N1 Transfusion of Nonautologous Red Blood Cells into Peripheral Vein, Percutaneous Approach (ICD-10-PCS; 2021-09-13)
PROC: 0KBP0ZZ Excision of Left Hip Muscle, Open Approach (ICD-10-PCS; 2021-09-15)
PROC: 0KBN0ZZ Excision of Right Hip Muscle, Open Approach (ICD-10-PCS; 2021-09-15)
PROC: 0KB90ZZ Excision of Right Lower Arm and Wrist Muscle, Open Approach (ICD-10-PCS; 2021-09-15)
PROC: 0KBP0ZZ Excision of Left Hip Muscle, Open Approach (ICD-10-PCS; 2021-09-23)
PROC: 0KBN0ZZ Excision of Right Hip Muscle, Open Approach (ICD-10-PCS; 2021-09-23)
PROC: 0KB90ZZ Excision of Right Lower Arm and Wrist Muscle, Open Approach (ICD-10-PCS; 2021-09-23)
DX: A41.9 Sepsis, unspecified organism (principal); J96.21 Acute and chronic respiratory failure with hypoxia; R65.21 Severe sepsis with septic shock; J69.0 Pneumonitis due to inhalation of food and vomit; G93.41 Metabolic encephalopathy; L89.154 Pressure ulcer of sacral region, stage 4; E87.2 Acidosis; G93.1 Anoxic brain damage, not elsewhere classified; L89.310 Pressure ulcer of right buttock, unstageable; L89.324 Pressure ulcer of left buttock, stage 4; I42.9 Cardiomyopathy, unspecified; E87.1 Hypo-osmolality and hyponatremia; Z93.0 Tracheostomy status; Z99.11 Dependence on respirator [ventilator] status; E86.0 Dehydration; E88.09 Other disorders of plasma-protein metabolism, not elsewhere classified; B96.4 Proteus (mirabilis) (morganii) as the cause of diseases classified elsewhere; D63.8 Anemia in other chronic diseases classified elsewhere; E87.6 Hypokalemia; F25.9 Schizoaffective disorder, unspecified; F31.9 Bipolar disorder, unspecified; L89.159 Pressure ulcer of sacral region, unspecified stage; Z95.0 Presence of cardiac pacemaker; N17.9 Acute kidney failure, unspecified; R13.10 Dysphagia, unspecified; N40.1 Benign prostatic hyperplasia with lower urinary tract symptoms; N39.0 Urinary tract infection, site not specified; K21.9 Gastro-esophageal reflux disease without esophagitis; S51.801A Unspecified open wound of right forearm, initial encounter; X58.XXXA Exposure to other specified factors, initial encounter; Y93.9 Activity, unspecified; Y92.129 Unspecified place in nursing home as the place of occurrence of the external cause; L89.610 Pressure ulcer of right heel, unstageable; L89.626 Pressure-induced deep tissue damage of left heel; J98.11 Atelectasis; M62.472 Contracture of muscle, left ankle and foot; M62.471 Contracture of muscle, right ankle and foot; M62.442 Contracture of muscle, left hand; M62.441 Contracture of muscle, right hand; I50.9 Heart failure, unspecified; I11.0 Hypertensive heart disease with heart failure; R53.2 Functional quadriplegia
CPT/HCPCS: 31720; 36415; 36600; 71045-TC; 80048-TC; 80053-TC; 80076-TC; 80202-TC; 81001; 82533; 83605-TC; 83735-TC; 83880; 84100-TC; 84439-TC; 84443-TC; 84478-TC; 84484-TC; 85025-TC; 85730-TC; 86850-TC; 87040-TC; 87070-TC; 87081-TC; 87086-TC; 87186-TC; 93307-TC; 94003-TC; 94760-TC; 94762-TC; 94799-TC; A6248; A6253; A6403; A7526; C9803; G0378; J1650; J1720; J1885; J2185; J2543; J3370; J3475; J3480; J3490; J7030; J7040; J7042; J7050; J7060; J7120; P9016

== ENCOUNTER 2021-10-20 10:29 | Inpatient (IN) | payer MEDICAID ==
[~2021-10-20] VITALS: Ht 175.3 cm; Wt 73.0 kg
[~2021-10-20 10:29] MED LIST: ACET650S26 GT; ASCO-352 GT; BISA10SU11 RC; CHLO473M5 MM; COLL30OI TP; DOXY100T2 PO; IPRA4AER IH; MAGN400O6 GT; MIDO10TA GT; MULT-447 GT; NA P133E RC; NUTR250L58 GT; QUET25TA GT; SACC250C GT; SERT25TA GT; ZINC1CAP2 GT
--- NOTE | 2021-10-20 10:30 | NUR ---
BIB PA FROM [facility]BDOM[facility],G TUBE DISLODGEMENT AND LEAKAGE IN G-TUBE SITE. PT ATTACHED TO MONITOR, VITALS ARE WITHIN NORMAL LIMIT. PT IS TARACH, VENT DEPENDENT. VENT SETTINGS MODE: A/C VC FIO2: 40 VT: 500 RATE: 16 I:E 1:2 PEEP 5 PMAX: 60
[2021-10-20] MEDS ORDERED: DIATR MEGLU/DIATRIZOATE SODIUM 30 ML BOTTLE (GASTROGRAPHIN) PO ONE (11:30)
[2021-10-20] MEDS ORDERED: NUT.237L65 GT (11:38)
[2021-10-20] MEDS ORDERED: CRAN425C6 GT (11:38)
[2021-10-20] MEDS ORDERED: ACET-2605 GT (11:38)
[2021-10-20] MEDS ORDERED: TRAM50TA2 GT (11:38)
[2021-10-20] MEDS ORDERED: ENOX40DI SQ (11:38)
[2021-10-20] MEDS ORDERED: AMIN30LI2 GT (11:38)
[2021-10-20] MEDS ORDERED: DIATR MEGLU/DIATRIZOATE SODIUM 30 ML BOTTLE (GASTROGRAPHIN) ONE (11:44)
[2021-10-20 11:58] LABS: ALBUMIN 2.8 g/dL (3.4-5.0); BILIRUBIN,DIRECT 0.1 mg/dL (0.0-0.2); BILIRUBIN,TOTAL 0.7 mg/dL (0.2-1.0); CALCIUM, SERUM 9.3 mg/dL (8.5-10.1); CREATININE 0.7 mg/dL (0.6-1.3); POTASSIUM 3.5 mmol/L (3.5-5.1); TOTAL PROTEIN, SERUM 7.4 g/dL (6.4-8.2)
[2021-10-20 12:01] LABS: BASOPHILS % (AUTO) 0.1 % (0.0-2.0); EOSINOPHILS % (AUTO) 0.6 % (0.0-6.0); HEMATOCRIT 30 % (39-51); HEMOGLOBIN 9.7 g/dL (13.5-17.5); LYMPHOCYTES # (AUTO) 1.6 K/uL (0.8-4.8); LYMPHOCYTES % (AUTO) 7.1 % (20.0-44.0); MEAN CORPUSCULAR HGB CONC 32 g/dl (31.0-36.0); MEAN CORPUSCULAR VOLUME 85 fL (80-96); MONOCYTES # (AUTO) 1.4 K/uL (0.1-1.30); NEUTROPHILS # (AUTO) 19.4 K/uL (1.8-8.9); NEUTROPHILS % (AUTO) 86.2 % (43.0-81.0); PLATELET COUNT (AUTO) 288 K/uL (150-450); RED BLOOD CELL COUNT(AUTO) 3.49 MIL/uL (4.5-6.0); WHITE BLOOD COUNT (AUTO) 22.5 K/uL (4.3-11.0)
[2021-10-20] MEDS ORDERED: CEFEPIME 1 GM in IV D5W 50 ML IV ONE (13:00)
[2021-10-20] MEDS ORDERED: IV NS 0.9% 1,000 ML BAG IV ONE (13:00)
[2021-10-20] MEDS ORDERED: VANCOMYCIN 1 GM in IV D5W 250 ML IV ONE (13:00)
--- NOTE | 2021-10-20 13:21 | NUR ---
PT RETURNED FROM CT WITH ACLS PROTOCOLS IN PLACE
--- NOTE | 2021-10-20 15:01 | NUR ---
URINE COLLECTED AND SENT
--- NOTE | 2021-10-20 16:06 | NUR ---
REPORT GIVEN TO NURSE PERALTA FOR EASTON
[2021-10-20] MEDS ORDERED: BISACODYL SUPP (10 MG) 10 MG/SUPP.RECT SUPP.RECT RC PRN (16:30)
[2021-10-20] MEDS ORDERED: ACETAMINOPHEN 325 MG TABLET PO PRN (16:30)
[2021-10-20] MEDS ORDERED: ONDANSETRON HCL/PF 4 MG/2 ML VIAL IVP PRN (16:30)
[2021-10-20] MEDS ORDERED: Z GUARD REMEDY 4 OZ OINT TP PRN (16:30)
--- NOTE | 2021-10-20 16:43 | NUR ---
PT TRANSPORTED TO [facility] WITH ACLS PROTOCOLS IN PLACE ACCOMPANIED BY RT
--- NOTE | 2021-10-20 16:45 | NUR ---
RN NOTES PATIENT ARRIVED TO UNIT AT ROOM 328-2 VIA GURNEY, ACCOMPANIED BY 2 ER NURSES AND 1 RT. PATIENT HAS TRACH AND IS ON MECH VENT, SETTINGS TOLERATED BY PATIENT.
[2021-10-20 17:05] LABS: COLOR,URINE YELLOW (YELLOW)
[2021-10-20 17:06] LABS: PH,URINE 6.5 (5.0-8.0); PROTEIN,URINE 2+ mg/dl (NEGATIVE); UGLUCOSE NEGATIVE (NEGATIVE)
[2021-10-20 17:07] LABS: BILIRUBIN,URINE NEGATIVE (NEGATIVE); LEUKOCYTE ESTERASE ,URINE LARGE (NEGATIVE); NITRITE, URINE NEGATIVE (NEGATIVE); UROBILINOGEN,URINE NORMAL EU/dL (0.2)
[2021-10-20 17:10] LABS: BACTERIA,URINE Many /HPF (None Seen); SQUAMOUS EPITHELIAL CELL,UR Rare /HPF (None Seen); WBC,URINE 51-80 /HPF (0-3)
--- NOTE | 2021-10-20 17:10 | NUR ---
RT Received pt awake and responsive.Pt on Portex 7 CUFFED. Placed pt on vent settings provided by transport RT as noted. Pt tolerating current settings well. No new orders, will continue to monitor.
[2021-10-20 17:11] LABS: CALCIUM OXALATE CRYSTALS,UR Few /HPF (None Seen)
[2021-10-20] MEDS: QUETIAPINE FUMARATE 25 MG TABLET GT SCH (19:00)
[2021-10-20] MEDS: CHLORHEXIDINE GLUCONATE 15 ML UDC MM SCH (19:00)
[2021-10-20] MEDS: MIDODRINE HCL (5MG) 5 MG TABLET PO SCH (19:00)
--- NOTE | 2021-10-20 19:08 | NUR ---
RN NOTES PHOTO OF SKIN ISSUE TAKEN.
--- NOTE | 2021-10-20 19:30 | NUR ---
METAL TRADES INSTRUCTOR OPENING NOTES RECEIVED PATIENT LYING IN BED CONNECTED TO MECHANICAL VENT. SETTINGS: TV 500, FIO2 40%, AC 16 BPM, PEEP 5. A/O X2-3, NODS TO YES AND NO QUESTIONS. ON TELE MONITORING BUT NOT CONNECTED OF THIS TIME. HAS F/C DRAINING YELLOW AND CLEAR URINE. HAS LEFT WRIST IV ACCESS #20G. HAS G-TUBE WITH DRY DRESSING. SAFETY PRECAUTIONS IN PLACE. WILL CONTINUE PLAN OF CARE.
--- NOTE | 2021-10-20 19:30 | NUR ---
RN NOTES ENDORSED TO LAND LAW EXAMINER RN FOR E[facility]ON. CURRENTLY ON CARDIAC MONITORING, READING OF SR, HR IN THE 70'S, V-PACING, NO CARDIAC DISTRESS NOTED.
[2021-10-20] MEDS: PIPERACILLIN /TAZOBACTAM 3.375 G in IV D5W 50 ML IV SCH (19:59)
[2021-10-20 20:00] VITALS: BP 82/54
--- NOTE | 2021-10-20 20:00 | NUR ---
HOSTEL MANAGER NOTES DAUGHTER ON BEDSIDE. DISCUSSED PLAN OF CARE, VERBALIZED UNDERSTANDING.
--- NOTE | 2021-10-20 20:04 | NUR ---
RN NOTES SACRAL WOUND SWAB SPECIMEN OBTAINED AND PLACED IN THE REFRIGERATOR, READY FOR PICKUP.
[2021-10-20] MEDS: IV LR 1000 ML 1,000 ML IV PRN (20:07)
[2021-10-20] MEDS: VANCOMYCIN 1 GM in IV D5W 250 ML IV SCH (22:05)
[2021-10-21] VITALS: BP 75/45
--- NOTE | 2021-10-21 00:46 | NUR ---
AUTOMOBILE RADIATOR MECHANIC NOTES PATIENT'S BP IS 70/45, HR 88. NOTIFIED DR. MEANS AND ORDERED IVF LR 500 ML BOLUS. NOTED AND CARRIED OUT.
[2021-10-21] MEDS ORDERED: IV LR 1000 ML 500 ML IV PRN (01:40)
[2021-10-21] MEDS: PIPERACILLIN /TAZOBACTAM 3.375 G in IV D5W 50 ML IV SCH ×3 (01:52→11:47)
--- NOTE | 2021-10-21 01:54 | NUR ---
CINDER DUMP CRANE OPERATOR NOTES COMPLETED BOLUS IVF 500 ML. WILL ADMINISTER SCHEDULED ATB NOW.
[2021-10-21] MEDS: TRAMADOL HCL 50 MG TABLET GT PRN (01:58)
[2021-10-21 04:00] VITALS: BP 70/41
--- NOTE | 2021-10-21 04:50 | NUR ---
PEDIATRIC PHYSICAL THERAPY ASSISTANT NOTES PATIENT'S BP 70/41. NOTIFIED DR. MEANS AND ORDERED MIDODRINE 10MG AND NS 250 ML BOLUS. NOTED AND CARRIED OUT.
[2021-10-21] MEDS ORDERED: MIDODRINE HCL (5MG) 5 MG TABLET GT STA (04:59)
[2021-10-21] MEDS ORDERED: IV NS 0.9% 250 ML IV ONE (05:00)
[2021-10-21] MEDS: VANCOMYCIN 1 GM in IV D5W 250 ML IV SCH (05:58)
[2021-10-21 07:09] LABS: BASOPHILS % (AUTO) 0.2 % (0.0-2.0); EOSINOPHILS % (AUTO) 5.3 % (0.0-6.0); HEMATOCRIT 25 % (39-51); HEMOGLOBIN 8.3 g/dL (13.5-17.5); LYMPHOCYTES # (AUTO) 0.8 K/uL (0.8-4.8); LYMPHOCYTES % (AUTO) 6.8 % (20.0-44.0); MEAN CORPUSCULAR HGB CONC 33 g/dl (31.0-36.0); MEAN CORPUSCULAR VOLUME 83 fL (80-96); MONOCYTES # (AUTO) 0.9 K/uL (0.1-1.30); MONOCYTES % (AUTO) 7.9 % (2.0-12.0); NEUTROPHILS % (AUTO) 79.8 % (43.0-81.0); PLATELET COUNT (AUTO) 226 K/uL (150-450); RED BLOOD CELL COUNT(AUTO) 3.04 MIL/uL (4.5-6.0); WHITE BLOOD COUNT (AUTO) 11.3 K/uL (4.3-11.0)
[2021-10-21 07:27] LABS: THYROID STIMULATING HORMONE 1.748 uIU/mL (0.358-3.74)
--- NOTE | 2021-10-21 07:29 | NUR ---
TRIPLE DRUM OPERATOR OPENING NOTES RECEIVED PATIENT AWAKE IN BED. OPENS EYES TO VERBAL AND TACTILE STIMULI. A/O X2-3. NODS TO YES AND NO QUESTIONS. ON MECHANICAL VENT, SETTINGS: TV 500, FIO2 40%, AC 16 BPM, PEEP 5. WITH SPO2 97%. ON TELE MONITOR WITH CURRENT READING SINUS RHYTHM, HR AT 72. BAUMAN CATH. INTACT AND DRAINING YELLOW AND CLEAR URINE, OUTPUT 700ML. GTUBE IN PLACE, INTACT AND PATENT. SAFETY PRECAUTIONS IN PLACE: BED LOW AND LOCKED, HOB ELEVATED, SIDE RAILS UP X2, CALL LIGHT WITHIN REACH. WILL CONTINUE TO MONITOR PT AND WITH PLAN OF CARE.
--- NOTE | 2021-10-21 07:30 | NUR ---
HAND COOPER HELPER CLOSING NOTES PATIENT LYING IN BED WITH EYES CLOSED. OPENS EYES TO VERBAL AND TACTILE STIMULI. A/O X2-3. NODS TO YES AND NO QUESTIONS. CONNECTED TO MECHANICAL VENT, SETTINGS: TV 500, FIO2 40%, AC 16 BPM, PEEP 5. ON TELE MONITOR READING SINUS RHYTHM AT 71 BPM. HAS F/C DRAINING YELLOW AND CLEAR URINE, OUTPUT 1000 ML. HAS LEFT WRIST IV ACCESS #20G WITH LR RUNNING AT 85 ML/HR. G-TUBE FEEDING ENDORSED TO AM NURSE. ALL NEEDS ATTENDED. KEPT DRY AND COMFORTABLE. SAFETY PRECAUTIONS IN PLACE: BED LOW AND LOCKED, SIDE RAILS UP X2, CALL LIGHT WITHIN REACH.
[2021-10-21 07:42] LABS: CALCIUM, SERUM 9.1 mg/dL (8.5-10.1); CREATININE 0.5 mg/dL (0.6-1.3); PHOSPHORUS 3.3 mg/dL (2.5-4.9)
[2021-10-21 08:01] LABS: POTASSIUM 2.8 mmol/L (3.5-5.1)
[2021-10-21] MEDS: VITAL AF 1.2 1,000 ML BOTTLE GT SCH (08:11)
[2021-10-21] MEDS ORDERED: COLLAGENASE 30 GM TUBE TP SCH (09:00)
[2021-10-21] MEDS: SERTRALINE HCL 25 MG TABLET GT SCH (09:18)
[2021-10-21] MEDS: CHLORHEXIDINE GLUCONATE 15 ML UDC MM SCH ×2 (09:18→17:47)
[2021-10-21] MEDS: ASCORBIC ACID 500 MG TABLET GT SCH (09:18)
[2021-10-21] MEDS: ZINC SULFATE 220 MG CAPSULE GT SCH (09:19)
[2021-10-21] MEDS: MIDODRINE HCL (5MG) 5 MG TABLET PO SCH ×3 (09:19→17:48)
[2021-10-21] MEDS: PROSOURCE / PROSTAT (PYXIS) 30 ML UDC GT SCH (09:25)
[2021-10-21] MEDS: QUETIAPINE FUMARATE 25 MG TABLET GT SCH ×2 (09:25→17:47)
[2021-10-21] MEDS: ENOXAPARIN SODIUM 40 MG/0.4 ML DISP.SYRIN SQ SCH (09:38)
[2021-10-21] MEDS ORDERED: POTASSIUM CHLORIDE 20 MEQ POWDER PACKET GT SCH (10:00)
--- NOTE | 2021-10-21 10:27 | NUR ---
WOUND CARE CONSULT: PT PRESENTS WITH STAGE 4 PRESSURE ULCERS TO BILATERAL BUTTOCKS AND SACRUM WELL DRY WOUNDS TO BILATERAL HEELS AND LEFT FOOT, PRESENT ON ADMISSION. DR FRIEDMAN AND DR HURT NOTIFIED OF SURGICAL AND DPM CONSULT REQUESTS. FIRST STEP LOW AIRLOSS MATTRESS ORDERED. RECOMMENDATIONS MADE FOR SKIN PROTECTION. DISCUSSED WITH NURSING STAFF. MD IN AGREEMENT WITH PLAN OF CARE.
--- NOTE | 2021-10-21 19:27 | NUR ---
ACCOUNT SUPPORT MANAGER CLOSING NOTES PATIENT AWAKE IN BED. OPENS EYES TO VERBAL AND TACTILE STIMULI. A/O X2-3. NODS TO YES AND NO QUESTIONS. ON MECHANICAL VENT, SETTINGS: TV 500, FIO2 40%, AC 16 BPM, PEEP 5. WITH SPO2 98%. ON TELE MONITOR WITH CURRENT READING SINUS RHYTHM, HR AT 74. BAUMAN CATH. INTACT AND DRAINING YELLOW AND CLEAR URINE, OUTPUT [address], INTACT AND PATENT WITH FEEDING RUNNING AT 60ML/HR. ALL NEEDS ATTENDED. TURNED AND REPOSITIONED Q2HRS AND NEEDED. SAFETY PRECAUTIONS IN PLACE: BED LOW AND LOCKED, HOB ELEVATED, SIDE RAILS UP X2, CALL LIGHT WITHIN REACH. ENDORSED TO NIGHT NURSE FOR CONTINUITY OF CARE. Addendum: 10/21/21 at 1936 by EDUARDO MODI RN ADDENDUM L GRACIELA G #20 INTACT AND PATENT, WITH LR RUNNING AT 85ML/HR.
--- NOTE | 2021-10-21 19:35 | NUR ---
RN NOTES RECEIVED PATIENT SLEEPING BUT AROUSABLE, NON-VERBAL BUT PT. RESPONDS/NODS TO YES AND NO, VENT DEPENDENT, V-PACING HR-72, F/C DRAINING CLEAR YELLOW URINE, ON G-TUBE FEEDING RUNNING @ 60ML/HR, PT. IS TOLERATING FAIRLY, SAFETY MEASURES APPLIED, NOT IN DISTRESS, NO PAIN NOTED, WILL CONTINUE TO MONITOR
[2021-10-21 20:00] VITALS: BP_SYST 93; BP_DIAS 53; BP_DIAS 54
[2021-10-21] MEDS: MEROPENEM 1 G in IV NS 0.9% 100 ML IV SCH (20:30)
[2021-10-21] MEDS: HYDROGEL DRESSING 90 GM TUBE TP SCH (20:30)
[2021-10-21] MEDS: DAKINS QUARTER STRENGTH (0.125%) 480 ML BOTTLE TOP SCH (20:31)
--- NOTE | 2021-10-21 21:20 | NUR ---
RN NOTES CALLED PT'S [facility] AND GOT A TELEPHONE CONSENT FOR SACRAL DEBRIDEMENT TOMORROW, WITNESSED BY ANOTHER RN TAVIA
[2021-10-21] MEDS: IV LR 1000 ML 1,000 ML IV PRN (22:03)
[2021-10-22] VITALS: BP 99/62
[2021-10-22] MEDS: VITAL AF 1.2 1,000 ML BOTTLE GT SCH (02:38)
[2021-10-22] MEDS: MEROPENEM 1 G in IV NS 0.9% 100 ML IV SCH ×3 (04:34→20:46)
[2021-10-22 05:00] VITALS: BP 101/59
[2021-10-22] MEDS: VANCOMYCIN 1 GM in IV D5W 250 ML IV SCH ×2 (06:09→17:49)
--- NOTE | 2021-10-22 06:35 | NUR ---
RN NOTES AWAKE, NOT IN DISTRESS, MORNING CARE RENDERED, G-TUBE DRESSING CHANGE, SAFETY MEASURED APPLIED, PT. NEEDS ATTENDED
--- NOTE | 2021-10-22 07:29 | NUR ---
COREMAKER HELPER OPENING NOTES RECEIVED PATIENT ASLEEP IN BED. OPENS EYES TO VERBAL AND TACTILE STIMULI. A/O X2-3. NODS TO YES AND NO QUESTIONS. ON MECHANICAL VENT, TOLERATING WELL, WITH SPO2 98%. BREATHING UNLABORED WITH NO SIGN OF RESPIRATORY DISTRESS. ON TELE MONITOR WITH CURRENT READING SINUS RHYTHM WITH V PACING, HR AT 81. L WRIST IV ACCESS INTACT AND PATENT WITH LR RUNNING AT 85ML/HR. BAUMAN CATH. INTACT AND DRAINING YELLOW AND CLEAR URINE. GTUBE IN PLACE, INTACT AND PATENT WITH FEEDING RUNNING AT 60ML/HR. SAFETY PRECAUTIONS IN PLACE: BED LOW AND LOCKED, HOB ELEVATED, SIDE RAILS UP X2, CALL LIGHT WITHIN REACH. WILL CONTINUE TO MONITOR PT AND WITH PLAN OF CARE.
[2021-10-22] MEDS: CHLORHEXIDINE GLUCONATE 15 ML UDC MM SCH ×2 (09:06→16:06)
[2021-10-22] MEDS: MIDODRINE HCL (5MG) 5 MG TABLET PO SCH ×3 (09:07→16:06)
[2021-10-22] MEDS: ASCORBIC ACID 500 MG TABLET GT SCH (09:07)
[2021-10-22] MEDS: SERTRALINE HCL 25 MG TABLET GT SCH (09:07)
[2021-10-22] MEDS: ZINC SULFATE 220 MG CAPSULE GT SCH (09:07)
[2021-10-22] MEDS: QUETIAPINE FUMARATE 25 MG TABLET GT SCH ×2 (09:07→16:06)
[2021-10-22] MEDS: ENOXAPARIN SODIUM 40 MG/0.4 ML DISP.SYRIN SQ SCH (09:08)
[2021-10-22] MEDS: PROSOURCE / PROSTAT (PYXIS) 30 ML UDC GT SCH (09:37)
[2021-10-22] MEDS: HYDROGEL DRESSING 90 GM TUBE TP SCH (09:38)
[2021-10-22] MEDS: DAKINS QUARTER STRENGTH (0.125%) 480 ML BOTTLE TOP SCH (09:38)
[2021-10-22 12:36] LABS: BASOPHILS % (AUTO) 0.3 % (0.0-2.0); HEMATOCRIT 24 % (39-51); HEMOGLOBIN 8.1 g/dL (13.5-17.5); LYMPHOCYTES # (AUTO) 0.9 K/uL (0.8-4.8); MEAN CORPUSCULAR HGB CONC 33 g/dl (31.0-36.0); MEAN CORPUSCULAR VOLUME 84 fL (80-96); MONOCYTES # (AUTO) 0.6 K/uL (0.1-1.30); MONOCYTES % (AUTO) 6.5 % (2.0-12.0); NEUTROPHILS # (AUTO) 6.6 K/uL (1.8-8.9); NEUTROPHILS % (AUTO) 69.2 % (43.0-81.0); PLATELET COUNT (AUTO) 241 K/uL (150-450); RED BLOOD CELL COUNT(AUTO) 2.92 MIL/uL (4.5-6.0); WHITE BLOOD COUNT (AUTO) 9.6 K/uL (4.3-11.0)
[2021-10-22 12:57] LABS: CALCIUM, SERUM 8.7 mg/dL (8.5-10.1); CREATININE 0.3 mg/dL (0.6-1.3); PHOSPHORUS 2.3 mg/dL (2.5-4.9); POTASSIUM 2.9 mmol/L (3.5-5.1)
[2021-10-22] MEDS ORDERED: NEUTRA PHOS 1 POWD.PACKET GT ONE (15:30)
[2021-10-22] MEDS ORDERED: POTASSIUM CHLORIDE 20 MEQ POWDER PACKET PO ONE (17:30)
[2021-10-22] MEDS: IV LR 1000 ML 1,000 ML IV PRN (17:49)
--- NOTE | 2021-10-22 18:59 | NUR ---
SNOWBOARDING INSTRUCTOR CLOSING NOTES PATIENT ASLEEP IN BED. OPENS EYES TO VERBAL AND TACTILE STIMULI. A/O X2-3. NODS TO YES AND NO QUESTIONS. ON MECHANICAL VENT, TOLERATING WELL, WITH SPO2 99%. BREATHING UNLABORED WITH NO SIGN OF RESPIRATORY DISTRESS. ON TELE MONITOR WITH CURRENT READING SINUS RHYTHM, HR AT 72. TONY MIDLINE G #18 IV ACCESS INTACT AND PATENT AND L WRIST G#20 INTACT WITH LR RUNNING AT 85ML/HR. BAUMAN CATH. INTACT AND DRAINING WELL WITH 900, YELLOW AND CLEAR URINE. GTUBE IN PLACE, INTACT AND PATENT WITH FEEDING RUNNING AT 60ML/HR. ALL NEEDS ATTENDED. TURNED AND REPOSITIONED Q2HRS AND NEEDED. SAFETY PRECAUTIONS IN PLACE: BED LOW AND LOCKED, HOB ELEVATED, SIDE RAILS UP X2, CALL LIGHT WITHIN REACH. ENDORSED TO SILVERING APPLICATOR NURSE.
--- NOTE | 2021-10-22 19:34 | NUR ---
RN OPENING NOTES RECEIVED PT IN BED, ASLEEP, FAMILY MEMBERS AT BEDSIDE. AOx2-3, ABLE TO NOD HEAD. ON MECHANICAL VENT AND TOLERATING WELL. NO SOB NOTED. NO S/SX OF RESPIRATORY DISTRESS NOTED. TELE MONITOR DETECTS SINUS RHYTHM WITH RATE OF 70s. IV ACCESS IN TONY MIDLINE #18 G AND L WRIST #20G RUNNING LACTATED RINGERS @ 85 ML/HR. SAFETY PRECAUTIONS IN PLACE: BED IN LOWEST, LOCKED POSITION, BRAKES ON, AND SIDERAILS UPx2. TABLE AND CALL LIGHT WITHIN REACH. WILL CONTINUE TO MONITOR. Addendum: 10/23/21 at 0634 by CORTNEY YOUNG RN FAMILY MEMBERS ARE NOT AT BEDSIDE
[2021-10-22 20:00] VITALS: BP 129/75
[2021-10-23] VITALS: BP 87/57
--- NOTE | 2021-10-23 02:05 | NUR ---
CONTACTED ARC TRIMMER, MIGUELANGEL, ABOUT PT'S BP OF 87/57. NO NEW ORDERS. WILL CONTINUE TO MONITOR.
[2021-10-23 04:00] VITALS: BP 110/73
[2021-10-23] MEDS: IV LR 1000 ML 1,000 ML IV PRN ×2 (04:34→18:34)
[2021-10-23] MEDS: MEROPENEM 1 G in IV NS 0.9% 100 ML IV SCH ×3 (04:34→21:25)
[2021-10-23] MEDS: VANCOMYCIN 1 GM in IV D5W 250 ML IV SCH (05:29)
[2021-10-23] MEDS: VITAL AF 1.2 1,000 ML BOTTLE GT SCH (05:39)
--- NOTE | 2021-10-23 06:37 | NUR ---
RN CLOSING NOTES PT IN BED, ASLEEP, AWAKENS TO VERBAL STIMULI. AOx2, ABLE TO NOD HEAD. ON MECHANICAL VENT AND TOLERATING WELL. NO SOB NOTED. NO S/SX OF RESPIRATORY DISTRESS NOTED. TELE MONITOR DETECTS SINUS RHYTHM WITH RATE OF 70s. IV ACCESS IN TONY MIDLINE #18 G AND L WRIST #20G RUNNING LACTATED RINGERS @ 85 ML/HR. ALL ORDERS CARRIED OUT. PT KEPT CLEAN AND DRY. WOUND CARE DONE. SAFETY PRECAUTIONS IN PLACE: BED IN LOWEST, LOCKED POSITION, BRAKES ON, AND SIDERAILS UPx2. TABLE AND CALL LIGHT WITHIN REACH. WILL ENDORSE TO ONCOMING SHIFT FOR EAST[facility].
--- NOTE | 2021-10-23 07:15 | NUR ---
PRIMARY CARE PROVIDER OPENING NOTE PT IN BED, ASLEEP, AWAKENS TO VERBAL STIMULI. PATIENT IS ALERT AND ORIENTEDX2, ABLE TO NOD HEAD. ON MECHANICAL VENT AND TOLERATING WELL NO S/SX OF RESPIRATORY DISTRESS NOTED. TELE MONITOR DETECTS SINUS RHYTHM WITH RATE OF 70s. WITH IV ACCESS IN TONY MIDLINE #18 G AND L WRIST #20G RUNNING LACTATED RINGERS @ 85 ML/HR. SAFETY PRECAUTIONS IN PLACE: BED IN LOWEST, LOCKED POSITION, BRAKES ON, AND SIDERAILS UPx2. TABLE AND CALL LIGHT WITHIN REACH.
[2021-10-23 08:00] VITALS: BP 106/62
[2021-10-23] MEDS: ZINC SULFATE 220 MG CAPSULE GT SCH (09:44)
[2021-10-23] MEDS: CHLORHEXIDINE GLUCONATE 15 ML UDC MM SCH ×2 (09:44→17:00)
[2021-10-23] MEDS: QUETIAPINE FUMARATE 25 MG TABLET GT SCH ×2 (09:45→18:02)
[2021-10-23] MEDS: ASCORBIC ACID 500 MG TABLET GT SCH (09:45)
[2021-10-23] MEDS: SERTRALINE HCL 25 MG TABLET GT SCH (09:45)
[2021-10-23] MEDS: MIDODRINE HCL (5MG) 5 MG TABLET PO SCH ×3 (09:45→18:02)
[2021-10-23] MEDS: PROSOURCE / PROSTAT (PYXIS) 30 ML UDC GT SCH (09:50)
[2021-10-23] MEDS: HYDROGEL DRESSING 90 GM TUBE TP SCH (10:01)
[2021-10-23] MEDS: DAKINS QUARTER STRENGTH (0.125%) 480 ML BOTTLE TOP SCH (10:02)
[2021-10-23] MEDS: ENOXAPARIN SODIUM 40 MG/0.4 ML DISP.SYRIN SQ SCH (10:05)
--- NOTE | 2021-10-23 11:10 | NUR ---
CODING ADVISOR NOTE PATIENT VOMITED TWICE KEPT ON HIGH BACK REST AND SUCTIONED SECRETIONS. NO RESPIRATORY DISTRESS NOTED. MEDICATION GIVEN INDICATED.
[2021-10-23] MEDS: TRAMADOL HCL 50 MG TABLET GT PRN (12:38)
[2021-10-23 13:18] LABS: BASOPHILS % (AUTO) 0.2 % (0.0-2.0); EOSINOPHILS % (AUTO) 7.8 % (0.0-6.0); HEMATOCRIT 25 % (39-51); HEMOGLOBIN 8.2 g/dL (13.5-17.5); LYMPHOCYTES # (AUTO) 0.9 K/uL (0.8-4.8); LYMPHOCYTES % (AUTO) 9.5 % (20.0-44.0); MEAN CORPUSCULAR HGB CONC 32 g/dl (31.0-36.0); MEAN CORPUSCULAR VOLUME 84 fL (80-96); MONOCYTES # (AUTO) 0.4 K/uL (0.1-1.30); NEUTROPHILS # (AUTO) 7.1 K/uL (1.8-8.9); NEUTROPHILS % (AUTO) 78.5 % (43.0-81.0); PLATELET COUNT (AUTO) 230 K/uL (150-450); RED BLOOD CELL COUNT(AUTO) 3.01 MIL/uL (4.5-6.0); WHITE BLOOD COUNT (AUTO) 9.1 K/uL (4.3-11.0)
[2021-10-23 13:29] LABS: CREATININE 0.4 mg/dL (0.6-1.3); PHOSPHORUS 2.6 mg/dL (2.5-4.9); POTASSIUM 3.2 mmol/L (3.5-5.1)
[2021-10-23 16:00] VITALS: BP 92/50
[2021-10-23] MEDS ORDERED: POTASSIUM CHLORIDE 20 MEQ POWDER PACKET GT SCH (16:30)
--- NOTE | 2021-10-23 19:00 | NUR ---
BOTANY LABORATORY ASSISTANT CLOSING NOTE PT IN BED, ASLEEP, AWAKENS TO VERBAL STIMULI. PATIENT IS ALERT AND ORIENTEDX2, ABLE TO NOD HEAD. ON MECHANICAL VENT AND TOLERATING WELL NO S/SX OF RESPIRATORY DISTRESS NOTED. TELE MONITOR DETECTS SINUS RHYTHM WITH RATE OF 70s. WITH IV ACCESS IN TONY MIDLINE #18 G AND L WRIST #20G RUNNING LACTATED RINGERS @ 85 ML/HR. WOUND CARE DONE. NO FURTHER EPISODES OF VOMITING NOTED. SAFETY PRECAUTIONS IN PLACE: BED IN LOWEST, LOCKED POSITION, BRAKES ON, AND SIDERAILS UPx2. TABLE AND CALL LIGHT WITHIN REACH.
--- NOTE | 2021-10-23 19:47 | NUR ---
RN OPENING NOTE PATIENT AWAKE IN BED. A/OX2, ABLE TO NOD IN RESPONSE TO QUESTIONS (Y/N ONLY). NO S/S OF DISTRESS, BREATHING ON VENT W/O DIFFICULTY. LW #20 INTACT AND PATENT W/ LR @85ML/HR; TONY MIDLINE SL INTACT AND PATENT. TELE MONITOR REVEALS SR 76. VITAL AF 1.2 @60ML/HR. SAFETY MEASURES IN PLACE: BED AT LOWEST POSITION, LOCKED, RAILS UP X3, CALL QUINONEZ WITHIN REACH. WILL CONTINUE TO MONITOR PATIENT.
[2021-10-24] MEDS: MEROPENEM 1 G in IV NS 0.9% 100 ML IV SCH ×3 (05:01→21:09)
[2021-10-24] MEDS: VANCOMYCIN 0.75 GM in IV D5W 250 ML IV SCH ×2 (05:54→17:46)
--- NOTE | 2021-10-24 07:31 | NUR ---
RN CLOSING NOTE PATIENT AWAKE IN BED. A/OX2. NO S/S OF DISTRESS, BREATHING BY MECH VENT W/O DIFFICULTY. TONY MIDLINE SL INTACT AND PATENT; LW #20 w/ LR 85ML/HR. TELE MONITOR REVEALS V-PACING 91. GTUBE FEEDING STOPPED AT 0600 AND WILL RESUME AT 1000 GTUBE FEEDING IS Q20HR. SAFETY MEASURES IN PLACE: BED AT LOWEST POSITION, LOCKED, RAILS UP X3, CALL QUINONEZ WITHIN REACH. REPORT ENDORSED TO AND ACKNOWLEDGED BY GRUPO MONGE.
[2021-10-24 07:41] LABS: BASOPHILS % (AUTO) 0.2 % (0.0-2.0); EOSINOPHILS % (AUTO) 3.1 % (0.0-6.0); HEMATOCRIT 27 % (39-51); HEMOGLOBIN 8.5 g/dL (13.5-17.5); LYMPHOCYTES # (AUTO) 0.7 K/uL (0.8-4.8); LYMPHOCYTES % (AUTO) 6.4 % (20.0-44.0); MEAN CORPUSCULAR HGB CONC 32 g/dl (31.0-36.0); MEAN CORPUSCULAR VOLUME 87 fL (80-96); MONOCYTES # (AUTO) 0.4 K/uL (0.1-1.30); MONOCYTES % (AUTO) 3.4 % (2.0-12.0); NEUTROPHILS % (AUTO) 86.9 % (43.0-81.0); RED BLOOD CELL COUNT(AUTO) 3.08 MIL/uL (4.5-6.0); WHITE BLOOD COUNT (AUTO) 11.5 K/uL (4.3-11.0)
[2021-10-24 07:55] LABS: CALCIUM, SERUM 8.8 mg/dL (8.5-10.1); CREATININE 0.4 mg/dL (0.6-1.3); POTASSIUM 3.5 mmol/L (3.5-5.1)
--- NOTE | 2021-10-24 07:58 | NUR ---
RN OPENING NOTE PATIENT IN BED RESTING, SLEEPING, AWAKENS TO VERBAL STIMULI. A/O X 2. NO S/S OF PAIN NOTED AT THIS TIME. ON ON VENT, TOLERATING SETTING WELL AT PRESCRIBED SETTINGS, NO DISTRESS NOTED. IV ACCESS TONY MIDLINE, LW #20G, PATENT AND FLUSHING WELL. PATIENT HAVE A BAUMAN CATHETER, IN PLACE AND DRAINING WELL. FALL AND SAFETY MEASURES IN PLACE, BED ALARM ON, BED IN LOW AND LOCK POSITION, CALL LIGHT AND TABLE WITHIN EASY REACH, SIDE RAILS UP X2. WILL CONTINUE TO MONITOR.
[2021-10-24 08:00] VITALS: BP 77/45
[2021-10-24 08:05] LABS: PLATELET COUNT (AUTO) 43 K/uL (150-450)
[2021-10-24] MEDS: CHLORHEXIDINE GLUCONATE 15 ML UDC MM SCH ×2 (08:23→16:50)
[2021-10-24] MEDS: SERTRALINE HCL 25 MG TABLET GT SCH (08:23)
[2021-10-24] MEDS: MIDODRINE HCL (5MG) 5 MG TABLET PO SCH ×3 (08:23→16:50)
[2021-10-24] MEDS: DAKINS QUARTER STRENGTH (0.125%) 480 ML BOTTLE TOP SCH (08:23)
[2021-10-24] MEDS: QUETIAPINE FUMARATE 25 MG TABLET GT SCH ×2 (08:23→16:50)
[2021-10-24] MEDS: ZINC SULFATE 220 MG CAPSULE GT SCH (08:23)
[2021-10-24] MEDS: ASCORBIC ACID 500 MG TABLET GT SCH (08:23)
[2021-10-24] MEDS: PROSOURCE / PROSTAT (PYXIS) 30 ML UDC GT SCH (08:23)
[2021-10-24] MEDS: HYDROGEL DRESSING 90 GM TUBE TP SCH (08:24)
[2021-10-24] MEDS: ENOXAPARIN SODIUM 40 MG/0.4 ML DISP.SYRIN SQ SCH (09:00)
[2021-10-24 09:31] LABS: EOSINOPHILS % (MANUAL) 4 % (0-4); LYMPHOCYTES % (MANUAL) 8 % (16-48); MONOCYTES % (MANUAL) 3 % (0-11.0); NEUTROPHILS % (MANUAL) 85 (42-76)
--- NOTE | 2021-10-24 10:01 | NUR ---
RN NOTE PATIENT PLATELET IS 43, LAB CALLED, PREVIOUS PLATELET WAS 230, LAB WILL REDRAW AND REPEAT LAB. PATIENT ENOXAPARIN WAS HELD. CHARGE NURSE AWARE.
[2021-10-24] MEDS: IV LR 1000 ML 1,000 ML IV PRN (10:17)
[2021-10-24] MEDS: VITAL AF 1.2 1,000 ML BOTTLE GT SCH (10:17)
[2021-10-24 12:13] LABS: BASOPHILS % (AUTO) 0.1 % (0.0-2.0); EOSINOPHILS % (AUTO) 1.5 % (0.0-6.0); HEMATOCRIT 24 % (39-51); HEMOGLOBIN 7.6 g/dL (13.5-17.5); LYMPHOCYTES # (AUTO) 0.7 K/uL (0.8-4.8); LYMPHOCYTES % (AUTO) 3.9 % (20.0-44.0); MEAN CORPUSCULAR HGB CONC 32 g/dl (31.0-36.0); MEAN CORPUSCULAR VOLUME 84 fL (80-96); MONOCYTES # (AUTO) 0.6 K/uL (0.1-1.30); MONOCYTES % (AUTO) 3.6 % (2.0-12.0); NEUTROPHILS # (AUTO) 15.7 K/uL (1.8-8.9); NEUTROPHILS % (AUTO) 90.9 % (43.0-81.0); PLATELET COUNT (AUTO) 212 K/uL (150-450); WHITE BLOOD COUNT (AUTO) 17.3 K/uL (4.3-11.0)
[2021-10-24 16:00] VITALS: BP 93/63
--- NOTE | 2021-10-24 18:42 | NUR ---
RN CLOSING NOTE PATIENT IN BED RESTING, SLEEPING, AWAKENS TO VERBAL STIMULI. A/O X 2. NO S/S OF PAIN NOTED AT THIS TIME. ON ON VENT, TOLERATING SETTING WELL AT PRESCRIBED SETTINGS, NO DISTRESS NOTED. IV ACCESS TONY MIDLINE, LW #20G, PATENT AND FLUSHING WELL. PATIENT HAVE A BAUMAN CATHETER, IN PLACE AND DRAINING WELL, OUTPUT 550ML. ALL SCHEDULE MEDICATIONS ADMINISTERED EXCEPT FOR LOVENOX DUE TO PLT. OF 43. FALL AND SAFETY MEASURES IN PLACE, BED ALARM ON, BED IN LOW AND LOCK POSITION, CALL LIGHT AND TABLE WITHIN EASY REACH, SIDE RAILS UP X2. WILL ENDORSE TO NAPPER GRINDER.
--- NOTE | 2021-10-24 19:50 | NUR ---
RN OPENING NOTE PATIENT AWAKE IN BED. A/OX2. NO S/S OF DISTRESS, BREATHING WELL ON MECHANICAL VENT. TONY MIDLINE LW #20 W/ LR @85ML/HR INTACT AND PATENT. TELE MONITOR REVEALS V-PACING & SR PER DEGREASER OPERATOR. VITAL AF 1.2 #60MML/HR. SAFETY MEASURES IN PLACE: BED AT LOWEST POSITION, LOCKED, RAILS UP X3, CALL QUINONEZ WITHIN REACH. WILL CONTINUE TO MONITOR PATIENT.
--- NOTE | 2021-10-24 23:43 | NUR ---
RT PT RECVD AWAKE AND ALERT [facility], TRACH IS PATENT AND SECURED. SUCTION PRN AND TRACH CARE DONE. VENT IS PLUGGED INTO RED WAL OUTLET WITH ALARMS ON AND AUDIBLE. SPARE TRACH AND AMBU BAG AT BEDSIDE. NO SOB OR RESPIRATORY DISTRESS NOTED AT THIS TIME.
[2021-10-25] MEDS: IV LR 1000 ML 1,000 ML IV PRN ×2 (02:22→17:48)
[2021-10-25] MEDS: MEROPENEM 1 G in IV NS 0.9% 100 ML IV SCH ×3 (04:50→20:26)
[2021-10-25] MEDS: VANCOMYCIN 0.75 GM in IV D5W 250 ML IV SCH ×2 (06:08→18:18)
[2021-10-25 06:40] LABS: BASOPHILS % (AUTO) 0.2 % (0.0-2.0); EOSINOPHILS % (AUTO) 9.7 % (0.0-6.0); HEMATOCRIT 24 % (39-51); HEMOGLOBIN 7.5 g/dL (13.5-17.5); LYMPHOCYTES # (AUTO) 1.4 K/uL (0.8-4.8); LYMPHOCYTES % (AUTO) 10.6 % (20.0-44.0); MEAN CORPUSCULAR HGB CONC 32 g/dl (31.0-36.0); MEAN CORPUSCULAR VOLUME 85 fL (80-96); MONOCYTES # (AUTO) 0.6 K/uL (0.1-1.30); MONOCYTES % (AUTO) 4.7 % (2.0-12.0); NEUTROPHILS % (AUTO) 74.8 % (43.0-81.0); PLATELET COUNT (AUTO) 244 K/uL (150-450); RED BLOOD CELL COUNT(AUTO) 2.78 MIL/uL (4.5-6.0); WHITE BLOOD COUNT (AUTO) 13.4 K/uL (4.3-11.0)
[2021-10-25 06:51] LABS: CALCIUM, SERUM 8.8 mg/dL (8.5-10.1); CREATININE 0.4 mg/dL (0.6-1.3); POTASSIUM 3.6 mmol/L (3.5-5.1)
--- NOTE | 2021-10-25 07:27 | NUR ---
RN CLOSING NOTE PATIENT AWAKE IN BED. A/OX2, NODS HEAD. NO S/S OF DISTRESS, BREATHING BY MECHANICAL VENT W/O DIFFICULTY. TONY MIDLINE, LW #20 INTACT AND PATENT; LW W/ LR 85ML/HR. TELE MONITOR REVEALS V-PACING 76. VITAL AF 1.2 TO BE RESUMED AT 1000, @ 85ML/HR. SAFETY MEASURES IN PLACE: BED AT LOWEST POSITION, LOCKED, RAILS UP X3, CALL QUINONEZ WITHIN REACH. REPORT ENDORSED TO AND ACKNOWLEDGED BY GRUPO.
--- NOTE | 2021-10-25 07:53 | NUR ---
RN OPENING NOTE PATIENT IN BED RESTING, SLEEPING, AWAKENS TO VERBAL STIMULI. A/O X 2. NO S/S OF PAIN NOTED AT THIS TIME. ON ON VENT, TOLERATING SETTING WELL AT PRESCRIBED SETTINGS, NO DISTRESS NOTED. IV ACCESS TONY MIDLINE, LW #20G, PATENT AND FLUSHING WELL. PATIENT HAVE A BAUMAN CATHETER, IN PLACE AND DRAINING WELL. PATIENT ON EXTERNAL SUPERVISOR LABORATORY ANIMAL FACILITY WITH CURRENT READING OF V-PACING AND HR OF 76. FALL AND SAFETY MEASURES IN PLACE, BED ALARM ON, BED IN LOW AND LOCK POSITION, CALL LIGHT AND TABLE WITHIN EASY REACH, SIDE RAILS UP X2. WILL CONTINUE TO MONITOR.
--- NOTE | 2021-10-25 08:00 | NUR ---
RT Patient received on FIO2 40%. HR 61 SPO2 77%. Increased FIO2 to 100% due to episodes of desaturation. Suctioned large amount of very thick yellow secretions. RN notified. Will continue to monitor patient.
--- NOTE | 2021-10-25 09:00 | NUR ---
RT Pt is awake and alert. SPO2 100%. Changed FIO2 back to 40%.
[2021-10-25] MEDS: ASCORBIC ACID 500 MG TABLET GT SCH (09:10)
[2021-10-25] MEDS: CHLORHEXIDINE GLUCONATE 15 ML UDC MM SCH ×2 (09:10→17:45)
[2021-10-25] MEDS: ZINC SULFATE 220 MG CAPSULE GT SCH (09:10)
[2021-10-25] MEDS: QUETIAPINE FUMARATE 25 MG TABLET GT SCH ×2 (09:10→17:45)
[2021-10-25] MEDS: ENOXAPARIN SODIUM 40 MG/0.4 ML DISP.SYRIN SQ SCH (09:10)
[2021-10-25] MEDS: SERTRALINE HCL 25 MG TABLET GT SCH (09:11)
[2021-10-25] MEDS: MIDODRINE HCL (5MG) 5 MG TABLET PO SCH ×3 (09:11→17:00)
[2021-10-25] MEDS: DAKINS QUARTER STRENGTH (0.125%) 480 ML BOTTLE TOP SCH (09:12)
[2021-10-25] MEDS: HYDROGEL DRESSING 90 GM TUBE TP SCH (09:12)
[2021-10-25] MEDS: PROSOURCE / PROSTAT (PYXIS) 30 ML UDC GT SCH (09:13)
[2021-10-25 10:16] LABS: ABG BASE EXCESS -0.2 mmol/L; ABG PCO2 33.7 mmHg (35.0-45.0); ABG PH 7.459 (7.350-7.450); ABG PO2 81.2 mmHg (75.0-100.0); COHb 0.2 % (0.5-1.5); MetHb 0.5 % (0.0-1.5); O2Hb 94.9 % (94.0-97.0); PEEP,BG 5 cm H2O; SITE, ABG Right Femoral; VT, ABG 500 mL
--- NOTE | 2021-10-25 10:56 | NUR ---
RN NOTE PATIENT SATURATION WENT DOWN UP TO 65% TODAY, RT WAS CALLED, PATIENT WAS SUCTION AND FIO2 WAS CHANGED FROM 40% TO 100% FOR A SHORT PERIOD OR TIME. CHEST X-RAY AND ABG WAS ORDERED, EDWIGE SENT THE BLOOD GAS RESULT TO DOCTOR FRANKS, NO NEW ORDER PER DOCTOR AT THE MOMENT. PATIENT IS BACK TO FIO2 40% AND SATURATION AT 96%, PATIENT SEEMED STABLE, NO DISTRESS. WILL CONTINUE TO MONITOR.
--- NOTE | 2021-10-25 15:34 | NUR ---
RN NOTE PATIENT HAVE AN OLD RED SCAB ON LEFT SIDE OF HIS NOSE, UNDER GLASSES. PICTURE WAS TAKEN. CHARGE NURSE AWARE.
--- NOTE | 2021-10-25 17:47 | NUR ---
RN NOTE PATIENT 1700 MIDODRINE WAS HELD, PATIENT BLOOD PRESSURE WAS 148/87, PULSE 76. WILL CONTINUE TO MONITOR HIS BLOOD PRESSURE.
--- NOTE | 2021-10-25 19:34 | NUR ---
RN CLOSING NOTE PATIENT IN BED RESTING, SLEEPING, AWAKENS TO VERBAL STIMULI. A/O X 2. NO S/S OF PAIN NOTED AT THIS TIME. ON ON VENT, TOLERATING SETTING WELL AT PRESCRIBED SETTINGS, NO DISTRESS NOTED. IV ACCESS TONY MIDLINE, LW #20G, PATENT AND FLUSHING WELL. PATIENT HAVE A BAUMAN CATHETER, IN PLACE AND DRAINING WELL, OUTPUT 1600ML. ALL SCHEDULE MEDICATIONS ADMINISTERED. PATIENT ON EXTERNAL DIRECTOR MARKETING WITH CURRENT READING OF V-PACING AND HR OF 77, NO CARDIAC DISTRESS NOTED. FALL AND SAFETY MEASURES IN PLACE, BED ALARM ON, BED IN LOW AND LOCK POSITION, CALL LIGHT AND TABLE WITHIN EASY REACH, SIDE RAILS UP X2. WILL ENDORSE TO DATA WAREHOUSE SPECIALIST.
--- NOTE | 2021-10-25 19:35 | NUR ---
RN NOTE PT AWAKE, A/OX2, NODS OR SHAKES HEAD TO ANSWER. RESPIRATIONS EVEN/UNLABORED. VENT SETTINGS CONCETTA WELL. IV ACCESS: TONY MIDLINE #20 INTACT/PATENT, RUNNING LR @85ML/HR. TELE MONITOR READING V-PACING, HR 71. GT IN PLACE/PATENT/NO RESIDUALS. ON GTF VITAL AF @60ML/HR AND CONCETTA WELL. F/C DRAINING CLEAR YELLOW URINE. PT IN NO ACUTE DISTRESS. SAFETY MEASURES IN PLACE. WILL CONT TO MONITOR.
[2021-10-25 21:32] VITALS: BP 120/73
[2021-10-26 00:58] VITALS: BP 115/72
[2021-10-26] MEDS: VITAL AF 1.2 1,000 ML BOTTLE GT SCH (03:49)
[2021-10-26] MEDS: MEROPENEM 1 G in IV NS 0.9% 100 ML IV SCH ×2 (04:12→14:00)
[2021-10-26] MEDS: VANCOMYCIN 0.75 GM in IV D5W 250 ML IV SCH ×2 (05:46→17:05)
[2021-10-26 07:08] LABS: BASOPHILS % (AUTO) 0.3 % (0.0-2.0); EOSINOPHILS % (AUTO) 13.1 % (0.0-6.0); HEMATOCRIT 22 % (39-51); HEMOGLOBIN 7.2 g/dL (13.5-17.5); LYMPHOCYTES % (AUTO) 11.2 % (20.0-44.0); MEAN CORPUSCULAR HGB CONC 33 g/dl (31.0-36.0); MEAN CORPUSCULAR VOLUME 84 fL (80-96); MONOCYTES # (AUTO) 0.5 K/uL (0.1-1.30); NEUTROPHILS # (AUTO) 6.4 K/uL (1.8-8.9); NEUTROPHILS % (AUTO) 70.4 % (43.0-81.0); PLATELET COUNT (AUTO) 248 K/uL (150-450); WHITE BLOOD COUNT (AUTO) 9.2 K/uL (4.3-11.0)
[2021-10-26 07:36] LABS: CALCIUM, SERUM 8.4 mg/dL (8.5-10.1); CREATININE 0.3 mg/dL (0.6-1.3); POTASSIUM 3.4 mmol/L (3.5-5.1)
--- NOTE | 2021-10-26 07:44 | NUR ---
RN OPENING NOTES Patient seen comfortably lying in bed, no apparent distress noted, respirations even and unlabored, no shortness of breath, no grimacing. Call light left within reach, safety precautions in place, brakes locked, side rails up X 2.
[2021-10-26 08:00] VITALS: BP 94/63
[2021-10-26] MEDS: CHLORHEXIDINE GLUCONATE 15 ML UDC MM SCH ×2 (09:00→17:05)
[2021-10-26] MEDS: ZINC SULFATE 220 MG CAPSULE GT SCH (09:01)
[2021-10-26] MEDS: ENOXAPARIN SODIUM 40 MG/0.4 ML DISP.SYRIN SQ SCH (09:01)
[2021-10-26] MEDS: ASCORBIC ACID 500 MG TABLET GT SCH (09:01)
[2021-10-26] MEDS: QUETIAPINE FUMARATE 25 MG TABLET GT SCH ×2 (09:01→17:05)
[2021-10-26] MEDS: SERTRALINE HCL 25 MG TABLET GT SCH (09:01)
[2021-10-26] MEDS: MIDODRINE HCL (5MG) 5 MG TABLET PO SCH ×3 (09:02→17:00)
[2021-10-26] MEDS: PROSOURCE / PROSTAT (PYXIS) 30 ML UDC GT SCH (09:02)
[2021-10-26] MEDS: HYDROGEL DRESSING 90 GM TUBE TP SCH (09:15)
[2021-10-26] MEDS: DAKINS QUARTER STRENGTH (0.125%) 480 ML BOTTLE TOP SCH (09:16)
[2021-10-26] MEDS ORDERED: POTASSIUM CHLORIDE 20 MEQ POWDER PACKET GT SCH ×2 (12:00→14:00)
[2021-10-26] MEDS ORDERED: SODI473S8 TOP (15:27)
[2021-10-26] MEDS ORDERED: ERTA1VIA4 IJ (15:27)
[2021-10-26] MEDS ORDERED: VANC750P9 IV (15:27)
[2021-10-26 16:00] VITALS: BP 134/80
--- NOTE | 2021-10-26 18:36 | NUR ---
RN CLOSING NOTES Patient lying in bed, no shortness of breath, and no apparent distress noted, breathing even and unlabored, remained afebrile during shift, no grimacing noted at this time. Gtube remained in place, patent and intact, placement verified via auscultation and aspiration of gastric contents. All due medications via gtube per MD order, tolerated well. Patient has an order for gtube feeding (Vital AF at 60 ml/hr), tolerating rate at this time, no nausea, no vomiting during shift, no diarrhea, abdominal bowel sounds present in all quadrants, no grimacing when abdomen palpated. Demarco catheter draining clear yellowish urine free from any sediments, no hematuria, and no unusual odor noted in urine, no grimacing when bladder palpated, bladder non distended during shift. Patient has an order for IV antibiotics, tolerating well and also has an ongoing IV fluid for hydration (LR at 85ml/hr), infusing well on his right upper arm midline, midline patent, intact and flushing well, no redness, no swelling noted, no s/s of infiltration at this time. Aspiration precaution observed at all times, kept clean and dry, all needs anticipated, safety precautions in place, brakes locked, frequent repositioning done, padded side rails up X 2, call light left within reach.
--- NOTE | 2021-10-26 18:48 | NUR ---
Patient to be discharged to [facility] today, gave report to Tamika MONGE (phone [phone]) no apparent distress noted, no grimacing, respirations even and unlabored, no shortness of breath, remained afebrile. Patient's Margarita made aware of the situation, verbalized understanding and gratitude. 2RNs signed discharge paperwork and inventory list, patient unable to sign, all belongings taken. Skin intact, warm to touch, no pallor or cyanosis noted. Patient noted to have bilateral heel DTI, sacral and bilateral buttocks wounds and wound on right wrist, photos taken and filed in patient's chart. Per hospitalist, keep moreno catheter upon discharge, for wound management, moreno catheter is draining clear, yellowish urine, free from any sediments, no cloudiness, no hematuria, no grimacing when bladder area palpated, no unusual odor noted in urine. Moreno catheter bag changed prior to discharge. Patient has peripheral IV on his left wrist and midline on his right upper arm midline, per Tamika MONGE from [facility], keep both lines. Both IV lines covered with dry dressing, patent, intact and flushing well, no redness, no swelling noted, no s/s of infiltration at this time.
--- NOTE | 2021-10-26 19:51 | NUR ---
MS/TELE/RN PATIENT IS AWAKE, NON VERBAL, ON MECHANICAL VENTILATOR, G TUBE FEEDING INFUSING, HOB ELEVATED, NO SIGNS OF DISTRESS NOTED, WAITING FOR AMBULANCE FOR DISCHARGE. WILL MONITOR.
[2021-10-26 20:24] VITALS: BP 137/77
--- NOTE | 2021-10-26 20:27 | NUR ---
MS/TELE/RN AMBULANCE ARRIVED AT 190, REPORT GIVEN TO EMT, PAPER WORKS GIVEN TO EMT, PATIENT LEFT THE FLOOR AT 2019 IN STABLE CONDITION, WITH VITAL SIGNS STABLE AND AFEBRILE.
== END 2021-10-26 20:25 | DRG 710 ==
LOC: ER 10:34 → TRANSITION 15:00 → TELE 16:06
PROVIDERS: ADMIT Nurse Practitioner Acute Care; ATTEND Nurse Practitioner Acute Care
PROC: 5A1955Z Respiratory Ventilation, Greater than 96 Consecutive Hours (ICD-10-PCS; principal; 2021-10-20)
PROC: 0D20XUZ Change Feeding Device in Upper Intestinal Tract, External Approach (ICD-10-PCS; 2021-10-20)
PROC: 0KB90ZZ Excision of Right Lower Arm and Wrist Muscle, Open Approach (ICD-10-PCS; 2021-10-22)
PROC: 0KBN0ZZ Excision of Right Hip Muscle, Open Approach (ICD-10-PCS; 2021-10-22)
PROC: 0KBP0ZZ Excision of Left Hip Muscle, Open Approach (ICD-10-PCS; 2021-10-22)
PROC: 05H533Z Insertion of Infusion Device into Right Subclavian Vein, Percutaneous Approach (ICD-10-PCS; 2021-10-22)
PROC: B546ZZA Ultrasonography of Right Subclavian Vein, Guidance (ICD-10-PCS; 2021-10-22)
DX: A41.9 Sepsis, unspecified organism (principal); G93.41 Metabolic encephalopathy; J18.9 Pneumonia, unspecified organism; J96.10 Chronic respiratory failure, unspecified whether with hypoxia or hypercapnia; L89.314 Pressure ulcer of right buttock, stage 4; L89.154 Pressure ulcer of sacral region, stage 4; L89.324 Pressure ulcer of left buttock, stage 4; L89.626 Pressure-induced deep tissue damage of left heel; I11.0 Hypertensive heart disease with heart failure; I50.32 Chronic diastolic (congestive) heart failure; I42.9 Cardiomyopathy, unspecified; R53.2 Functional quadriplegia; Z99.11 Dependence on respirator [ventilator] status; Z93.0 Tracheostomy status; M46.28 Osteomyelitis of vertebra, sacral and sacrococcygeal region; E87.1 Hypo-osmolality and hyponatremia; D64.9 Anemia, unspecified; E87.6 Hypokalemia; F25.9 Schizoaffective disorder, unspecified; F31.9 Bipolar disorder, unspecified; Z79.899 Other long term (current) drug therapy; Z87.440 Personal history of urinary (tract) infections; Z95.0 Presence of cardiac pacemaker; R13.10 Dysphagia, unspecified; I70.0 Atherosclerosis of aorta; Z43.1 Encounter for attention to gastrostomy; M24.522 Contracture, left elbow; M24.521 Contracture, right elbow; M24.571 Contracture, right ankle; M24.572 Contracture, left ankle; S51.801A Unspecified open wound of right forearm, initial encounter; X58.XXXA Exposure to other specified factors, initial encounter; Y93.9 Activity, unspecified; Y92.129 Unspecified place in nursing home as the place of occurrence of the external cause; K21.9 Gastro-esophageal reflux disease without esophagitis; L89.616 Pressure-induced deep tissue damage of right heel; N40.1 Benign prostatic hyperplasia with lower urinary tract symptoms; B96.4 Proteus (mirabilis) (morganii) as the cause of diseases classified elsewhere; B96.20 Unspecified Escherichia coli [E. coli] as the cause of diseases classified elsewhere; Z16.12 Extended spectrum beta lactamase (ESBL) resistance; B95.2 Enterococcus as the cause of diseases classified elsewhere
CPT/HCPCS: 31720; 36410; 36415; 36600; 71045-TC; 74018; 80048-TC; 80061-TC; 80076-TC; 80202-TC; 81001; 82803-TC; 83605-TC; 83690-TC; 83735-TC; 84100-TC; 84443-TC; 85025-TC; 86803; 87040-TC; 87070-TC; 87081-TC; 87086-TC; 87186-TC; 87806; 94003-TC; 94760-TC; 94762-TC; 94799-TC; A6248; A6253; A6403; G0378; J0692; J1650; J2185; J2405; J2543; J3370; J7030; J7040; J7050; J7060; J7120; Q9963

== ENCOUNTER 2022-02-09 16:28 | Inpatient (IN) | payer MEDICAID ==
[~2022-02-09] VITALS: Ht 182.9 cm; Wt 71.2 kg
[2022-02-09] VITALS (10 sets, daily range): BP systolic 94–133; BP diastolic 59–76
[~2022-02-09 16:28] MED LIST changes: +AMIN30LI2 GT; +CRAN425C6 GT; -DOXY100T2 PO; +ENOX40DI SQ; +ERTA1VIA4 IJ; +NUT.237L65 GT; -NUTR250L58 GT; -SACC250C GT; +SODI473S8 TOP; +TRAM50TA2 GT; +VANC750P9 IV
--- NOTE | 2022-02-09 16:30 | NUR ---
[id number] [facility] SNF, "PT LESS RESPONSIVE, NON-VERBAL BUT USUALLY RESPONSIVE BY NODDING". HOT TO TOUCH, ATB DONE x1WK FOR UTI. PT HAS FEVER OF 103 UPON ADMISSION, TYLENOL GIVE. PT HAS PRESSURE ULCERS ON HIS SCARUM. ATTACHED TO MONITOR VITALS ARE WITHIN NORMAL LIMITS. AWAITING MD HENNESSY.
--- NOTE | 2022-02-09 16:35 | NUR ---
VENT SETTINGS MODE: A/C VC FIO2 50 TIDAL VOLUME 500 RATE 16FLOW 60 PEEP 5 PMAX 60
[2022-02-09] MEDS ORDERED: MAG30ORA GT (16:44)
[2022-02-09] MEDS ORDERED: ACET-868 GT (16:44)
[2022-02-09] MEDS ORDERED: ACET-2605 GT (16:44)
[2022-02-09] MEDS ORDERED: FERR300L GT (16:44)
[2022-02-09] MEDS ORDERED: POTA10TA10 GT (16:44)
[2022-02-09] MEDS ORDERED: EPOE1000 SQ (16:44)
[2022-02-09] MEDS ORDERED: DOCU50LI GT (16:44)
[2022-02-09] MEDS ORDERED: VANCOMYCIN HCL 1.25 GM in IV D5W 260 ML IV ONE (17:00)
[2022-02-09] MEDS ORDERED: PIPERACILLIN /TAZOBACTAM 3.375 G in IV D5W 50 ML IV ONE (17:00)
[2022-02-09] MEDS ORDERED: IV LR 1000 ML 1,000 ML IV ONE (17:00)
--- NOTE | 2022-02-09 17:10 | NUR ---
COVID TEST COLLECTED AND SENT
[2022-02-09] MEDS ORDERED: ACETAMINOPHEN 650 MG/SUPP.RECT RC ONE ×2 (17:30)
--- NOTE | 2022-02-09 17:33 | NUR ---
PT MIKE CATHETER REMOVED, NEW 16FR PLACED, 200CC URINE OUTPUT. URINE COLLECTED AND SENT TO LAB.
--- NOTE | 2022-02-09 17:40 | NUR ---
IV ESTABLISHED L UPPER ARM 20G. LABS DRAWN AND COLLECTED AT BEDSIDE.
--- NOTE | 2022-02-09 17:51 | NUR ---
RT Pt placed on settings provided by transport team. Pt tolerating settings well. Received pt on Portex 7 Cuffed trach. No SOB noted. Ambu bag at bedside. No new orders-Will continue to monitor.
[2022-02-09 18:08] LABS: BASOPHILS % (AUTO) 0.1 % (0.0-2.0); HEMATOCRIT 29 % (39-51); HEMOGLOBIN 9.2 g/dL (13.5-17.5); LYMPHOCYTES # (AUTO) 0.6 K/uL (0.8-4.8); MEAN CORPUSCULAR HGB CONC 31 g/dl (31.0-36.0); MEAN CORPUSCULAR VOLUME 79 fL (80-96); MONOCYTES # (AUTO) 1.6 K/uL (0.1-1.30); MONOCYTES % (AUTO) 8.3 % (2.0-12.0); NEUTROPHILS # (AUTO) 17.3 K/uL (1.8-8.9); NEUTROPHILS % (AUTO) 88.6 % (43.0-81.0); PLATELET COUNT (AUTO) 364 K/uL (150-450); WHITE BLOOD COUNT (AUTO) 19.5 K/uL (4.3-11.0)
--- NOTE | 2022-02-09 18:26 | NUR ---
PT RETURNED FROM CT WITH ACLS PROTOCOLS IN PLACE
--- NOTE | 2022-02-09 18:36 | NUR ---
MIDLINE NURSE AT BEDSIDE
[2022-02-09 18:42] LABS: COLOR,URINE YELLOW (YELLOW)
[2022-02-09 18:44] LABS: PH,URINE 7.5 (5.0-8.0)
[2022-02-09 18:45] LABS: BILIRUBIN,URINE NEGATIVE (NEGATIVE); PROTEIN,URINE 1+ mg/dl (NEGATIVE); UGLUCOSE NEGATIVE (NEGATIVE)
[2022-02-09 18:46] LABS: LEUKOCYTE ESTERASE ,URINE LARGE (NEGATIVE); NITRITE, URINE NEGATIVE (NEGATIVE)
[2022-02-09 18:46] LABS: CALCIUM, SERUM 9.8 mg/dL (8.5-10.1); CARBON DIOXIDE 27 mmol/L (21-32); CHLORIDE 97 mmol/L (98-107); CREATININE 1.5 mg/dL (0.6-1.3); GLUCOSE 139 mg/dL (74-106); SODIUM SERUM 134 mmol/L (136-145); UREA NITROGEN, BLOOD 71 mg/dL (7-18)
[2022-02-09 18:51] LABS: ALANINE AMINOTRANSFERASE 56 U/L (12-78); ALBUMIN 2.6 g/dL (3.4-5.0); ALKALINE PHOSPHATASE 245 U/L (46-116); ASPARTATE AMINOTRANSFERASE 85 U/L (15-37); BILIRUBIN,DIRECT 0.6 mg/dL (0.0-0.2); BILIRUBIN,TOTAL 1.8 mg/dL (0.2-1.0); TOTAL PROTEIN, SERUM 7.2 g/dL (6.4-8.2)
[2022-02-09 19:00] LABS: BACTERIA,URINE Many /HPF (None Seen); RBC,URINE TOO NUMEROUS TO COUN /HPF (0-2); WBC,URINE TOO NUMEROUS TO COUN /HPF (0-3)
--- NOTE | 2022-02-09 19:01 | NUR ---
MOVE SHEET SUBMITTED.
--- NOTE | 2022-02-09 19:25 | NUR ---
BED GIVEN ICU 261
[2022-02-09] MEDS ORDERED: IV NS 0.9% 1,000 ML IV ONE (19:30)
[2022-02-09] MEDS ORDERED: AZITHROMYCIN 500 MG in IV D5W 250 ML IV ONE (20:00)
[2022-02-09] MEDS ORDERED: ALBUTEROL FS 2.5 MG/3 ML VIAL.NEB NEB PRN (20:30)
[2022-02-09] MEDS ORDERED: Z GUARD REMEDY 4 OZ OINT TP PRN (20:30)
[2022-02-09] MEDS ORDERED: MORPHINE SULFATE INJ 2 MG/ML DISP.SYRIN IV PRN (20:30)
[2022-02-09] MEDS ORDERED: ONDANSETRON HCL/PF 4 MG/2 ML VIAL IVP PRN (20:30)
[2022-02-09] MEDS: NOREPINEPHRINE 8 MG in IV NS 0.9% 242 ML IV PRN (20:44)
--- NOTE | 2022-02-09 20:52 | NUR ---
REPORT GIVEN TO TYLER DIABETES SPECIALIST FOR EASTON
[2022-02-09] MEDS ORDERED: CEFEPIME 1 GM in IV D5W 50 ML IV SCH (21:00)
--- NOTE | 2022-02-09 21:13 | NUR ---
PT TRANSFERRED TO ICU 261 VIA ACLS PROTOCOL WITH RT. PT ON LEVO DRIP @ 0.2MCG/KG/MIN. AWARE. PT GLASSES WITH PT IN ICU. PT TOLERATED TRANSFER WELL.
[2022-02-09] MEDS: IV NS 0.9% 1,000 ML IV PRN (21:49)
[2022-02-09] MEDS: PANTOPRAZOLE 40 MG VIAL IV SCH (21:52)
[2022-02-09] MEDS: ENOXAPARIN SODIUM 40 MG/0.4 ML DISP.SYRIN SQ SCH (21:59)
[2022-02-09] MEDS: MEROPENEM 500 MG in IV NS 0.9% 50 ML IV SCH (22:18)
--- NOTE | 2022-02-09 23:00 | NUR ---
RN NOTE 2100 ADMITTED PT WITH DIAGNOSIS OF SEPSIS WITH SHOCK SECONDARY TO FACILITY ACQUIRED PNA, UTI. PT WITH TRACH CONNECTED TO VENT, SETTINGS AC 16 TV 500 FIO2 50% P5. O2 SAT AT 99%. PT OPEN EYES TO VERBAL STIMULI, UNABLE TO COMMUNICATE. RECEIVED PT ON LEVOPHED AT 0.2MCG/KG/MIN. TONY ML AND ELENA IV 18G PATENT AND INTACT. GT IN PLACE. BAUMAN IN PLACE, DRAINING CLOUDY URINE OUTPUT. PT WITH MULTIPLE WOUNDS, INITIAL TX DONE. OFFLOADED BONY AREAS. DUE MEDS GIVEN. PT FAMILY CAME TO VISIT PT, TOOK PT EYEGLASS TO HOME. WILL CONTINUE TO MONITOR.
[2022-02-10] VITALS (94 sets, daily range): BP systolic 53–149; BP diastolic 30–92
[2022-02-10] MEDS ORDERED: EPOETIN ALFA-EPBX 10,000 UNIT/ML VIAL SQ SCH (00:30)
[2022-02-10] MEDS ORDERED: MAG HYDROX/AL HYDROX/SIMETH 30 ML UDC GT PRN (00:30)
[2022-02-10] MEDS ORDERED: NA PHOS,M-B/NA PHOS,DI-BA 1 EA ENEMA RC PRN (00:30)
[2022-02-10] MEDS ORDERED: MAGNESIUM HYDROXIDE 30 ML UDC GT PRN (00:30)
[2022-02-10] MEDS ORDERED: BISACODYL SUPP (10 MG) 10 MG/SUPP.RECT SUPP.RECT RC PRN (00:30)
[2022-02-10] MEDS: VITAL AF 1.2 1,000 ML BOTTLE GT SCH (01:36)
[2022-02-10] MEDS: ACETAMINOPHEN 325 MG TABLET MC PRN ×2 (04:18→17:09)
--- NOTE | 2022-02-10 04:20 | NUR ---
RN NOTE NOTED WITH T 101.3. ADMINITERED TYLENOL. WILL CONTINUE TO MONITOR.
[2022-02-10 04:23] LABS: BASOPHILS % (AUTO) 0.3 % (0.0-2.0); HEMATOCRIT 28 % (39-51); HEMOGLOBIN 8.7 g/dL (13.5-17.5); LYMPHOCYTES % (AUTO) 5.2 % (20.0-44.0); MEAN CORPUSCULAR HGB CONC 32 g/dl (31.0-36.0); MEAN CORPUSCULAR VOLUME 80 fL (80-96); MONOCYTES # (AUTO) 1.3 K/uL (0.1-1.30); MONOCYTES % (AUTO) 7.3 % (2.0-12.0); NEUTROPHILS # (AUTO) 16.2 K/uL (1.8-8.9); NEUTROPHILS % (AUTO) 87.2 % (43.0-81.0); PLATELET COUNT (AUTO) 298 K/uL (150-450); RED BLOOD CELL COUNT(AUTO) 3.45 MIL/uL (4.5-6.0); WHITE BLOOD COUNT (AUTO) 18.5 K/uL (4.3-11.0)
[2022-02-10] MEDS: MEROPENEM 500 MG in IV NS 0.9% 50 ML IV SCH ×3 (04:30→21:55)
[2022-02-10 04:57] LABS: CALCIUM, SERUM 9.1 mg/dL (8.5-10.1); CREATININE 1.1 mg/dL (0.6-1.3); MAGNESIUM 2.3 mg/dL (1.8-2.4); PHOSPHORUS 3.5 mg/dL (2.5-4.9); POTASSIUM 3.7 mmol/L (3.5-5.1)
[2022-02-10] MEDS ORDERED: VANCOMYCIN 0.75 GM in IV D5W 250 ML IV SCH (05:00)
[2022-02-10] MEDS: NOREPINEPHRINE 8 MG in IV NS 0.9% 242 ML IV PRN ×2 (05:26→14:49)
--- NOTE | 2022-02-10 07:22 | NUR ---
RN NOTE PT TOLERATING VENT SETTINGS, NOT IN ANY DISTRESS. O2 SAT AT 100 %. PT OPEN EYES TO VERBAL STIMULI. BODY TEMP NOW 100. GT FEEDING TOLERATES WELL. NO RESIDUAL NOTED. KEPT HOB ELEVATED. CHANGED WOUND DRESSING, AWAITING FOR WOUND CONSULT.NOTED WITH MINIMAL BLEEDING FROM TIP OF PENIS SINCE ADMISSION. TURNED AND REPOSITIONED. ENDORSED TO HEMANT FOR EASTON.
--- NOTE | 2022-02-10 07:30 | NUR ---
RN NOTES PT FOUND SEMI FOWLERS DISPLAYING NO S/S OF DISTRESS, FLACC = 0 AND BILATERAL RISE AND FALL OF THE CHEST OBSERVED. R UA ML IS PATIENT AND INTACT. BAUMAN CATH RESERVOIR BELOW PATIENT DRAINING BY GRAVITY. PEG DRESSING IS CLEAN AND DRY. HOB > 30 DEGREES. RN WILL CONTINUE CARE PLAN AND ANTICIPATE NEEDS. SAFETY MEASURES IN PLACE, BED LOCKED AND IN LOWEST POSITION, SIDE RAILS UPX2, CALL LIGHT WITHIN REACH, BED ALARM ARMED.
[2022-02-10 07:48] LABS: ABG OXYGEN SATURATION 98.6 % (92.0-98.5); ABG PCO2 33.7 mmHg (35.0-45.0); ABG PH 7.429 (7.350-7.450); ABG PO2 131.4 mmHg (75.0-100.0); AaDO2 187.2 mmHg; COHb 0.2 % (0.5-1.5); MetHb 0.2 % (0.0-1.5); O2Hb 98.2 % (94.0-97.0); SITE, ABG Right Radial
--- NOTE | 2022-02-10 07:50 | NUR ---
WOUND CARE CONSULT: PT PRESENTS WITH STAGE 4 PRESSURE ULCERS TO BILATERAL BUTTOCKS AND SACRUM WELL INTACT DEEP TISSUE INJURIES TO BILATERAL HEELS, PRESENT ON ADMISSION. RECOMMEND SURGICAL AND DPM CONSULTS. DR FRIEDMAN AND DR HURT TO BE CALLED THIS AM. RECOMMENDATIONS MADE FOR SKIN PROTECTION. DISCUSSED WITH NURSING STAFF. MD IN AGREEMENT WITH PLAN OF CARE. Addendum: 02/10/22 at 0754 by HORACE BABB WNDNU ADDITIONAL: DRY DISCOLORATION NOTED TO LEFT SIDE OF NOSE PRESENT ON ADMISSION.
[2022-02-10] MEDS: DOCUSATE SODIUM LIQ 100 MG/10 ML UDC GT SCH (09:00)
--- NOTE | 2022-02-10 09:00 | NUR ---
RN NOTES COLACE HELD, PT HAS DIARRHEA
[2022-02-10] MEDS: PANTOPRAZOLE 40 MG VIAL IV SCH (09:28)
[2022-02-10] MEDS: ZINC SULFATE 220 MG CAPSULE GT SCH (09:28)
[2022-02-10] MEDS: SERTRALINE HCL 25 MG TABLET GT SCH (09:29)
[2022-02-10] MEDS: POTASSIUM CHLORIDE 20 MEQ POWDER PACKET GT SCH (09:29)
[2022-02-10] MEDS: MULTIVITAMINS,THERAGRAN 1 UDTAB TABLET GT SCH (09:29)
[2022-02-10] MEDS: FERROUS SULFATE UDC 300 MG/5 ML UDC GT SCH ×2 (09:29→17:09)
[2022-02-10] MEDS: MIDODRINE HCL (5MG) 5 MG TABLET GT SCH ×3 (09:29→17:08)
[2022-02-10] MEDS: CHLORHEXIDINE GLUCONATE 15 ML UDC MM SCH ×2 (09:30→17:09)
[2022-02-10] MEDS: QUETIAPINE FUMARATE 25 MG TABLET GT SCH (09:30)
[2022-02-10] MEDS: PROSOURCE / PROSTAT (PYXIS) 30 ML UDC GT SCH (09:31)
[2022-02-10] MEDS: IV NS 0.9% 1,000 ML IV PRN (13:25)
[2022-02-10] MEDS: EPOETIN ALFA-EPBX 10,000 UNIT/ML VIAL SQ SCH (14:06)
[2022-02-10] MEDS: VANCOMYCIN 1 GM in IV D5W 250 ML IV SCH (17:12)
--- NOTE | 2022-02-10 19:20 | NUR ---
RN NOTES PT FOUND SEMI FOWLERS DISPLAYING NO S/S OF DISTRESS, FLACC = 0 AND BILATERAL RISE AND FALL OF THE CHEST OBSERVED. R UA ML IS PATIENT AND INTACT. BAUMAN CATH RESERVOIR BELOW PATIENT DRAINING BY GRAVITY. PEG DRESSING IS CLEAN AND DRY. HOB > 30 DEGREES. SBAR AND REPORT GIVEN TO BAG INSPECTOR RN, ALL QUESTIONS ANSWERED. SAFETY MEASURES IN PLACE, BED LOCKED AND IN LOWEST POSITION, SIDE RAILS UPX2, CALL LIGHT WITHIN REACH, BED ALARM ARMED. PT ENDORSED IN STABLE CONDITION FOR EASTON.
--- NOTE | 2022-02-10 19:36 | NUR ---
sustainable agriculture specialist. initial assessment. received the pt rest in bed. trach to vent connected, portex#7,ac 16,tv 450, fio2 40%. sat 97%, no acute distress noted. cardiac rehab nurse showing nsr. iv rt upper arm mid line. levophed 0.06mcg/kg/min,ivf ns 75 ml/h. fc patent. pt is nonverbal. gt intact. vitals 65 ml/h. multiple wound present on admission. will continue to monitor vitals.
--- NOTE | 2022-02-10 21:31 | NUR ---
RECEIVED PT TRACH PORTEX 7 ON [facility] VENT. PT IS AWAKE NO RESP DISTRESS. SX'D MODERATE AMT OF THICK WHITE SECRETIONS. VENT ALARMS SET AND AUDIBLE. TRACH IS SECURED AND CUFF CHECKED. CONTINUE TO MONITOR. Addendum: 02/10/22 at 2133 by CLAUDIA KHAN RT Amended: Links added.
[2022-02-10] MEDS: ENOXAPARIN SODIUM 40 MG/0.4 ML DISP.SYRIN SQ SCH (21:55)
[2022-02-11] VITALS (95 sets, daily range): BP systolic 69–126; BP diastolic 36–84
[2022-02-11] MEDS: ACETAMINOPHEN ES 500 MG TABLET GT PRN (02:57)
[2022-02-11] MEDS: VITAL AF 1.2 1,000 ML BOTTLE GT SCH (02:59)
[2022-02-11 05:02] LABS: BASOPHILS # (AUTO) 0.1 K/uL (0.0-0.2); BASOPHILS % (AUTO) 0.6 % (0.0-2.0); EOSINOPHILS % (AUTO) 0.2 % (0.0-6.0); HEMATOCRIT 27 % (39-51); HEMOGLOBIN 8.5 g/dL (13.5-17.5); LYMPHOCYTES # (AUTO) 1.3 K/uL (0.8-4.8); MEAN CORPUSCULAR HGB CONC 31 g/dl (31.0-36.0); MEAN CORPUSCULAR VOLUME 81 fL (80-96); MONOCYTES # (AUTO) 1.2 K/uL (0.1-1.30); MONOCYTES % (AUTO) 11.2 % (2.0-12.0); NEUTROPHILS # (AUTO) 8.4 K/uL (1.8-8.9); PLATELET COUNT (AUTO) 262 K/uL (150-450); RED BLOOD CELL COUNT(AUTO) 3.34 MIL/uL (4.5-6.0)
[2022-02-11] MEDS: MEROPENEM 500 MG in IV NS 0.9% 50 ML IV SCH ×3 (05:04→20:37)
[2022-02-11] MEDS: IV NS 0.9% 1,000 ML IV PRN ×2 (05:15→20:39)
[2022-02-11 05:18] LABS: CALCIUM, SERUM 8.8 mg/dL (8.5-10.1); CREATININE 0.6 mg/dL (0.6-1.3); POTASSIUM 3.7 mmol/L (3.5-5.1)
--- NOTE | 2022-02-11 05:45 | NUR ---
SLAT BASKET MAKER HELPER MACHINE. AM CARE GIVEN. REMAINING SAME VENT SETTINGS TOLERATED WELL. SAT 98%. NO ACUTE DISTRESS NOTED. PULMONOLOGIST SHOWING V PACING. GT FEEDING TOLERATED WELL. FC PATENT, URINE DRAINING. HOB ELEVATED. TURN AND REPOSITION Q2H. WILL CONTINUE TO MONITOR VITALS.
[2022-02-11] MEDS: VANCOMYCIN 1 GM in IV D5W 250 ML IV SCH (05:58)
--- NOTE | 2022-02-11 07:30 | NUR ---
RN NOTES PT FOUND SEMI FOWLERS DISPLAYING NO S/S OF DISTRESS, FLACC = 0 AND BILATERAL RISE AND FALL OF THE CHEST OBSERVED. PT REQUIRED EXTENSIVE SUCTIONING TO MAINTAIN PATENT AIRWAY. R UA ML IS PATIENT AND INTACT. BAUMAN CATH RESERVOIR BELOW PATIENT DRAINING BY GRAVITY. PEG DRESSING IS CLEAN AND DRY. HOB > 30 DEGREES. RN WILL CONTINUE CARE PLAN AND ANTICIPATE NEEDS. SAFETY MEASURES IN PLACE, BED LOCKED AND IN LOWEST POSITION, SIDE RAILS UPX2, CALL LIGHT WITHIN REACH, BED ALARM ARMED.
[2022-02-11] MEDS: CHLORHEXIDINE GLUCONATE 15 ML UDC MM SCH ×2 (08:51→16:35)
[2022-02-11] MEDS: QUETIAPINE FUMARATE 25 MG TABLET GT SCH (08:51)
[2022-02-11] MEDS: FERROUS SULFATE UDC 300 MG/5 ML UDC GT SCH ×2 (08:51→16:35)
[2022-02-11] MEDS: POTASSIUM CHLORIDE 20 MEQ POWDER PACKET GT SCH (08:51)
[2022-02-11] MEDS: PANTOPRAZOLE 40 MG/PACK PACK GT SCH (08:51)
[2022-02-11] MEDS: SERTRALINE HCL 25 MG TABLET GT SCH (08:51)
[2022-02-11] MEDS: MIDODRINE HCL (5MG) 5 MG TABLET GT SCH ×3 (08:51→16:35)
[2022-02-11] MEDS: ZINC SULFATE 220 MG CAPSULE GT SCH (08:51)
[2022-02-11] MEDS: PROSOURCE / PROSTAT (PYXIS) 30 ML UDC GT SCH (08:51)
[2022-02-11] MEDS: MULTIVITAMINS,THERAGRAN 1 UDTAB TABLET GT SCH (08:51)
[2022-02-11] MEDS: DOCUSATE SODIUM LIQ 100 MG/10 ML UDC GT SCH (08:52)
--- NOTE | 2022-02-11 08:52 | NUR ---
NURSING NOTES COLACE HELD, ROAD DESIGN ENGINEER REPORTS ONGOING DIARRHEA.
[2022-02-11] MEDS: NOREPINEPHRINE 8 MG in IV NS 0.9% 242 ML IV PRN (12:00)
[2022-02-11] MEDS: VANCOMYCIN 0.75 GM in IV D5W 250 ML IV SCH (16:35)
--- NOTE | 2022-02-11 19:15 | NUR ---
RN NOTES PT FOUND SEMI FOWLERS DISPLAYING NO S/S OF DISTRESS, FLACC = 0 AND BILATERAL RISE AND FALL OF THE CHEST OBSERVED. R UA ML IS PATIENT AND INTACT. BAUMAN CATH RESERVOIR BELOW PATIENT DRAINING BY GRAVITY. PEG DRESSING IS CLEAN AND DRY. HOB > 30 DEGREES. SBAR AND REPORT GIVEN TO VENEER MARKER RN, ALL QUESTIONS ANSWERED. SAFETY MEASURES IN PLACE, BED LOCKED AND IN LOWEST POSITION, SIDE RAILS UPX3, CALL LIGHT WITHIN REACH, BED ALARM ARMED. PT ENDORSED IN STABLE CONDITION FOR EASTON.
--- NOTE | 2022-02-11 19:35 | NUR ---
ICU/CLIENT SERVICES DIRECTOR LOW BLOOD PRESSURE IN THE 70'S THROUGH X2 CYCLES, INCREASED LEVO TO 0.04 BY CAFETERIA MANAGER NURSE. WILL CONTINUE TO MONITOR THIS PT'S BLOOD PRESSURE.
--- NOTE | 2022-02-11 20:04 | NUR ---
RECEIVED PT TRACH PORTEX 7 ON MECH VENT WITH THE SETTINGS OF AC 16 ,VT 450, FIO2 40%. PT TOLERATING VENT SETTINGS. PT IS AWAKE AND NO RESP DISTRESS NOTED AT THIS TIME.. SX'D MODERATE AMT OF THICK WHITE SECRETIONS. VENT PLUGGED INTO RED OUTLET . VENT ALARMS SET AND AUDIBLE. TRACH IS SECURED AND CUFF CHECKED. WILL CONTINUE TO MONITOR T/O SHIFT.
[2022-02-11] MEDS: ENOXAPARIN SODIUM 40 MG/0.4 ML DISP.SYRIN SQ SCH (20:40)
[2022-02-12] VITALS (97 sets, daily range): BP systolic 74–142; BP diastolic 40–91
--- NOTE | 2022-02-12 00:30 | NUR ---
ICU/SUPERVISOR PLASTICS LOW BLOOD PRESSURE IN THE 70'S-80'S THROUGH X2 CYCLES, INCREASED LEVO TO 0.06 BY DIESEL POWERPLANT SUPERVISOR NURSE. WILL CONTINUE TO MONITOR THIS PT'S BLOOD PRESSURE.
--- NOTE | 2022-02-12 01:48 | NUR ---
ICU/STONE CRUSHER OPERATOR FAMILY CALLED GAVE THEM AN UPDATE.
[2022-02-12] MEDS: VANCOMYCIN 0.75 GM in IV D5W 250 ML IV SCH ×2 (04:11→18:25)
[2022-02-12] MEDS: MEROPENEM 500 MG in IV NS 0.9% 50 ML IV SCH ×3 (04:12→20:53)
[2022-02-12 04:38] LABS: BASOPHILS % (AUTO) 0.6 % (0.0-2.0); HEMATOCRIT 27 % (39-51); HEMOGLOBIN 8.6 g/dL (13.5-17.5); LYMPHOCYTES # (AUTO) 1.4 K/uL (0.8-4.8); MEAN CORPUSCULAR HGB CONC 32 g/dl (31.0-36.0); MEAN CORPUSCULAR VOLUME 79 fL (80-96); MONOCYTES # (AUTO) 0.8 K/uL (0.1-1.30); MONOCYTES % (AUTO) 10.9 % (2.0-12.0); NEUTROPHILS # (AUTO) 4.8 K/uL (1.8-8.9); NEUTROPHILS % (AUTO) 65.5 % (43.0-81.0); PLATELET COUNT (AUTO) 230 K/uL (150-450); WHITE BLOOD COUNT (AUTO) 7.3 K/uL (4.3-11.0)
[2022-02-12 04:48] LABS: CALCIUM, SERUM 8.8 mg/dL (8.5-10.1); CREATININE 0.5 mg/dL (0.6-1.3); POTASSIUM 3.1 mmol/L (3.5-5.1)
[2022-02-12] MEDS: VITAL AF 1.2 1,000 ML BOTTLE GT SCH (04:55)
--- NOTE | 2022-02-12 07:30 | NUR ---
OPENING NOTE: REPORT RECEIVED FROM CAHNO TREVINO. ORDERS AND LABS REVIEWED DURING REPORT. CHRONIC TRACH/VENT PATIENT. PT ON LEVOPHED GTT PER MD ORDERS. PT ABLE TO NOD AND SHAKE HEAD YES AND NO TO SIMPLE QUESTIONS. PT CHECKED ON HOURLY AND PRN BY NURSING STAFF.
[2022-02-12] MEDS: POTASSIUM CL. PREMIX PERIPHER. 50 ML IV SCH ×5 (08:16→13:20)
[2022-02-12] MEDS: PROSOURCE / PROSTAT (PYXIS) 30 ML UDC GT SCH (09:00)
[2022-02-12] MEDS ORDERED: POTASSIUM CL. PREMIX PERIPHER. 50 ML IV SCH (09:00)
[2022-02-12] MEDS: DOCUSATE SODIUM LIQ 100 MG/10 ML UDC GT SCH (09:00)
[2022-02-12] MEDS: POTASSIUM CHLORIDE 20 MEQ POWDER PACKET GT SCH (09:17)
[2022-02-12] MEDS: ZINC SULFATE 220 MG CAPSULE GT SCH (09:17)
[2022-02-12] MEDS: MULTIVITAMINS,THERAGRAN 1 UDTAB TABLET GT SCH (09:17)
[2022-02-12] MEDS: FERROUS SULFATE UDC 300 MG/5 ML UDC GT SCH ×2 (09:17→18:26)
[2022-02-12] MEDS: QUETIAPINE FUMARATE 25 MG TABLET GT SCH (09:18)
[2022-02-12] MEDS: CHLORHEXIDINE GLUCONATE 15 ML UDC MM SCH ×2 (09:18→18:26)
[2022-02-12] MEDS: MIDODRINE HCL (5MG) 5 MG TABLET GT SCH ×3 (09:18→18:26)
[2022-02-12] MEDS: SERTRALINE HCL 25 MG TABLET GT SCH (09:18)
[2022-02-12] MEDS: PANTOPRAZOLE 40 MG/PACK PACK GT SCH (09:18)
[2022-02-12] MEDS: NOREPINEPHRINE 8 MG in IV NS 0.9% 242 ML IV PRN ×2 (09:20→18:26)
[2022-02-12] MEDS: IV NS 0.9% 250 ML IV PRN (13:20)
[2022-02-12] MEDS: IV NS 0.9% 1,000 ML IV PRN (13:20)
[2022-02-12] MEDS: EPOETIN ALFA-EPBX 10,000 UNIT/ML VIAL SQ SCH (15:19)
--- NOTE | 2022-02-12 19:07 | NUR ---
END OF SHIFT NOTE: PT HAD AN UNEVENTFUL SHIFT. LEVOPHED CONTINUES TO INFUSE AT 0.06 MCG.KG.MIN PER MD ORDERS. 50 MEQ POTASSIUM IV GIVEN PER MD ORDERS. PT CHECKED ON HOURLY AND PRN BY NURSING STAFF.
[2022-02-12] MEDS: ENOXAPARIN SODIUM 40 MG/0.4 ML DISP.SYRIN SQ SCH (20:53)
[2022-02-12] MEDS: ACETAMINOPHEN ES 500 MG TABLET GT PRN (22:30)
--- NOTE | 2022-02-12 22:45 | NUR ---
ICU/LAYAWAY CLERK TYLENOL ES WAS GIVEN FOR INCREASE TEMP. AND FLACC OF 7-10. PT WAS TURNED AND REPOSITIONED FOR COMFORT AND CARE
[2022-02-13] VITALS (95 sets, daily range): BP systolic 51–141; BP diastolic 26–91
[2022-02-13] MEDS: IV NS 0.9% 1,000 ML IV PRN ×2 (02:19→15:55)
[2022-02-13] MEDS: VITAL AF 1.2 1,000 ML BOTTLE GT SCH ×2 (04:00→06:36)
[2022-02-13 05:03] LABS: BASOPHILS # (AUTO) 0.1 K/uL (0.0-0.2); BASOPHILS % (AUTO) 0.8 % (0.0-2.0); EOSINOPHILS % (AUTO) 8.9 % (0.0-6.0); HEMATOCRIT 29 % (39-51); HEMOGLOBIN 8.9 g/dL (13.5-17.5); LYMPHOCYTES # (AUTO) 1.8 K/uL (0.8-4.8); LYMPHOCYTES % (AUTO) 27.1 % (20.0-44.0); MEAN CORPUSCULAR HGB CONC 32 g/dl (31.0-36.0); MEAN CORPUSCULAR VOLUME 79 fL (80-96); MONOCYTES # (AUTO) 0.5 K/uL (0.1-1.30); MONOCYTES % (AUTO) 8.2 % (2.0-12.0); NEUTROPHILS # (AUTO) 3.6 K/uL (1.8-8.9); PLATELET COUNT (AUTO) 222 K/uL (150-450); RED BLOOD CELL COUNT(AUTO) 3.59 MIL/uL (4.5-6.0); WHITE BLOOD COUNT (AUTO) 6.6 K/uL (4.3-11.0)
[2022-02-13] MEDS: MEROPENEM 500 MG in IV NS 0.9% 50 ML IV SCH ×3 (05:17→21:30)
[2022-02-13 05:26] LABS: CALCIUM, SERUM 8.9 mg/dL (8.5-10.1); CREATININE 0.4 mg/dL (0.6-1.3); POTASSIUM 3.5 mmol/L (3.5-5.1)
[2022-02-13] MEDS: VANCOMYCIN 0.75 GM in IV D5W 250 ML IV SCH (05:40)
--- NOTE | 2022-02-13 07:30 | NUR ---
RN NOTES PT FOUND SEMI FOWLERS DISPLAYING NO S/S OF DISTRESS, FLACC = 0 AND BILATERAL RISE AND FALL OF THE CHEST OBSERVED. R UA ML IS PATIENT AND INTACT. BAUMAN CATH RESERVOIR BELOW PATIENT DRAINING BY GRAVITY. PEG DRESSING IS CLEAN AND DRY. HOB > 30 DEGREES. RN WILL CONTINUE CARE PLAN AND ANTICIPATE NEEDS. SAFETY MEASURES IN PLACE, BED LOCKED AND IN LOWEST POSITION, SIDE RAILS UPX3, CALL LIGHT WITHIN REACH, BED ALARM ARMED.
[2022-02-13] MEDS: DOCUSATE SODIUM LIQ 100 MG/10 ML UDC GT SCH (08:49)
[2022-02-13] MEDS: POTASSIUM CHLORIDE 20 MEQ POWDER PACKET GT SCH (08:54)
[2022-02-13] MEDS: ZINC SULFATE 220 MG CAPSULE GT SCH (08:54)
[2022-02-13] MEDS: SERTRALINE HCL 25 MG TABLET GT SCH (08:54)
[2022-02-13] MEDS: FERROUS SULFATE UDC 300 MG/5 ML UDC GT SCH ×2 (08:54→16:43)
[2022-02-13] MEDS: QUETIAPINE FUMARATE 25 MG TABLET GT SCH (08:55)
[2022-02-13] MEDS: MULTIVITAMINS,THERAGRAN 1 UDTAB TABLET GT SCH (08:55)
[2022-02-13] MEDS: MIDODRINE HCL (5MG) 5 MG TABLET GT SCH ×3 (08:55→16:44)
[2022-02-13] MEDS: CHLORHEXIDINE GLUCONATE 15 ML UDC MM SCH ×2 (08:55→16:43)
[2022-02-13] MEDS: PANTOPRAZOLE 40 MG/PACK PACK GT SCH (08:55)
[2022-02-13] MEDS: PROSOURCE / PROSTAT (PYXIS) 30 ML UDC GT SCH (08:56)
--- NOTE | 2022-02-13 11:00 | NUR ---
MD VISIT DR JERRY PERFORMED ROUNDS, RN INFORMED MD OF PT THICK SECRETIONS. MD GAVE ORDERS: ALBUTEROL 2.5 MG NEB Q6H. RN ACKNOWLEDGED AND WILL ENTER ORDERS DIRECTED.
[2022-02-13] MEDS: ALBUTEROL FS 2.5 MG/3 ML VIAL.NEB NEB SCH ×3 (12:00→19:34)
--- NOTE | 2022-02-13 12:54 | NUR ---
DOUBLE ENTRY ON ALBUTEROL. Addendum: 02/13/22 at 1255 by EDWIGE MYERS RT Amended: Links added.
--- NOTE | 2022-02-13 19:10 | NUR ---
RN NOTES PT FOUND SEMI FOWLERS DISPLAYING NO S/S OF DISTRESS, FLACC = 0 AND BILATERAL RISE AND FALL OF THE CHEST OBSERVED. R UA ML IS PATIENT AND INTACT. BAUMAN CATH RESERVOIR BELOW PATIENT DRAINING BY GRAVITY. PEG DRESSING IS CLEAN AND DRY. HOB > 30 DEGREES. SBAR AND REPORT GIVEN TO OFFSET PLATE PREPARATION SUPERVISOR, ALL QUESTIONS ANSWERED. SAFETY MEASURES IN PLACE, BED LOCKED AND IN LOWEST POSITION, SIDE RAILS UPX3, CALL LIGHT WITHIN REACH, BED ALARM ARMED. PT ENDORSED IN STABLE CONDITION FOR E[facility]ON.
[2022-02-13] MEDS: ENOXAPARIN SODIUM 40 MG/0.4 ML DISP.SYRIN SQ SCH (20:43)
[2022-02-14] VITALS (92 sets, daily range): BP systolic 72–146; BP diastolic 36–86
[2022-02-14] MEDS: NOREPINEPHRINE 8 MG in IV NS 0.9% 242 ML IV PRN ×2 (00:24→23:37)
[2022-02-14] MEDS: ALBUTEROL FS 2.5 MG/3 ML VIAL.NEB NEB SCH ×4 (01:47→19:54)
[2022-02-14] MEDS: VITAL AF 1.2 1,000 ML BOTTLE GT SCH ×2 (04:00→05:52)
[2022-02-14] MEDS: MEROPENEM 500 MG in IV NS 0.9% 50 ML IV SCH ×2 (04:29→12:34)
[2022-02-14 05:08] LABS: BASOPHILS % (AUTO) 0.4 % (0.0-2.0); EOSINOPHILS % (AUTO) 5.6 % (0.0-6.0); HEMATOCRIT 29 % (39-51); HEMOGLOBIN 9.4 g/dL (13.5-17.5); LYMPHOCYTES # (AUTO) 1.9 K/uL (0.8-4.8); LYMPHOCYTES % (AUTO) 23.2 % (20.0-44.0); MEAN CORPUSCULAR HGB CONC 32 g/dl (31.0-36.0); MEAN CORPUSCULAR VOLUME 79 fL (80-96); MONOCYTES # (AUTO) 0.5 K/uL (0.1-1.30); MONOCYTES % (AUTO) 6.6 % (2.0-12.0); NEUTROPHILS # (AUTO) 5.2 K/uL (1.8-8.9); NEUTROPHILS % (AUTO) 64.2 % (43.0-81.0); PLATELET COUNT (AUTO) 245 K/uL (150-450); RED BLOOD CELL COUNT(AUTO) 3.75 MIL/uL (4.5-6.0); WHITE BLOOD COUNT (AUTO) 8.1 K/uL (4.3-11.0)
[2022-02-14 05:29] LABS: CREATININE 0.4 mg/dL (0.6-1.3); POTASSIUM 3.3 mmol/L (3.5-5.1)
[2022-02-14] MEDS: IV NS 0.9% 1,000 ML IV PRN (05:52)
--- NOTE | 2022-02-14 08:00 | NUR ---
rn notes received patient total care, contracted, on trachea/vend dependent setting is ac-16, fio2-40%. patient tolerating setting well. awake, understand commands. infusing Levophed 0.04mcg/kg/min, and ns @75 ml/hr. no residual on GTF, running vital 1.2 @65 ml/hr. assist turn and reposition q 2 hr. replacing kcl @200mls. moreno draining via gravity. call light within to reach. will follow up.
[2022-02-14] MEDS: POTASSIUM CL. PREMIX PERIPHER. 50 ML IV SCH ×4 (08:50→12:15)
[2022-02-14] MEDS: FERROUS SULFATE UDC 300 MG/5 ML UDC GT SCH ×2 (09:40→16:57)
[2022-02-14] MEDS: DOCUSATE SODIUM LIQ 100 MG/10 ML UDC GT SCH (09:40)
[2022-02-14] MEDS: PANTOPRAZOLE 40 MG/PACK PACK GT SCH (09:40)
[2022-02-14] MEDS: CHLORHEXIDINE GLUCONATE 15 ML UDC MM SCH ×2 (09:40→16:58)
[2022-02-14] MEDS: POTASSIUM CHLORIDE 20 MEQ POWDER PACKET GT SCH (09:40)
[2022-02-14] MEDS: QUETIAPINE FUMARATE 25 MG TABLET GT SCH (09:41)
[2022-02-14] MEDS: SERTRALINE HCL 25 MG TABLET GT SCH (09:41)
[2022-02-14] MEDS: ZINC SULFATE 220 MG CAPSULE GT SCH (09:41)
[2022-02-14] MEDS: MIDODRINE HCL (5MG) 5 MG TABLET GT SCH ×3 (09:41→16:57)
[2022-02-14] MEDS: MULTIVITAMINS,THERAGRAN 1 UDTAB TABLET GT SCH (09:41)
[2022-02-14] MEDS: PROSOURCE / PROSTAT (PYXIS) 30 ML UDC GT SCH (09:42)
[2022-02-14] MEDS ORDERED: SULFAMETHOXAZOLE/TRIMETHOPRIM 20 ML in IV D5W 500 ML IV SCH (13:00)
[2022-02-14] MEDS: MEROPENEM 1,000 MG in IV NS 0.9% 50 ML IV SCH ×2 (14:14→20:36)
[2022-02-14] MEDS: SULFAMETHOXAZOLE/TRIMETHOPRIM 20 ML in IV D5W 500 ML IV SCH ×2 (16:57→23:37)
--- NOTE | 2022-02-14 18:00 | NUR ---
RN NOTES PM CARE DONE, SUCTION, MOUTH CARE. PATIENT HAS CONTACT ISOLATION BECAUSE OF RESPIRATORY, NO RESIDUAL, vend setting is ac-16, fio2-40%. awake, understand commands. infusing Levophed 0.02mcg/kg/min, and ns @75 ml/hr running vital 1.2 @ 65 ML/HR, assist turn and reposition q 2 hr. urine output was 2400 ml. family next to the bed. Endorsed oncoming nurse federico.
[2022-02-14] MEDS: ENOXAPARIN SODIUM 40 MG/0.4 ML DISP.SYRIN SQ SCH (20:36)
[2022-02-15] VITALS (104 sets, daily range): BP systolic 53–154; BP diastolic 35–103
[2022-02-15] MEDS: IV NS 0.9% 1,000 ML IV PRN ×2 (00:01→17:12)
[2022-02-15] MEDS: IV NS 0.9% 250 ML IV PRN ×2 (00:02→17:13)
[2022-02-15] MEDS: ALBUTEROL FS 2.5 MG/3 ML VIAL.NEB NEB SCH ×4 (01:32→20:03)
[2022-02-15] MEDS: VITAL AF 1.2 1,000 ML BOTTLE GT SCH ×4 (04:00→23:25)
[2022-02-15] MEDS: MEROPENEM 1,000 MG in IV NS 0.9% 50 ML IV SCH ×3 (05:17→20:46)
[2022-02-15] MEDS: SULFAMETHOXAZOLE/TRIMETHOPRIM 20 ML in IV D5W 500 ML IV SCH ×3 (08:00→23:29)
--- NOTE | 2022-02-15 08:00 | NUR ---
RN NOTES received patient on trachea/ vend dependent, setting is ac-16, fio2-40%, peep-5. patient eyes is open, awake, follows command. infusing Levophed 0.04mcg/kg/min, and ns @75 ml/hr running vital 1.2 @ 65 ML/HR, no residual, due medication administered as ordered via GT, assist turn and reposition q 2 hr. urine draining via gravity, no acute respiratory distress, suction, mouth care done. will follow up.
[2022-02-15] MEDS: ZINC SULFATE 220 MG CAPSULE GT SCH (08:29)
[2022-02-15] MEDS: FERROUS SULFATE UDC 300 MG/5 ML UDC GT SCH ×2 (08:29→17:06)
[2022-02-15] MEDS: MULTIVITAMINS,THERAGRAN 1 UDTAB TABLET GT SCH (08:29)
[2022-02-15] MEDS: POTASSIUM CHLORIDE 20 MEQ POWDER PACKET GT SCH (08:29)
[2022-02-15] MEDS: PANTOPRAZOLE 40 MG/PACK PACK GT SCH (08:29)
[2022-02-15] MEDS: DOCUSATE SODIUM LIQ 100 MG/10 ML UDC GT SCH (08:29)
[2022-02-15] MEDS: CHLORHEXIDINE GLUCONATE 15 ML UDC MM SCH ×2 (08:29→17:07)
[2022-02-15] MEDS: MIDODRINE HCL (5MG) 5 MG TABLET GT SCH ×3 (08:30→17:07)
[2022-02-15] MEDS: SERTRALINE HCL 25 MG TABLET GT SCH (08:30)
[2022-02-15] MEDS: QUETIAPINE FUMARATE 25 MG TABLET GT SCH (08:30)
[2022-02-15] MEDS: PROSOURCE / PROSTAT (PYXIS) 30 ML UDC GT SCH (08:41)
--- NOTE | 2022-02-15 12:40 | NUR ---
rn notes get new order via hob machine operator increase gtf @75 ml/hr 24 hr. order taken and carried out.
[2022-02-15 14:27] LABS: BASOPHILS % (AUTO) 0.3 % (0.0-2.0); EOSINOPHILS % (AUTO) 4.6 % (0.0-6.0); HEMATOCRIT 28 % (39-51); LYMPHOCYTES # (AUTO) 1.5 K/uL (0.8-4.8); LYMPHOCYTES % (AUTO) 15.2 % (20.0-44.0); MEAN CORPUSCULAR HGB CONC 32 g/dl (31.0-36.0); MEAN CORPUSCULAR VOLUME 81 fL (80-96); MONOCYTES # (AUTO) 0.7 K/uL (0.1-1.30); MONOCYTES % (AUTO) 7.2 % (2.0-12.0); NEUTROPHILS # (AUTO) 7.2 K/uL (1.8-8.9); NEUTROPHILS % (AUTO) 72.7 % (43.0-81.0); PLATELET COUNT (AUTO) 228 K/uL (150-450); RED BLOOD CELL COUNT(AUTO) 3.51 MIL/uL (4.5-6.0); WHITE BLOOD COUNT (AUTO) 9.8 K/uL (4.3-11.0)
[2022-02-15] MEDS: EPOETIN ALFA-EPBX 10,000 UNIT/ML VIAL SQ SCH (17:06)
--- NOTE | 2022-02-15 18:45 | NUR ---
RN NOTES SUCTION, MOUTH CARE DONE, DUE MEDICATION ADMINISTERED, TITRATED LEVOPHED PER PROTOCOL 0.03 MCG/KG/MIN, AND NS@75 ML/HR. URINE OUTPUT WAS 1800ML, ASSIST TURN AND REPOSTION Q 2 HR., FAMILY NEXT TO THE BED. NO ACUTE RESPIRATORY DISTRESS. ENDORSED ONCOMING NURSE FOLLOW PLAN OF CARE.
[2022-02-15] MEDS ORDERED: POTASSIUM CHLORIDE 20 MEQ POWDER PACKET GT ONE (19:30)
--- NOTE | 2022-02-15 20:00 | NUR ---
Rn Notes Received patient, asleep, arouses to verbal stimuli, on mechanical ventilator, tolerated settings well, on Levophed 0.03mcg/kg/min, to mantained the blood pressure, NS @75 ml/hr both infusing well and patient tolerated well, GTF in place, no residual noted, running vital 1.2 @75 ml/hr, f/c in place, draining by gravity, patency intact, call light within to reach, s/s of bed up x3, alarm on, will continue to monitor closely.
[2022-02-15] MEDS: ENOXAPARIN SODIUM 40 MG/0.4 ML DISP.SYRIN SQ SCH (20:46)
[2022-02-16] VITALS (93 sets, daily range): BP systolic 69–147; BP diastolic 41–86
--- NOTE | 2022-02-16 | NUR ---
yaakovin's solution not available, CN aware, will do tx in am.
[2022-02-16] MEDS: ALBUTEROL FS 2.5 MG/3 ML VIAL.NEB NEB SCH ×4 (02:20→19:56)
[2022-02-16] MEDS: NOREPINEPHRINE 8 MG in IV NS 0.9% 242 ML IV PRN (03:07)
[2022-02-16] MEDS: MEROPENEM 1 G in IV NS 0.9% 100 ML IV SCH ×3 (05:04→20:55)
--- NOTE | 2022-02-16 06:42 | NUR ---
RN CLOSING NOTES, patient, asleep, arouses to verbal stimuli, continue on mechanical ventilator, tolerated settings well, on 35% fio2 now, on Levophed 0.03mcg/kg/min, to mantained the blood pressure, same rate unable to titrate down, the last 2 hours sbp 80s-90s, NS @75 ml/hr both infusing well and patient tolerated well, GTF in place, no residual noted during the night, running vital 1.2 @75 ml/hr, f/c in place, draining by gravity, patency intact with good urinary output, 1 bowel movement last night, call light within to reach, s/s of bed up x3, alarm on, wound tx done, reposition q2h an dprn, succioning provided as needed, will endorse continuity of care to oncoming nurse.
--- NOTE | 2022-02-16 08:00 | NUR ---
rn notes patient continue on mechanical ventilator,patient awake, follows command, tolerated settings well, fio2- 35%, bedside monitor shows 96%. no acute respiratory distress, infusing NS @75 ml/hr, and Levophed 0.03 mcg/kg/min. monitoring lab values. GTF in place, no residual noted running vital 1.2 @75 ml/hr, Demarco draining by gravity, with light yellow output. reposition q2h, due medication administered, will follow up.
[2022-02-16] MEDS: SULFAMETHOXAZOLE/TRIMETHOPRIM 20 ML in IV D5W 500 ML IV SCH ×3 (08:18→23:27)
[2022-02-16] MEDS: DOCUSATE SODIUM LIQ 100 MG/10 ML UDC GT SCH (08:53)
[2022-02-16] MEDS: FERROUS SULFATE UDC 300 MG/5 ML UDC GT SCH ×2 (08:53→17:35)
[2022-02-16] MEDS: CHLORHEXIDINE GLUCONATE 15 ML UDC MM SCH ×2 (08:53→17:35)
[2022-02-16] MEDS: PANTOPRAZOLE 40 MG/PACK PACK GT SCH (08:54)
[2022-02-16] MEDS: ZINC SULFATE 220 MG CAPSULE GT SCH (08:54)
[2022-02-16] MEDS: POTASSIUM CHLORIDE 20 MEQ POWDER PACKET GT SCH (08:54)
[2022-02-16] MEDS: SERTRALINE HCL 25 MG TABLET GT SCH (08:54)
[2022-02-16] MEDS: MULTIVITAMINS,THERAGRAN 1 UDTAB TABLET GT SCH (08:54)
[2022-02-16] MEDS: QUETIAPINE FUMARATE 25 MG TABLET GT SCH (08:54)
[2022-02-16] MEDS: MIDODRINE HCL (5MG) 5 MG TABLET GT SCH ×3 (08:55→17:41)
[2022-02-16] MEDS: PROSOURCE / PROSTAT (PYXIS) 30 ML UDC GT SCH (08:55)
[2022-02-16] MEDS: DAKINS QUARTER STRENGTH (0.125%) 480 ML BOTTLE TOP SCH ×2 (08:56)
[2022-02-16 12:55] LABS: ALBUMIN 2.5 g/dL (3.4-5.0); BILIRUBIN,DIRECT 0.1 mg/dL (0.0-0.2); BILIRUBIN,TOTAL 0.3 mg/dL (0.2-1.0); TOTAL PROTEIN, SERUM 6.5 g/dL (6.4-8.2)
[2022-02-16] MEDS ORDERED: SIMETHICONE 80 MG TAB.CHEW PO PRN (13:00)
[2022-02-16] MEDS: IV NS 0.9% 1,000 ML IV PRN (13:04)
--- NOTE | 2022-02-16 15:45 | NUR ---
RN NOTES WOUND DEBRIDEMENT DONE VIA STACEY WARD, PATIENT STABLE, CONSENT FORM WAS SIGNED VIA . FAMILY NEX TO THE BED .
[2022-02-16] MEDS: HYDROCORTISONE SOD SUCCINATE 100 MG/2 ML VIAL IV SCH ×2 (15:48→20:55)
--- NOTE | 2022-02-16 18:15 | NUR ---
rn notes patient stable , no acute respiratory stress, due medication administered, suction, mouth care done. assist turn and reposition q 2 hr. titrated Levophed per protocol 0.03 mcg/kg/min at this time, also infusing ns @75ml/hr. urine output was 2200ml, endorsed oncoming nurse federico.
--- NOTE | 2022-02-16 19:30 | NUR ---
Rn Notes Received patient, asleep, arouses to verbal stimuli, on mechanical ventilator, tolerated settings well, received on Levophed 0.03mcg/kg/min, to mantained the blood pressure, NS @75 ml/hr both infusing well and patient tolerated well, s/p debriedement of sacral/buttocks wounds, GTF in place, no residual noted, infusing vital 1.2 @75 ml/hr, f/c in place, draining by gravity, patency intact, yellow clear urine, call light within to reach, s/s of bed up x3, alarm on, will continue to monitor closely.
[2022-02-16] MEDS: ENOXAPARIN SODIUM 40 MG/0.4 ML DISP.SYRIN SQ SCH (20:55)
[2022-02-16] MEDS: VITAL AF 1.2 1,000 ML BOTTLE GT SCH (22:25)
[2022-02-16] MEDS: ACETAMINOPHEN 325 MG TABLET MC PRN (22:43)
[2022-02-17] VITALS (79 sets, daily range): BP systolic 65–131; BP diastolic 39–81
[2022-02-17] MEDS: ALBUTEROL FS 2.5 MG/3 ML VIAL.NEB NEB SCH ×4 (01:45→19:36)
[2022-02-17] MEDS: IV NS 0.9% 1,000 ML IV PRN (02:47)
[2022-02-17] MEDS: NOREPINEPHRINE 8 MG in IV NS 0.9% 242 ML IV PRN (03:09)
[2022-02-17] MEDS: HYDROCORTISONE SOD SUCCINATE 100 MG/2 ML VIAL IV SCH ×3 (04:46→21:40)
[2022-02-17] MEDS: MEROPENEM 1 G in IV NS 0.9% 100 ML IV SCH ×3 (04:46→21:40)
--- NOTE | 2022-02-17 06:29 | NUR ---
RN CLOSING NOTES, patient, asleep, arouses to verbal stimuli, continue on mechanical ventilator, tolerated settings well, on 35% fio2 now, cont on levophed, titrate down to 0.02mcg/kg/min, blood pressure mantained , NS @75 ml/hr both infusing well and patient tolerated well, GTF in place, no residual noted during the night, running vital 1.2 @75 ml/hr, f/c in place, draining by gravity, clear yellow urine, patency intact with good urinary output, 2 big bowel movement last night, call light within to reach, s/s of bed up x3, alarm on, wound tx done, reposition q2h and prn, succioning provided as needed, will endorse continuity of care to oncoming nurse.
[2022-02-17 07:47] LABS: BASOPHILS # (AUTO) 0.1 K/uL (0.0-0.2); BASOPHILS % (AUTO) 0.5 % (0.0-2.0); EOSINOPHILS % (AUTO) 0.1 % (0.0-6.0); HEMATOCRIT 27 % (39-51); HEMOGLOBIN 8.5 g/dL (13.5-17.5); LYMPHOCYTES # (AUTO) 0.9 K/uL (0.8-4.8); LYMPHOCYTES % (AUTO) 9.2 % (20.0-44.0); MEAN CORPUSCULAR HGB CONC 32 g/dl (31.0-36.0); MEAN CORPUSCULAR VOLUME 79 fL (80-96); MONOCYTES # (AUTO) 0.2 K/uL (0.1-1.30); MONOCYTES % (AUTO) 2.1 % (2.0-12.0); NEUTROPHILS % (AUTO) 88.1 % (43.0-81.0); PLATELET COUNT (AUTO) 255 K/uL (150-450); RED BLOOD CELL COUNT(AUTO) 3.37 MIL/uL (4.5-6.0); WHITE BLOOD COUNT (AUTO) 10.3 K/uL (4.3-11.0)
[2022-02-17 08:16] LABS: ALBUMIN 2.5 g/dL (3.4-5.0); BILIRUBIN,TOTAL 0.2 mg/dL (0.2-1.0); CALCIUM, SERUM 8.8 mg/dL (8.5-10.1); CREATININE 0.5 mg/dL (0.6-1.3); MAGNESIUM 2.1 mg/dL (1.8-2.4); POTASSIUM 3.8 mmol/L (3.5-5.1); TOTAL PROTEIN, SERUM 6.6 g/dL (6.4-8.2)
[2022-02-17] MEDS: FERROUS SULFATE UDC 300 MG/5 ML UDC GT SCH ×2 (08:44→17:29)
[2022-02-17] MEDS: DOCUSATE SODIUM LIQ 100 MG/10 ML UDC GT SCH (08:44)
[2022-02-17] MEDS: PANTOPRAZOLE 40 MG/PACK PACK GT SCH (08:45)
[2022-02-17] MEDS: QUETIAPINE FUMARATE 25 MG TABLET GT SCH (08:45)
[2022-02-17] MEDS: MULTIVITAMINS,THERAGRAN 1 UDTAB TABLET GT SCH (08:45)
[2022-02-17] MEDS: SERTRALINE HCL 25 MG TABLET GT SCH (08:45)
[2022-02-17] MEDS: CHLORHEXIDINE GLUCONATE 15 ML UDC MM SCH ×2 (08:45→17:29)
[2022-02-17] MEDS: ZINC SULFATE 220 MG CAPSULE GT SCH (08:45)
[2022-02-17] MEDS: POTASSIUM CHLORIDE 20 MEQ POWDER PACKET GT SCH (08:45)
[2022-02-17] MEDS: DAKINS QUARTER STRENGTH (0.125%) 480 ML BOTTLE TOP SCH (08:46)
[2022-02-17] MEDS: PROSOURCE / PROSTAT (PYXIS) 30 ML UDC GT SCH (08:46)
[2022-02-17] MEDS: MIDODRINE HCL (5MG) 5 MG TABLET GT SCH ×3 (08:46→17:29)
[2022-02-17] MEDS: SULFAMETHOXAZOLE/TRIMETHOPRIM 20 ML in IV D5W 500 ML IV SCH ×3 (09:18→23:40)
[2022-02-17] MEDS: EPOETIN ALFA-EPBX 10,000 UNIT/ML VIAL SQ SCH (14:35)
--- NOTE | 2022-02-17 20:14 | NUR ---
RECEIVED PT TRACH ON VENT. NO RESP DISTRESS NOTED. PT TOLERATING VENT SETTINGS. SX'D MOD AMT OF THICK WHITE SECRETIONS. VENT ALARMS SET AND AUDIBLE. PT TRACH IS PORTEX 7. CONTINUE TO MONITOR. Addendum: 02/17/22 at 2016 by CLAUDIA KHAN RT Amended: Links added.
--- NOTE | 2022-02-17 21:20 | NUR ---
RN NOTE called briana to obtain verbal consent via telephone for CT abd and pelvis with contrast. second by jhon MONGE. consent signs and placed in chart.
[2022-02-17] MEDS: ENOXAPARIN SODIUM 40 MG/0.4 ML DISP.SYRIN SQ SCH (21:41)
[2022-02-18] VITALS (99 sets, daily range): BP systolic 67–139; BP diastolic 45–80
[2022-02-18] MEDS: ALBUTEROL FS 2.5 MG/3 ML VIAL.NEB NEB SCH ×4 (01:08→19:57)
[2022-02-18] MEDS: IV NS 0.9% 1,000 ML IV PRN ×2 (01:59→14:05)
[2022-02-18] MEDS: NOREPINEPHRINE 8 MG in IV NS 0.9% 242 ML IV PRN ×2 (01:59→11:28)
[2022-02-18] MEDS: IV NS 0.9% 250 ML IV PRN (02:16)
[2022-02-18 05:02] LABS: BASOPHILS % (AUTO) 0.1 % (0.0-2.0); HEMATOCRIT 28 % (39-51); HEMOGLOBIN 8.7 g/dL (13.5-17.5); LYMPHOCYTES % (AUTO) 9.6 % (20.0-44.0); MEAN CORPUSCULAR HGB CONC 31 g/dl (31.0-36.0); MEAN CORPUSCULAR VOLUME 81 fL (80-96); MONOCYTES # (AUTO) 0.3 K/uL (0.1-1.30); MONOCYTES % (AUTO) 3.2 % (2.0-12.0); NEUTROPHILS # (AUTO) 8.8 K/uL (1.8-8.9); NEUTROPHILS % (AUTO) 87.1 % (43.0-81.0); PLATELET COUNT (AUTO) 283 K/uL (150-450); RED BLOOD CELL COUNT(AUTO) 3.44 MIL/uL (4.5-6.0); WHITE BLOOD COUNT (AUTO) 10.2 K/uL (4.3-11.0)
[2022-02-18] MEDS: HYDROCORTISONE SOD SUCCINATE 100 MG/2 ML VIAL IV SCH ×3 (05:06→21:07)
[2022-02-18] MEDS: MEROPENEM 1 G in IV NS 0.9% 100 ML IV SCH ×3 (05:06→21:07)
[2022-02-18 05:19] LABS: CALCIUM, SERUM 8.6 mg/dL (8.5-10.1); CREATININE 0.5 mg/dL (0.6-1.3); MAGNESIUM 2.2 mg/dL (1.8-2.4); POTASSIUM 3.7 mmol/L (3.5-5.1)
--- NOTE | 2022-02-18 06:42 | NUR ---
RN CLOSING NOTE PATIENT IS A/OX2, OPENS EYES, NODS TO QUESTIONS. ON MECHANICAL VENT, P7, 16,450, 35% PEEP 5. NO RESP DISTRESS. MO C/O PAIN. 90% V PACING ON THE MONITOR. BAUMAN CATHETER DRAINING TO GRAVITY, BM X1. SACRAL WOUND CARE DONE. GT RUNNING VITAL AF@75. LEVO @0.04MCG. NS @75. PENDING CT ABD AND PELVIS WITH CONTRAST, CONSENT IN CHART.
--- NOTE | 2022-02-18 07:53 | NUR ---
Jass FRANKS Addendum: 02/18/22 at 0753 by EDWIGE MYERS RT Amended: Links added.
[2022-02-18] MEDS: SULFAMETHOXAZOLE/TRIMETHOPRIM 20 ML in IV D5W 500 ML IV SCH ×2 (08:27→15:23)
[2022-02-18] MEDS: DOCUSATE SODIUM LIQ 100 MG/10 ML UDC GT SCH (08:27)
[2022-02-18] MEDS: CHLORHEXIDINE GLUCONATE 15 ML UDC MM SCH ×2 (08:27→16:11)
[2022-02-18] MEDS: PANTOPRAZOLE 40 MG/PACK PACK GT SCH (08:27)
[2022-02-18] MEDS: FERROUS SULFATE UDC 300 MG/5 ML UDC GT SCH ×2 (08:27→16:11)
[2022-02-18] MEDS: QUETIAPINE FUMARATE 25 MG TABLET GT SCH (08:28)
[2022-02-18] MEDS: ZINC SULFATE 220 MG CAPSULE GT SCH (08:28)
[2022-02-18] MEDS: POTASSIUM CHLORIDE 20 MEQ POWDER PACKET GT SCH (08:28)
[2022-02-18] MEDS: SERTRALINE HCL 25 MG TABLET GT SCH (08:28)
[2022-02-18] MEDS: MULTIVITAMINS,THERAGRAN 1 UDTAB TABLET GT SCH (08:28)
[2022-02-18] MEDS: MIDODRINE HCL (5MG) 5 MG TABLET GT SCH ×3 (08:29→16:11)
[2022-02-18] MEDS: PROSOURCE / PROSTAT (PYXIS) 30 ML UDC GT SCH (08:30)
[2022-02-18] MEDS: DAKINS QUARTER STRENGTH (0.125%) 480 ML BOTTLE TOP SCH (08:30)
[2022-02-18] MEDS ORDERED: IOHEXOL-350 100 ML VIAL IV ONE (09:55)
--- NOTE | 2022-02-18 10:50 | NUR ---
CT OF ABDOMEN COMPLETE.
[2022-02-18] MEDS: ERYTHROMYCIN ETHYLSUCCINATE 200 MG/5 ML SUSPENSION PEG SCH ×2 (17:18→21:58)
--- NOTE | 2022-02-18 18:43 | NUR ---
RN CLOSING NOTES PT RESTING IN BED, A/O X2, NON-VERBAL BUT RESPONDS WITH HEAD NODS. ON ORDERED VENT SETTINGS. TOLERATING WELL. TELE MONITOR READS SR WITH OCCASIONAL PVC. BAUMAN CATH DRAINING. GTUBE FEEDING HELD PER MD ORDER. IV ACCESS ON TONY MIDLINE RUNNING LEVO AT 0.02 MCG/MIN AND NS AT 75ML/HR. ALL SAFETY MEASURES IN PLACE, FALL PRECAUTIONS IN PLACE. WILL ENDORSE TO SAFETY COUNSELOR NURSE FOR E[facility].
--- NOTE | 2022-02-18 20:15 | NUR ---
ICU/PHP ENGINEER TURNED OFF LEVO, FOR STABLE BLOOD PRESSURE. BLOOD PRESSURE-139/63, HEART RATE-87, RR-15. WILL CONTINUE TO MONITOR THIS PT AND HIS BP.
[2022-02-18] MEDS: ENOXAPARIN SODIUM 40 MG/0.4 ML DISP.SYRIN SQ SCH (21:07)
[2022-02-19] VITALS (96 sets, daily range): BP systolic 53–142; BP diastolic 32–82
[2022-02-19] MEDS: SULFAMETHOXAZOLE/TRIMETHOPRIM 20 ML in IV D5W 500 ML IV SCH ×3 (00:08→16:20)
[2022-02-19] MEDS: ALBUTEROL FS 2.5 MG/3 ML VIAL.NEB NEB SCH ×4 (01:28→19:35)
[2022-02-19] MEDS: VITAL AF 1.2 1,000 ML BOTTLE GT SCH (04:12)
[2022-02-19] MEDS: IV NS 0.9% 250 ML IV PRN (04:12)
[2022-02-19] MEDS: IV NS 0.9% 1,000 ML IV PRN ×2 (04:12→18:53)
[2022-02-19 04:18] LABS: BASOPHILS % (AUTO) 0.2 % (0.0-2.0); HEMATOCRIT 28 % (39-51); HEMOGLOBIN 9.1 g/dL (13.5-17.5); LYMPHOCYTES # (AUTO) 1.2 K/uL (0.8-4.8); LYMPHOCYTES % (AUTO) 21.6 % (20.0-44.0); MEAN CORPUSCULAR HGB CONC 32 g/dl (31.0-36.0); MEAN CORPUSCULAR VOLUME 79 fL (80-96); MONOCYTES % (AUTO) 6.1 % (2.0-12.0); NEUTROPHILS # (AUTO) 3.9 K/uL (1.8-8.9); NEUTROPHILS % (AUTO) 72.1 % (43.0-81.0); PLATELET COUNT (AUTO) 252 K/uL (150-450); RED BLOOD CELL COUNT(AUTO) 3.57 MIL/uL (4.5-6.0); WHITE BLOOD COUNT (AUTO) 5.4 K/uL (4.3-11.0)
[2022-02-19 04:19] LABS: MONOCYTES # (AUTO) 0.3 K/uL (0.1-1.30)
[2022-02-19] MEDS: MEROPENEM 1 G in IV NS 0.9% 100 ML IV SCH ×3 (04:37→20:32)
[2022-02-19] MEDS: HYDROCORTISONE SOD SUCCINATE 100 MG/2 ML VIAL IV SCH ×3 (04:37→20:32)
[2022-02-19 04:52] LABS: CALCIUM, SERUM 9.1 mg/dL (8.5-10.1); CREATININE 0.4 mg/dL (0.6-1.3); MAGNESIUM 2.1 mg/dL (1.8-2.4); POTASSIUM 3.5 mmol/L (3.5-5.1)
--- NOTE | 2022-02-19 05:00 | NUR ---
ICU/FUR STORAGE CLERK LEVO REMAINS OFF, WILL CONTINUE TO MONITOR THIS PT AND HIS BLOOD PRESSURE.
[2022-02-19] MEDS: ERYTHROMYCIN ETHYLSUCCINATE 200 MG/5 ML SUSPENSION PEG SCH ×3 (05:20→20:32)
[2022-02-19] MEDS: DOCUSATE SODIUM LIQ 100 MG/10 ML UDC GT SCH (05:20)
--- NOTE | 2022-02-19 07:30 | NUR ---
RN NOTES PT FOUND SEMI FOWLERS DISPLAYING NO S/S OF DISTRESS, FLACC = 0 AND BILATERAL RISE AND FALL OF THE CHEST OBSERVED. R UA ML IS PATIENT AND INTACT. BAUMAN CATH RESERVOIR IS BELOW PATIENT DRAINING BY GRAVITY. PEG DRESSING IS CLEAN AND DRY. RN WILL CONTINUE CARE PLAN AND ANTICIPATE NEEDS. SAFETY MEASURES IN PLACE, BED LOCKED AND IN LOWEST POSITION, SIDE RAILS UPX2, CALL LIGHT WITHIN REACH, BED ALARM ARMED.
[2022-02-19] MEDS: PANTOPRAZOLE 40 MG/PACK PACK GT SCH (08:39)
[2022-02-19] MEDS: MULTIVITAMINS,THERAGRAN 1 UDTAB TABLET GT SCH (08:39)
[2022-02-19] MEDS: ZINC SULFATE 220 MG CAPSULE GT SCH (08:39)
[2022-02-19] MEDS: FERROUS SULFATE UDC 300 MG/5 ML UDC GT SCH ×2 (08:39→16:20)
[2022-02-19] MEDS: CHLORHEXIDINE GLUCONATE 15 ML UDC MM SCH ×2 (08:39→16:20)
[2022-02-19] MEDS: POTASSIUM CHLORIDE 20 MEQ POWDER PACKET GT SCH (08:39)
[2022-02-19] MEDS: QUETIAPINE FUMARATE 25 MG TABLET GT SCH (08:39)
[2022-02-19] MEDS: SERTRALINE HCL 25 MG TABLET GT SCH (08:39)
[2022-02-19] MEDS: MIDODRINE HCL (5MG) 5 MG TABLET GT SCH ×3 (08:39→16:21)
[2022-02-19] MEDS: PROSOURCE / PROSTAT (PYXIS) 30 ML UDC GT SCH (08:50)
[2022-02-19] MEDS: DAKINS QUARTER STRENGTH (0.125%) 480 ML BOTTLE TOP SCH (08:52)
[2022-02-19] MEDS ORDERED: IV NS 0.9% 500 ML IV ONE (09:00)
--- NOTE | 2022-02-19 09:55 | NUR ---
CONVERTING OPERATOR VISIT JAH MEREDITH, CONVERTING OPERATOR VISITED PT. DISCUSSED W/ RN X-RAY FINDINGS, CONVERTING OPERATOR GAVE ORDERS: HOLD TF FOR 24 HOURS. RN ACKNOWLEDGED AND WILL EXECUTE ORDER.
[2022-02-19] MEDS: NOREPINEPHRINE 8 MG in IV NS 0.9% 242 ML IV PRN (12:02)
[2022-02-19] MEDS: EPOETIN ALFA-EPBX 10,000 UNIT/ML VIAL SQ SCH (15:38)
[2022-02-19] MEDS: LORAZEPAM INJ 2 MG/ML VIAL IV PRN (15:46)
--- NOTE | 2022-02-19 19:10 | NUR ---
RN NOTES PT FOUND SEMI FOWLERS DISPLAYING NO S/S OF DISTRESS, FLACC = 0 AND BILATERAL RISE AND FALL OF THE CHEST OBSERVED. R UA ML IS PATIENT AND INTACT. BAUMAN CATH RESERVOIR IS BELOW PATIENT DRAINING BY GRAVITY. PEG DRESSING IS CLEAN AND DRY. SBAR AND REPORT GIVEN TO SPRAY PILOT, ALL QUESTIONS ANSWERED. SAFETY MEASURES IN PLACE, BED LOCKED AND IN LOWEST POSITION, SIDE RAILS UPX2, CALL LIGHT WITHIN REACH, BED ALARM ARMED. PT ENDORSED IN STABLE CONDITION FOR EASTON.
[2022-02-19] MEDS: ENOXAPARIN SODIUM 40 MG/0.4 ML DISP.SYRIN SQ SCH (20:32)
[2022-02-20] VITALS (97 sets, daily range): BP systolic 70–129; BP diastolic 34–86
[2022-02-20] MEDS: SULFAMETHOXAZOLE/TRIMETHOPRIM 20 ML in IV D5W 500 ML IV SCH ×4 (00:18→23:14)
[2022-02-20] MEDS: ALBUTEROL FS 2.5 MG/3 ML VIAL.NEB NEB SCH ×4 (01:22→19:37)
[2022-02-20 04:28] LABS: BASOPHILS % (AUTO) 0.2 % (0.0-2.0); HEMATOCRIT 31 % (39-51); HEMOGLOBIN 9.8 g/dL (13.5-17.5); LYMPHOCYTES # (AUTO) 1.7 K/uL (0.8-4.8); LYMPHOCYTES % (AUTO) 20.3 % (20.0-44.0); MEAN CORPUSCULAR HGB CONC 32 g/dl (31.0-36.0); MEAN CORPUSCULAR VOLUME 79 fL (80-96); MONOCYTES # (AUTO) 0.7 K/uL (0.1-1.30); MONOCYTES % (AUTO) 8.4 % (2.0-12.0); NEUTROPHILS # (AUTO) 6.1 K/uL (1.8-8.9); NEUTROPHILS % (AUTO) 71.1 % (43.0-81.0); PLATELET COUNT (AUTO) 379 K/uL (150-450); RED BLOOD CELL COUNT(AUTO) 3.89 MIL/uL (4.5-6.0); WHITE BLOOD COUNT (AUTO) 8.6 K/uL (4.3-11.0)
[2022-02-20 04:39] LABS: ALBUMIN 2.3 g/dL (3.4-5.0); BILIRUBIN,TOTAL 0.2 mg/dL (0.2-1.0); CALCIUM, SERUM 8.7 mg/dL (8.5-10.1); CREATININE 0.4 mg/dL (0.6-1.3); MAGNESIUM 2.1 mg/dL (1.8-2.4); POTASSIUM 3.4 mmol/L (3.5-5.1); TOTAL PROTEIN, SERUM 5.9 g/dL (6.4-8.2)
[2022-02-20] MEDS: MEROPENEM 1 G in IV NS 0.9% 100 ML IV SCH ×3 (04:49→20:30)
[2022-02-20] MEDS: ERYTHROMYCIN ETHYLSUCCINATE 200 MG/5 ML SUSPENSION PEG SCH ×3 (04:49→20:30)
[2022-02-20] MEDS: HYDROCORTISONE SOD SUCCINATE 100 MG/2 ML VIAL IV SCH ×3 (04:49→20:30)
--- NOTE | 2022-02-20 07:05 | NUR ---
RN NOTES RECEIVED PT ON BED, VENT/TRACH DEPENDENT , NODS TO YES AND NO QUESTIONS, TOLERATING VENT SETTING WELL, O2 SAT WNL, ON TELE SR WITH OCCASIONAL PVC'S TF AT 75CC/HR RUNNING , NO RESIDUAL NOTED, R UPPER ARM MIDLINE SITE CDI, LEVO AT .02 MCG/KG/MIN RUNNING FOR BP SUPPORT, NS AT 75CCHR RUNNING , SR UP x3, CALL LIGHT WITHIN EASY REACH, BED LOCKED AND IN LOWEST POSITION, CONTINUE TO MONITOR .
[2022-02-20] MEDS: IV NS 0.9% 1,000 ML IV PRN ×2 (07:48→21:21)
[2022-02-20] MEDS: MULTIVITAMINS,THERAGRAN 1 UDTAB TABLET GT SCH (08:42)
[2022-02-20] MEDS: ZINC SULFATE 220 MG CAPSULE GT SCH (08:43)
[2022-02-20] MEDS: SERTRALINE HCL 25 MG TABLET GT SCH (08:43)
[2022-02-20] MEDS: MIDODRINE HCL (5MG) 5 MG TABLET GT SCH ×3 (08:43→16:37)
[2022-02-20] MEDS: PANTOPRAZOLE 40 MG/PACK PACK GT SCH (08:43)
[2022-02-20] MEDS: FERROUS SULFATE UDC 300 MG/5 ML UDC GT SCH ×2 (08:43→16:37)
[2022-02-20] MEDS: QUETIAPINE FUMARATE 25 MG TABLET GT SCH (08:43)
[2022-02-20] MEDS: POTASSIUM CHLORIDE 20 MEQ POWDER PACKET GT SCH (08:44)
[2022-02-20] MEDS: CHLORHEXIDINE GLUCONATE 15 ML UDC MM SCH ×2 (08:45→16:38)
[2022-02-20] MEDS: DOCUSATE SODIUM LIQ 100 MG/10 ML UDC GT SCH (08:45)
[2022-02-20] MEDS: PROSOURCE / PROSTAT (PYXIS) 30 ML UDC GT SCH (08:46)
[2022-02-20] MEDS: DAKINS QUARTER STRENGTH (0.125%) 480 ML BOTTLE TOP SCH (08:46)
[2022-02-20] MEDS: VITAL AF 1.2 1,000 ML BOTTLE GT SCH (09:01)
[2022-02-20] MEDS ORDERED: POTASSIUM CHLORIDE 20 MEQ POWDER PACKET NG SCH (11:00)
[2022-02-20] MEDS: NOREPINEPHRINE 8 MG in IV NS 0.9% 242 ML IV PRN ×3 (11:28→19:29)
--- NOTE | 2022-02-20 12:00 | NUR ---
RN NOTES PT TOLERATING TF WELL AT THIS TIME, LEVO RUNNING FOR BP SUPPORT , CONTINUE TO MONITOR .
--- NOTE | 2022-02-20 14:00 | NUR ---
RN NOTES SUPPORTIVE FAMILY AT THE BEDSIDE, NO DISTESS NOTED ,CONTINUE TO MONITOR .
--- NOTE | 2022-02-20 18:25 | NUR ---
RN NOTES NO SIGNIFICANT CHANGES NOTED ON THIS SHIFT, TRACH CARE AND SUCTION DONE PRN , TF AT 75CC/HR RUNNING, SR UP x3, CALL LIGHT WITHIN EASY REACH , BED LOCKED AND IN LOWEST POSITION, WILL ENDORSE TO CLINICAL ACCOUNT MANAGER NURSE FOR CONTINUITY OF CARE .
--- NOTE | 2022-02-20 19:00 | NUR ---
RN NOTE RECEIVED PATIENT IN BED, NON VERBAL, OPENS EYES, NODS HEAD, IN NO ACUTE DISTRESS AT THIS TIME. ON TRACH TO MECHANICAL VENT WITH SETTINGS PRESCRIBED: PORTEX#7, AC 16, TV 450, FIO2 35%, PEEP 0, SATURATION AT 99%, SR WITH PVC'S ON THE MONITOR, HR IS 71. TONY MIDLINE PATENT AND FLUSHING WELL, NO S/S OF INFECTION OR BLEEDING WITH NS INFUSING AT 75 ML/HR. NOTED GTUBE INTACT POSITIVE PLACEMENT NOTED, NO RESIDUAL, WITH TUBE FEEDING OF VITAL AF AT 75 ML/HR. SAFETY MEASURES IMPLEMENTED. PATIENT BED ALARM IS ON. HEAD OF BED ELEVATED. BED IS LOCKED, IN LOWEST POSITION AND SIDE RAILS UP. CALL LIGHT WITHIN REACH OF THE PATIENT. WILL CONTINUE TO MONITOR AND REASSESS FOR ANY CHANGES.
[2022-02-20] MEDS: ENOXAPARIN SODIUM 40 MG/0.4 ML DISP.SYRIN SQ SCH (20:34)
[2022-02-21] VITALS (98 sets, daily range): BP systolic 73–134; BP diastolic 35–81
[2022-02-21] MEDS: ALBUTEROL FS 2.5 MG/3 ML VIAL.NEB NEB SCH ×4 (01:08→19:58)
[2022-02-21 03:49] LABS: BASOPHILS % (AUTO) 0.2 % (0.0-2.0); EOSINOPHILS % (AUTO) 0.1 % (0.0-6.0); HEMATOCRIT 29 % (39-51); HEMOGLOBIN 9.6 g/dL (13.5-17.5); LYMPHOCYTES # (AUTO) 1.3 K/uL (0.8-4.8); LYMPHOCYTES % (AUTO) 13.2 % (20.0-44.0); MEAN CORPUSCULAR HGB CONC 33 g/dl (31.0-36.0); MEAN CORPUSCULAR VOLUME 79 fL (80-96); MONOCYTES # (AUTO) 0.7 K/uL (0.1-1.30); MONOCYTES % (AUTO) 7.3 % (2.0-12.0); NEUTROPHILS % (AUTO) 79.2 % (43.0-81.0); PLATELET COUNT (AUTO) 418 K/uL (150-450); WHITE BLOOD COUNT (AUTO) 10.1 K/uL (4.3-11.0)
[2022-02-21 04:08] LABS: CALCIUM, SERUM 8.6 mg/dL (8.5-10.1); CREATININE 0.5 mg/dL (0.6-1.3); MAGNESIUM 1.8 mg/dL (1.8-2.4); PHOSPHORUS 1.3 mg/dL (2.5-4.9); POTASSIUM 3.1 mmol/L (3.5-5.1)
[2022-02-21] MEDS: HYDROCORTISONE SOD SUCCINATE 100 MG/2 ML VIAL IV SCH ×3 (04:08→20:41)
[2022-02-21] MEDS: MEROPENEM 1 G in IV NS 0.9% 100 ML IV SCH ×3 (04:08→20:41)
[2022-02-21] MEDS: ERYTHROMYCIN ETHYLSUCCINATE 200 MG/5 ML SUSPENSION PEG SCH ×3 (04:09→20:41)
--- NOTE | 2022-02-21 08:00 | NUR ---
RN NOTES RECEIVED PATIENT AWAKE ON TRACHEA/VENT DEPENDENT. NO SOB NOTED, PATIENT HAS DISTENDED ABDOMEN, HYPOACTIVE BOWL SOUNDS FOUR QUADRANT OF ABDOMEN, PATIENT HAS GTF VITAL 1.2 @75 ML/HR,, NO RESIDUAL, DUE MEDICATION ADMINISTERED, PATIENT ON LEVOPHED 0.03MCG/KG/MIN, AND NS @75 ML/HR INTACT ON TONY MIDLINE. SUCTION, MOUTH CARE DONE. WILL FOLLOW UP.
[2022-02-21] MEDS: SULFAMETHOXAZOLE/TRIMETHOPRIM 20 ML in IV D5W 500 ML IV SCH ×2 (08:46→16:33)
[2022-02-21] MEDS: VITAL AF 1.2 1,000 ML BOTTLE GT SCH (08:52)
[2022-02-21] MEDS: POTASSIUM CHLORIDE 20 MEQ POWDER PACKET GT SCH (08:58)
[2022-02-21] MEDS: QUETIAPINE FUMARATE 25 MG TABLET GT SCH (08:58)
[2022-02-21] MEDS: CHLORHEXIDINE GLUCONATE 15 ML UDC MM SCH ×2 (08:58→16:29)
[2022-02-21] MEDS: DOCUSATE SODIUM LIQ 100 MG/10 ML UDC GT SCH (08:58)
[2022-02-21] MEDS: FERROUS SULFATE UDC 300 MG/5 ML UDC GT SCH ×2 (08:58→16:31)
[2022-02-21] MEDS: PANTOPRAZOLE 40 MG/PACK PACK GT SCH (08:58)
[2022-02-21] MEDS: SERTRALINE HCL 25 MG TABLET GT SCH (08:58)
[2022-02-21] MEDS: MULTIVITAMINS,THERAGRAN 1 UDTAB TABLET GT SCH (08:58)
[2022-02-21] MEDS: ZINC SULFATE 220 MG CAPSULE GT SCH (08:58)
[2022-02-21] MEDS: MIDODRINE HCL (5MG) 5 MG TABLET GT SCH ×3 (08:59→16:31)
[2022-02-21] MEDS: DAKINS QUARTER STRENGTH (0.125%) 480 ML BOTTLE TOP SCH (09:00)
[2022-02-21] MEDS: PROSOURCE / PROSTAT (PYXIS) 30 ML UDC GT SCH (09:01)
--- NOTE | 2022-02-21 09:31 | NUR ---
RN NOTES HELD LEVOPHED AT THIS TIME BECAUSE BP 132/64, P-89.
--- NOTE | 2022-02-21 09:51 | NUR ---
RN NOTES RESUME LEVOPHED DRIP BACK BP -75/42, P-84. ASSIST TURN AND REPOSTION, DRESSING CHANGED. SEEN PATIENT VIA HOSPITALIST. GET NEW VERBAL ORDER BECAUSE OF SEVER ILEUS DECREASE FEEDING TO THE 65 @20HR. ORDER TAKEN AND CARRIED OUT. ALSO GET KCL 40MEQ PLACEMENTORDER AT VALUE OF 3.[address] FANG.
[2022-02-21] MEDS: IV NS 0.9% 1,000 ML IV PRN (10:49)
[2022-02-21] MEDS: POTASSIUM CHLORIDE 20 MEQ POWDER PACKET NG SCH ×2 (10:52→11:12)
[2022-02-21] MEDS ORDERED: POTASSIUM CHLORIDE 20 MEQ POWDER PACKET GT SCH (11:00)
[2022-02-21] MEDS ORDERED: NEUTRA PHOS 1 POWD.PACKET NG ONE (15:30)
--- NOTE | 2022-02-21 16:00 | NUR ---
RN NOTES FAMILY NEXT TO THE BED, WILL FOLLOW UP.
--- NOTE | 2022-02-21 18:30 | NUR ---
RN NOTES PM CARE DONE, SUCTION, MOUTH CARE, DUE MEDICATION ADMINISTERED, PATIENT RESTING QUIETLY, TOLERATING FEEDING 65 ML/HR WELL, HELD LEVOPHED AGAIN AT THIS TIME BP 114/61,P-67, AND NS @75ML/HR. KEEP HOB ELEVATED FOR ASPIRATION PRECAUTION. ENDORSED ONCOMING NURSE EASTON.
[2022-02-21] MEDS: ENOXAPARIN SODIUM 40 MG/0.4 ML DISP.SYRIN SQ SCH (20:42)
[2022-02-22] VITALS (85 sets, daily range): BP systolic 70–140; BP diastolic 37–87
[2022-02-22] MEDS: SULFAMETHOXAZOLE/TRIMETHOPRIM 20 ML in IV D5W 500 ML IV SCH ×3 (00:03→16:15)
[2022-02-22] MEDS: IV NS 0.9% 1,000 ML IV PRN ×2 (02:07→14:34)
[2022-02-22] MEDS: ALBUTEROL FS 2.5 MG/3 ML VIAL.NEB NEB SCH ×4 (02:23→20:01)
[2022-02-22 04:47] LABS: BASOPHILS % (AUTO) 0.6 % (0.0-2.0); HEMATOCRIT 27 % (39-51); HEMOGLOBIN 8.7 g/dL (13.5-17.5); LYMPHOCYTES # (AUTO) 0.8 K/uL (0.8-4.8); LYMPHOCYTES % (AUTO) 16.7 % (20.0-44.0); MEAN CORPUSCULAR HGB CONC 32 g/dl (31.0-36.0); MEAN CORPUSCULAR VOLUME 79 fL (80-96); MONOCYTES # (AUTO) 0.3 K/uL (0.1-1.30); MONOCYTES % (AUTO) 6.5 % (2.0-12.0); NEUTROPHILS # (AUTO) 3.6 K/uL (1.8-8.9); NEUTROPHILS % (AUTO) 76.2 % (43.0-81.0); PLATELET COUNT (AUTO) 254 K/uL (150-450); RED BLOOD CELL COUNT(AUTO) 3.46 MIL/uL (4.5-6.0); WHITE BLOOD COUNT (AUTO) 4.7 K/uL (4.3-11.0)
[2022-02-22] MEDS: MEROPENEM 1 G in IV NS 0.9% 100 ML IV SCH ×3 (05:00→20:47)
[2022-02-22] MEDS: VITAL AF 1.2 1,000 ML BOTTLE GT SCH (05:01)
[2022-02-22] MEDS: HYDROCORTISONE SOD SUCCINATE 100 MG/2 ML VIAL IV SCH ×3 (05:10→20:47)
[2022-02-22] MEDS: ERYTHROMYCIN ETHYLSUCCINATE 200 MG/5 ML SUSPENSION PEG SCH ×3 (05:10→20:47)
[2022-02-22 05:36] LABS: ALBUMIN 2.2 g/dL (3.4-5.0); BILIRUBIN,TOTAL 0.4 mg/dL (0.2-1.0); CALCIUM, SERUM 8.5 mg/dL (8.5-10.1); CREATININE 0.4 mg/dL (0.6-1.3); PHOSPHORUS 2.5 mg/dL (2.5-4.9); POTASSIUM 3.4 mmol/L (3.5-5.1); TOTAL PROTEIN, SERUM 5.5 g/dL (6.4-8.2)
[2022-02-22] MEDS: PANTOPRAZOLE 40 MG/PACK PACK GT SCH (07:19)
--- NOTE | 2022-02-22 08:00 | NUR ---
GEOMORPHOLOGY TEACHER RECEIVED PT EASILY AROUSEABLE, INTERACTIVE. TRACH INTACT, SUCTIONED. SPO2 HIGH 90'S. TOLERATING TF, MINIMAL RESIDUALS. ABD SOFT.
[2022-02-22] MEDS: QUETIAPINE FUMARATE 25 MG TABLET GT SCH (08:21)
[2022-02-22] MEDS: ZINC SULFATE 220 MG CAPSULE GT SCH (08:21)
[2022-02-22] MEDS: MULTIVITAMINS,THERAGRAN 1 UDTAB TABLET GT SCH (08:21)
[2022-02-22] MEDS: SERTRALINE HCL 25 MG TABLET GT SCH (08:21)
[2022-02-22] MEDS: POTASSIUM CHLORIDE 20 MEQ POWDER PACKET GT SCH (08:22)
[2022-02-22] MEDS: MIDODRINE HCL (5MG) 5 MG TABLET GT SCH ×3 (08:22→16:12)
[2022-02-22] MEDS: DOCUSATE SODIUM LIQ 100 MG/10 ML UDC GT SCH (08:22)
[2022-02-22] MEDS: FERROUS SULFATE UDC 300 MG/5 ML UDC GT SCH ×2 (08:22→16:12)
[2022-02-22] MEDS: PROSOURCE / PROSTAT (PYXIS) 30 ML UDC GT SCH (08:27)
[2022-02-22] MEDS: CHLORHEXIDINE GLUCONATE 15 ML UDC MM SCH ×2 (08:29→16:12)
[2022-02-22] MEDS: DAKINS QUARTER STRENGTH (0.125%) 480 ML BOTTLE TOP SCH (08:30)
[2022-02-22] MEDS ORDERED: POTASSIUM CHLORIDE 20 MEQ POWDER PACKET GT SCH (10:00)
--- NOTE | 2022-02-22 10:00 | NUR ---
TURRET LATHE MACHINIST NOTED PT'S SPO2 76% WITH GOOD WAVEFORM. SUCTIONED COPIOUS AMOUNT WHITE SECRETIONS FROM TRACH. ORAL CARE COMPLETED.
[2022-02-22] MEDS: NOREPINEPHRINE 8 MG in IV NS 0.9% 242 ML IV PRN (11:45)
--- NOTE | 2022-02-22 12:00 | NUR ---
GENERAL HOUSE WORKER HYPOTENSIVE. LEVO DRIP STARTED.
--- NOTE | 2022-02-22 14:00 | NUR ---
BEHAVIORAL MEDICAL DIRECTOR URINE SAMPLE SENT TO LAB. BP REMAINS STABLE ON LOW DOSE LEVOPHED. HAD EPISODE LOW SATURATION. SUCTIONED SMALL AMOUNT WHITE SECRETIONS FROM TRACH. SATURATION IMPROVED TO HIGH 90'S.
[2022-02-22] MEDS: EPOETIN ALFA-EPBX 10,000 UNIT/ML VIAL SQ SCH (14:26)
[2022-02-22 15:46] LABS: BILIRUBIN,URINE NEGATIVE (NEGATIVE); COLOR,URINE YELLOW (YELLOW); LEUKOCYTE ESTERASE ,URINE SMALL (NEGATIVE); NITRITE, URINE NEGATIVE (NEGATIVE); PROTEIN,URINE NEGATIVE (NEGATIVE); UGLUCOSE NEGATIVE (NEGATIVE); UROBILINOGEN,URINE 0.2 EU/dL (0.2)
--- NOTE | 2022-02-22 16:00 | NUR ---
TOWER SWITCH OPERATOR SUCTIONED MODERATE AMOUNT THIN WHITE SECRETIONS WITH PLUGS SEEN. TOLERATED WELL. SPO2 98%
[2022-02-22 16:24] LABS: BACTERIA,URINE None seen /HPF (None Seen); SQUAMOUS EPITHELIAL CELL,UR 0-2 /HPF (None Seen); WBC,URINE 0-2 /HPF (0-3); YEAST,URINE Moderate /HPF (None Seen)
--- NOTE | 2022-02-22 18:00 | NUR ---
FARM INSTRUCTOR LEVOPHED DRIP HELD. SBP>90. FAMILY HERE. UPDATE GIVEN.
[2022-02-22] MEDS: ENOXAPARIN SODIUM 40 MG/0.4 ML DISP.SYRIN SQ SCH (20:46)
[2022-02-23] VITALS (101 sets, daily range): BP systolic 69–138; BP diastolic 32–98
[2022-02-23] MEDS: SULFAMETHOXAZOLE/TRIMETHOPRIM 20 ML in IV D5W 500 ML IV SCH ×3 (00:46→16:06)
[2022-02-23] MEDS: ALBUTEROL FS 2.5 MG/3 ML VIAL.NEB NEB SCH ×4 (02:00→19:55)
[2022-02-23 03:08] LABS: BASOPHILS % (AUTO) 0.3 % (0.0-2.0); HEMATOCRIT 30 % (39-51); HEMOGLOBIN 9.5 g/dL (13.5-17.5); LYMPHOCYTES # (AUTO) 0.9 K/uL (0.8-4.8); LYMPHOCYTES % (AUTO) 11.3 % (20.0-44.0); MEAN CORPUSCULAR HGB CONC 31 g/dl (31.0-36.0); MEAN CORPUSCULAR VOLUME 81 fL (80-96); MONOCYTES # (AUTO) 0.3 K/uL (0.1-1.30); MONOCYTES % (AUTO) 4.1 % (2.0-12.0); NEUTROPHILS # (AUTO) 6.6 K/uL (1.8-8.9); NEUTROPHILS % (AUTO) 84.3 % (43.0-81.0); PLATELET COUNT (AUTO) 313 K/uL (150-450); RED BLOOD CELL COUNT(AUTO) 3.75 MIL/uL (4.5-6.0); WHITE BLOOD COUNT (AUTO) 7.8 K/uL (4.3-11.0)
[2022-02-23 03:28] LABS: ALBUMIN 2.3 g/dL (3.4-5.0); BILIRUBIN,TOTAL 0.3 mg/dL (0.2-1.0); CALCIUM, SERUM 8.3 mg/dL (8.5-10.1); CREATININE 0.4 mg/dL (0.6-1.3); MAGNESIUM 1.8 mg/dL (1.8-2.4); POTASSIUM 3.1 mmol/L (3.5-5.1); TOTAL PROTEIN, SERUM 5.6 g/dL (6.4-8.2)
[2022-02-23] MEDS: IV NS 0.9% 1,000 ML IV PRN ×2 (04:40→17:38)
[2022-02-23] MEDS: VITAL AF 1.2 1,000 ML BOTTLE GT SCH (04:51)
[2022-02-23] MEDS: HYDROCORTISONE SOD SUCCINATE 100 MG/2 ML VIAL IV SCH ×3 (05:36→21:24)
[2022-02-23] MEDS: MEROPENEM 1 G in IV NS 0.9% 100 ML IV SCH ×3 (05:36→21:24)
[2022-02-23] MEDS: ERYTHROMYCIN ETHYLSUCCINATE 200 MG/5 ML SUSPENSION PEG SCH ×3 (05:37→21:25)
--- NOTE | 2022-02-23 07:20 | NUR ---
FACTORY LABORER OPENING NOTE: RECEIVED PT. IN BED, ALERT, NON-VERBAL, BUT ABLE TO NOD WHEN ASKED YES/NO QUESTIONS. ON LEVOPHED @ 0.01 MCG/KG/MIN. BP 110/73 AT THIS TIME. ON TRACH/VENT WITH PORTEX#7; AC MODE - 16 BPM; TV - 450; FIO2 - 35%; PEEP - 0. CHEST RISING SYMMETRICALLY. NO S/S OF RESPIRATORY DISTRESS. HUMAN RESOURCES TRAINEE READS NSR & PVC, V-PACED WITH HR OF 76 BPM AT THIS TIME. PT. ON BAUMAN CATH DRAINING CLEAR YELLOW URINE VIA GRAVITY. SKIN ISSUES NOTED. WILL DO TREATMENT ORDERED. PT. HAS G-TUBE WITH VITAL AF 1.2 RUNNING AT 65ML/HR. 3ML GASTRIC RESIDUAL NOTED. IV ACCESS ON TONY MIDLINE, PATENT WITH NS RUNNING @ 75ML/HR. IV SITE DRESSING C/D/I, WITH NO S/S OF INFILTRATION. SAFETY MEASURES IN PLACE: BED IN LOWEST & LOCKED POSITION, HOB ELEVATED AT 30 DEGREES, SIDE RAILS UP X3, WILL TURN AND REPOSITION AT LEAST Q2H. WILL CONTINUE TO MONITOR PT. FOR ANY CHANGES.
[2022-02-23] MEDS: PROSOURCE / PROSTAT (PYXIS) 30 ML UDC GT SCH (08:26)
[2022-02-23] MEDS: SERTRALINE HCL 25 MG TABLET GT SCH (08:27)
[2022-02-23] MEDS: ZINC SULFATE 220 MG CAPSULE GT SCH (08:27)
[2022-02-23] MEDS: QUETIAPINE FUMARATE 25 MG TABLET GT SCH (08:27)
[2022-02-23] MEDS: FERROUS SULFATE UDC 300 MG/5 ML UDC GT SCH ×2 (08:27→16:01)
[2022-02-23] MEDS: PANTOPRAZOLE 40 MG/PACK PACK GT SCH (08:27)
[2022-02-23] MEDS: DOCUSATE SODIUM LIQ 100 MG/10 ML UDC GT SCH (08:27)
[2022-02-23] MEDS: POTASSIUM CHLORIDE 20 MEQ POWDER PACKET GT SCH (08:27)
[2022-02-23] MEDS: CHLORHEXIDINE GLUCONATE 15 ML UDC MM SCH ×2 (08:28→16:01)
[2022-02-23] MEDS: MIDODRINE HCL (5MG) 5 MG TABLET GT SCH ×3 (08:28→16:02)
[2022-02-23] MEDS: MULTIVITAMINS,THERAGRAN 1 UDTAB TABLET GT SCH (08:28)
[2022-02-23] MEDS: DAKINS QUARTER STRENGTH (0.125%) 480 ML BOTTLE TOP SCH (09:15)
[2022-02-23] MEDS ORDERED: POTASSIUM CHLORIDE 20 MEQ POWDER PACKET GT SCH (10:00)
[2022-02-23] MEDS: NOREPINEPHRINE 8 MG in IV NS 0.9% 242 ML IV PRN (11:58)
[2022-02-23] MEDS: ACETAMINOPHEN ES 500 MG TABLET GT PRN (15:45)
--- NOTE | 2022-02-23 15:47 | NUR ---
CLERICAL ORDER FILLER NOTE: PT. COMPLAINED OF 7/10 ABDOMINAL ACHING PAIN. CONFIRMED BY ASKING YES/NO QUESTIONS AND PT. NODS OR MOVES HEAD SIDE TO SIDE. TYLENOL ES 1,000 MG GIVEN. WILL CONTINUE TO MONITOR PT.'S PAIN LEVEL.
--- NOTE | 2022-02-23 16:45 | NUR ---
CONSTRUCTION LABORER NOTE: PT.'S ACHING ABDOMINAL PAIN IS NOW 1/. PT. NON-VERBAL BUT ABLE TO ANSWER YES/NO QUESTIONS THROUGH NODDING AND MOVING HEAD SIDE TO SIDE. WILL CONTINUE TO MONITOR PT.'S PAIN.
[2022-02-23] MEDS: IV NS 0.9% 250 ML IV PRN (17:37)
--- NOTE | 2022-02-23 19:00 | NUR ---
MATERIAL HANDLER FLOORPERSON CLOSING NOTE: PT. REMAINS IN BED, ALERT, NON-VERBAL, BUT ABLE TO NOD WHEN ASKED YES/NO QUESTIONS. NO COMPLAINTS OF PAIN AT THIS TIME. OFF LEVOPHED. BP STABLE AT THIS TIME. ON TRACH/VENT WITH PORTEX#7; AC MODE - 16 BPM; TV - 450; FIO2 - 35%; PEEP - 0. CHEST RISING SYMMETRICALLY. NO S/S OF RESPIRATORY DISTRESS. PROOF PASSER READS NSR & PVC, V-PACED WITH HR OF 74 BPM AT THIS TIME. PT. ON BAUMAN CATH WITH OUTPUT OF 2,580 ML YELLOW URINE WITH SEDIMENTS THIS SHIFT. WOUND TREATMENT DONE ORDERED. PT. HAS G-TUBE WITH VITAL AF 1.2 RUNNING AT 75ML/HR. 0-3ML GASTRIC RESIDUAL NOTED THIS SHIFT. IV ACCESS ON TONY MIDLINE, PATENT WITH NS RUNNING @ 75ML/HR. IV SITE DRESSING C/D/I, WITH NO S/S OF INFILTRATION. SAFETY MEASURES MAINTAINED: BED IN LOWEST & LOCKED POSITION, HOB ELEVATED AT 30 DEGREES, SIDE RAILS UP X3, TURNED AND REPOSITION AT LEAST Q2H. WILL ENDORSE CONTINUITY OF CARE TO PURE CULTURE OPERATOR RN.
[2022-02-23] MEDS: ENOXAPARIN SODIUM 40 MG/0.4 ML DISP.SYRIN SQ SCH (21:25)
[2022-02-24] VITALS (57 sets, daily range): BP systolic 79–150; BP diastolic 38–106
[2022-02-24] MEDS: SULFAMETHOXAZOLE/TRIMETHOPRIM 20 ML in IV D5W 500 ML IV SCH ×5 (00:42→16:33)
[2022-02-24] MEDS: ALBUTEROL FS 2.5 MG/3 ML VIAL.NEB NEB SCH ×4 (01:57→19:46)
--- NOTE | 2022-02-24 03:14 | NUR ---
ICU/RN: PT FOUND WITH RIGHT UPPER MIDLINE SLIGHTLY DISLODGED. STILL FLUSHABLE WITH VISIBALE BLOOD RETURN WITHIN THE CATH. IVF RUNNING TKO OTHER FLUIDS AND PRESSORS ON HOLD. VSS.
[2022-02-24 04:37] LABS: BASOPHILS % (AUTO) 0.2 % (0.0-2.0); EOSINOPHILS % (AUTO) 0.1 % (0.0-6.0); HEMATOCRIT 31 % (39-51); HEMOGLOBIN 9.4 g/dL (13.5-17.5); LYMPHOCYTES # (AUTO) 0.6 K/uL (0.8-4.8); LYMPHOCYTES % (AUTO) 10.3 % (20.0-44.0); MEAN CORPUSCULAR HGB CONC 31 g/dl (31.0-36.0); MEAN CORPUSCULAR VOLUME 82 fL (80-96); MONOCYTES # (AUTO) 0.2 K/uL (0.1-1.30); MONOCYTES % (AUTO) 3.9 % (2.0-12.0); NEUTROPHILS % (AUTO) 85.5 % (43.0-81.0); PLATELET COUNT (AUTO) 117 K/uL (150-450); RED BLOOD CELL COUNT(AUTO) 3.78 MIL/uL (4.5-6.0); WHITE BLOOD COUNT (AUTO) 5.9 K/uL (4.3-11.0)
[2022-02-24 04:51] LABS: CALCIUM, SERUM 8.6 mg/dL (8.5-10.1); CREATININE 0.4 mg/dL (0.6-1.3); PHOSPHORUS 1.8 mg/dL (2.5-4.9); POTASSIUM 3.6 mmol/L (3.5-5.1)
[2022-02-24] MEDS: MEROPENEM 1 G in IV NS 0.9% 100 ML IV SCH ×3 (05:05→20:58)
[2022-02-24] MEDS: HYDROCORTISONE SOD SUCCINATE 100 MG/2 ML VIAL IV SCH ×3 (05:06→20:58)
[2022-02-24] MEDS: ERYTHROMYCIN ETHYLSUCCINATE 200 MG/5 ML SUSPENSION PEG SCH ×3 (05:06→20:58)
[2022-02-24] MEDS: VITAL AF 1.2 1,000 ML BOTTLE GT SCH (06:16)
[2022-02-24] MEDS: PANTOPRAZOLE 40 MG/PACK PACK GT SCH (08:06)
[2022-02-24] MEDS: SERTRALINE HCL 25 MG TABLET GT SCH (08:15)
[2022-02-24] MEDS: MULTIVITAMINS,THERAGRAN 1 UDTAB TABLET GT SCH (08:15)
[2022-02-24] MEDS: ZINC SULFATE 220 MG CAPSULE GT SCH (08:15)
[2022-02-24] MEDS: CHLORHEXIDINE GLUCONATE 15 ML UDC MM SCH ×2 (08:15→18:40)
[2022-02-24] MEDS: QUETIAPINE FUMARATE 25 MG TABLET GT SCH (08:15)
[2022-02-24] MEDS: FERROUS SULFATE UDC 300 MG/5 ML UDC GT SCH ×2 (08:16→18:39)
[2022-02-24] MEDS: POTASSIUM CHLORIDE 20 MEQ POWDER PACKET GT SCH (08:16)
[2022-02-24] MEDS: MIDODRINE HCL (5MG) 5 MG TABLET GT SCH ×3 (08:16→18:39)
[2022-02-24] MEDS: PROSOURCE / PROSTAT (PYXIS) 30 ML UDC GT SCH (08:17)
[2022-02-24] MEDS: DOCUSATE SODIUM LIQ 100 MG/10 ML UDC GT SCH (08:17)
[2022-02-24] MEDS: DAKINS QUARTER STRENGTH (0.125%) 480 ML BOTTLE TOP SCH (08:18)
[2022-02-24] MEDS: EPOETIN ALFA-EPBX 10,000 UNIT/ML VIAL SQ SCH (15:19)
[2022-02-24] MEDS: LORAZEPAM INJ 2 MG/ML VIAL IV PRN (15:26)
[2022-02-24] MEDS ORDERED: NEUTRA PHOS 1 POWD.PACKET NG ONE (15:30)
--- NOTE | 2022-02-24 18:30 | NUR ---
Cont with full vent management and support, chronic Vent to trach Cont with IV abx to treat UTI Off Pressors today; with SBP >90. Cont to adm Midodrine for BP support Good UOP noted Pacemaker on demand Cont with sacral wound treatment of tunnel wounds. Pt hx of osteomyelitis Tolerate TF well vis G tube Pt responding to simple questions Discussed possible surgical consult for diverting colostomy given difficulty with maintaining sacral decubiti clean. .
--- NOTE | 2022-02-24 19:05 | NUR ---
RN OPENING NOTES RECEIVED PATIENT ON BED AWAKE, ALERT, NON VERBAL, WITH TRACH PORTEX-7, ON MECHANICAL VENTILATION WITH SETTINGS AC-16, TIDAL VOLUME-450, FIO2-35% AND PEEP-0, TOLERATE WELL. NO SOB NOTED, AFEBRILE, NO S/S OF DISTRESS NOTED. WITH RIGHT FOOT # 22, PATENT, INTACT, FLUSHED WITH NS. NO S/S OF INFILTRATION NOTED. RUNNING WITH NS @ 75 ML/HR. PEG TUBE PATENT INTACT, VERIFIED PLACEMENT BY AUSCULTATION, NO RESIDUAL NOTED UPON ASPIRATION, WITH TUBE FEEDING VITAL AF @ 65 ML/HR. BAUMAN CATHETER PATENT INTACT DRAINING CLEAR YELLOW URINE VIA GRAVITY. ALL SAFETY PRECAUTION PROVIDED, BED IN LOWEST POSITION, LOCKED. BED ALARM ARMED. CALL LIGHT WITH IN REACH. CONTINUE TO MONITOR.
--- NOTE | 2022-02-24 20:36 | NUR ---
RECEIVED PT TRACED PORTEX 7 ON VENT. NO RESP DISTRESS NOTED. PT TOLERATING VENT SETTINGS. SX'D MODERATE AMT OF THICK WHITE SECRETIONS. VENT ALARMS SET AND AUDIBLE. CONTINUE TO MONITOR. Addendum: 02/24/22 at 2036 by CLAUDIA KHAN RT Amended: Links added.
[2022-02-24] MEDS: ENOXAPARIN SODIUM 40 MG/0.4 ML DISP.SYRIN SQ SCH (20:57)
[2022-02-24] MEDS: IV NS 0.9% 1,000 ML IV PRN (20:59)
[2022-02-25] VITALS (99 sets, daily range): BP systolic 69–169; BP diastolic 31–118
[2022-02-25] MEDS: ALBUTEROL FS 2.5 MG/3 ML VIAL.NEB NEB SCH ×4 (01:02→19:31)
[2022-02-25] MEDS ORDERED: SULFAMETHOXAZOLE/TRIMETHOPRIM 10 ML VIAL IV ONE (02:04)
[2022-02-25] MEDS: SULFAMETHOXAZOLE/TRIMETHOPRIM 20 ML in IV D5W 500 ML IV SCH (02:28)
[2022-02-25 04:59] LABS: BASOPHILS % (AUTO) 0.5 % (0.0-2.0); EOSINOPHILS % (AUTO) 0.4 % (0.0-6.0); HEMATOCRIT 27 % (39-51); HEMOGLOBIN 8.5 g/dL (13.5-17.5); LYMPHOCYTES # (AUTO) 0.6 K/uL (0.8-4.8); LYMPHOCYTES % (AUTO) 10.5 % (20.0-44.0); MEAN CORPUSCULAR HGB CONC 32 g/dl (31.0-36.0); MEAN CORPUSCULAR VOLUME 80 fL (80-96); MONOCYTES # (AUTO) 0.4 K/uL (0.1-1.30); MONOCYTES % (AUTO) 6.1 % (2.0-12.0); NEUTROPHILS % (AUTO) 82.5 % (43.0-81.0); PLATELET COUNT (AUTO) 298 K/uL (150-450); RED BLOOD CELL COUNT(AUTO) 3.34 MIL/uL (4.5-6.0); WHITE BLOOD COUNT (AUTO) 6.1 K/uL (4.3-11.0)
[2022-02-25 05:21] LABS: CALCIUM, SERUM 8.6 mg/dL (8.5-10.1); CREATININE 0.5 mg/dL (0.6-1.3); MAGNESIUM 1.7 mg/dL (1.8-2.4); PHOSPHORUS 2.1 mg/dL (2.5-4.9); POTASSIUM 3.2 mmol/L (3.5-5.1)
[2022-02-25] MEDS: ERYTHROMYCIN ETHYLSUCCINATE 200 MG/5 ML SUSPENSION PEG SCH ×3 (05:49→21:43)
[2022-02-25] MEDS: MEROPENEM 1 G in IV NS 0.9% 100 ML IV SCH (05:49)
[2022-02-25] MEDS: HYDROCORTISONE SOD SUCCINATE 100 MG/2 ML VIAL IV SCH ×3 (05:49→21:42)
--- NOTE | 2022-02-25 07:20 | NUR ---
CONCIERGE MANAGER Bedside report taken from [facility] nurse Jerald MONGE. pt asleep, easily arousable. pt tracks, follows commands, mouths words and tracks. bue contracted but moves 2/5, ble 1/5. PERRLA. pt has trach to vent, tolerating well, fio2 35%, spo2 93%. natividad lung sounds coarse and diminished. pt vpacing on monitor, bue and ble pulses present. pt has peg tube, on vital AF @ 65 ml/hr which is goal, tolerating well, 0 ml residuals. bowel sounds present, abdomen soft to touch. pt has moreno intact and draining yellow urine. multiple wounds and pressure ulcers noted, see MAR. all lines traced. all drips verified. safety measures in place. will continue to monitor.
--- NOTE | 2022-02-25 07:55 | NUR ---
COOK HELPER PRESERVES Levophed drip requested from pharmacy. awaiting delivery.
[2022-02-25] MEDS: CHLORHEXIDINE GLUCONATE 15 ML UDC MM SCH ×2 (08:10→16:38)
[2022-02-25] MEDS: FERROUS SULFATE UDC 300 MG/5 ML UDC GT SCH ×2 (08:10→16:38)
[2022-02-25] MEDS: PANTOPRAZOLE 40 MG/PACK PACK GT SCH (08:11)
[2022-02-25] MEDS: QUETIAPINE FUMARATE 25 MG TABLET GT SCH (08:11)
[2022-02-25] MEDS: MIDODRINE HCL (5MG) 5 MG TABLET GT SCH ×3 (08:11→16:38)
[2022-02-25] MEDS: POTASSIUM CHLORIDE 20 MEQ POWDER PACKET GT SCH (08:11)
[2022-02-25] MEDS: MULTIVITAMINS,THERAGRAN 1 UDTAB TABLET GT SCH (08:11)
[2022-02-25] MEDS: ZINC SULFATE 220 MG CAPSULE GT SCH (08:11)
[2022-02-25] MEDS: SERTRALINE HCL 25 MG TABLET GT SCH (08:11)
[2022-02-25] MEDS: PROSOURCE / PROSTAT (PYXIS) 30 ML UDC GT SCH (08:12)
--- NOTE | 2022-02-25 08:15 | NUR ---
JEWEL HOLE DRILLER Tube feeding and tubing changed per protocol.
[2022-02-25] MEDS: DOCUSATE SODIUM LIQ 100 MG/10 ML UDC GT SCH (08:17)
[2022-02-25] MEDS: DAKINS QUARTER STRENGTH (0.125%) 480 ML BOTTLE TOP SCH (08:18)
[2022-02-25] MEDS ORDERED: IV NS 0.9% 1,000 ML IV ONE (09:15)
--- NOTE | 2022-02-25 09:50 | NUR ---
SEWER PIPE SORTER 1L NS bolus x1 at 500 ml/hr x 2 hours started and will resume ns 75 ml/hr ivf once bolus completed per dr martel orders
[2022-02-25] MEDS ORDERED: POTASSIUM CHLORIDE 20 MEQ POWDER PACKET GT SCH (10:00)
[2022-02-25] MEDS ORDERED: NEUTRA PHOS 1 POWD.PACKET GT ONE (10:00)
[2022-02-25] MEDS: Magnesium 1GM/D5W 100ML PREMIX 100 ML IV SCH ×2 (10:04→10:56)
[2022-02-25] MEDS: NOREPINEPHRINE 8 MG in IV NS 0.9% 242 ML IV PRN (10:53)
--- NOTE | 2022-02-25 11:12 | NUR ---
SENIOR INSTRUMENTATION ENGINEER 0823- Levophed drip in room restarted d/t severe hypotension sbp 60-70s, awaiting new bag of levophed drip from pharmacy. 1015- 1L ns bolus infusing. Levophed drip off at this time. will continue to monitor. 1053- new bag of levophed scanned and restarted d/t hypotension sbp 70s. will continue to monitor.
--- NOTE | 2022-02-25 11:55 | NUR ---
COW TENDER Dr Patel at bedside assessing pt and updated on pt status. md aware that erika stark held that pt has not had bm so far this shift or noc shift, verbal order to discontinue c diff lab order entered per md. no other orders at this time.
--- NOTE | 2022-02-25 12:40 | NUR ---
VARIETY PERFORMER Pt had large liquid bm which saturated wounds and dressings. Pt bathed and cleaned. all wound care and dressing changes done per md order. skin check done with Gurjit MONGE, no new wounds noted. flexiseal inserted for liquid stool and to protect multiple open sacral and buttocks wounds. barrier cream applied. Dr Glass at bedside, made aware that flexiseal was placed, ok per md, order pending for flexiseal. charge nurse Adriane MONGE aware.
[2022-02-25] MEDS: IV NS 0.9% 1,000 ML IV PRN (16:36)
--- NOTE | 2022-02-25 19:04 | NUR ---
MACHINE PRESSER Bedside report given to [facility] nurse Jerald MONGE. pt awake, resting comfortable in bed. pt has trach to vent, tolerating well. all lines traced. all drips verified. safety measures in place. pt clean and dry. no signs of acute distress at this time.
--- NOTE | 2022-02-25 19:15 | NUR ---
RN OPENING NOTES RECEIVED PATIENT ON BED AWAKE, ALERT, NON VERBAL, WITH TRACH PORTEX-7, ON MECHANICAL VENTILATION WITH SETTINGS AC-16, TIDAL VOLUME-450, FIO2-35% AND PEEP-0, TOLERATE WELL. NO SOB NOTED, AFEBRILE, NO S/S OF DISTRESS NOTED. WITH ELENA MIDLINE AND RIGHT FOOT # 22, PATENT, INTACT, FLUSHED WITH NS. NO S/S OF INFILTRATION NOTED. RUNNING WITH NS @ 75 ML/HR. ON LEVOPHED @ 0.02 MCG/KG/MIN. PEG TUBE PATENT INTACT, VERIFIED PLACEMENT BY AUSCULTATION, NO RESIDUAL NOTED UPON ASPIRATION, WITH TUBE FEEDING VITAL AF @ 65 ML/HR. BAUMAN CATHETER PATENT INTACT DRAINING CLEAR YELLOW URINE VIA GRAVITY. FLEXISEAL PATENT INTACT. ALL SAFETY PRECAUTION PROVIDED, BED IN LOWEST POSITION, LOCKED. BED ALARM ARMED. CALL LIGHT WITH IN REACH. CONTINUE TO MONITOR.
--- NOTE | 2022-02-25 19:54 | NUR ---
RECEIVED PT TRACED PORTEX 7 ON VENT. NO RESP DISTRESS NOTED. PT TOLERATING VENT SETTINGS. SX'D MODERATE AMT OF THICK WHITE SECRETIONS. VENT ALARMS SET AND AUDIBLE. CONTINUE TO MONITOR. Addendum: 02/25/22 at 1955 by CLAUDIA KHAN RT Amended: Links added.
[2022-02-25] MEDS: ENOXAPARIN SODIUM 40 MG/0.4 ML DISP.SYRIN SQ SCH (21:47)
[2022-02-25] MEDS: VITAL AF 1.2 1,000 ML BOTTLE GT SCH (23:59)
[2022-02-26] VITALS (77 sets, daily range): BP systolic 92–154; BP diastolic 44–128
[2022-02-26] MEDS: ALBUTEROL FS 2.5 MG/3 ML VIAL.NEB NEB SCH ×4 (01:07→19:42)
[2022-02-26 04:46] LABS: BASOPHILS % (AUTO) 0.2 % (0.0-2.0); EOSINOPHILS % (AUTO) 0.1 % (0.0-6.0); HEMATOCRIT 29 % (39-51); HEMOGLOBIN 9.1 g/dL (13.5-17.5); LYMPHOCYTES # (AUTO) 0.6 K/uL (0.8-4.8); LYMPHOCYTES % (AUTO) 6.8 % (20.0-44.0); MEAN CORPUSCULAR HGB CONC 32 g/dl (31.0-36.0); MEAN CORPUSCULAR VOLUME 80 fL (80-96); MONOCYTES # (AUTO) 0.5 K/uL (0.1-1.30); MONOCYTES % (AUTO) 5.7 % (2.0-12.0); NEUTROPHILS # (AUTO) 8.1 K/uL (1.8-8.9); NEUTROPHILS % (AUTO) 87.2 % (43.0-81.0); PLATELET COUNT (AUTO) 366 K/uL (150-450); RED BLOOD CELL COUNT(AUTO) 3.61 MIL/uL (4.5-6.0); WHITE BLOOD COUNT (AUTO) 9.3 K/uL (4.3-11.0)
[2022-02-26 05:02] LABS: CALCIUM, SERUM 8.4 mg/dL (8.5-10.1); CREATININE 0.3 mg/dL (0.6-1.3); MAGNESIUM 2.3 mg/dL (1.8-2.4); PHOSPHORUS 1.6 mg/dL (2.5-4.9)
[2022-02-26] MEDS: IV NS 0.9% 1,000 ML IV PRN ×2 (05:29→18:40)
[2022-02-26 05:48] LABS: POTASSIUM 2.8 mmol/L (3.5-5.1)
[2022-02-26] MEDS: ERYTHROMYCIN ETHYLSUCCINATE 200 MG/5 ML SUSPENSION PEG SCH ×3 (05:50→20:42)
[2022-02-26] MEDS: HYDROCORTISONE SOD SUCCINATE 100 MG/2 ML VIAL IV SCH ×3 (05:50→20:42)
--- NOTE | 2022-02-26 06:00 | NUR ---
RN NOTES RECEIVED CRITICAL LAB RESULT POTASSIUM-2.9, DNP SHAWN MARQUEZ NOTIFIED WITH NEW ORDER NOTED AND CARRIED OUT.
--- NOTE | 2022-02-26 07:30 | NUR ---
ELECTRICAL APPLIANCE SERVICER OPENING NOTES: RECEIVED PT IN BED ASLEEP EASILY AROUSABLE, ALERT X 1-2 BUT NON VERBAL. NOT IN ANY PAIN OR DISTRESS, ON MECHANICAL VENT PRESCRIBED WELL TOLERATED WITHOUT ANY DISTRESS, O2 SAT 98%. GT IN PLACE WITH GTF OF VITAL AF RUNNING AT 75 ML/HR.KEPT HEAD OF BED ELEVATED. FLEXISEAL IN PLACE WITH WATERY STOOL.BAUMAN CATHETER DRAINING YELLOW URINE WITH SEDIMENTIV SALINE LOCK OF LEFT UPPER ARM RUNNING WITH NS AT 75 ML/HR AND LEVOPHED RUNNING AT 0.02 MG/KG/MIN, ALSO NOTED WITH RIGHT FOOT SALINE LOCK. BED IN LOW AND LOCKED POSITION, SIDE RAIL UP WILL MONITOR PT
[2022-02-26] MEDS: POTASSIUM CL. PREMIX PERIPHER. 50 ML IV SCH ×2 (07:31→08:31)
[2022-02-26] MEDS: PANTOPRAZOLE 40 MG/PACK PACK GT SCH (07:32)
[2022-02-26] MEDS: PROSOURCE / PROSTAT (PYXIS) 30 ML UDC GT SCH (08:59)
[2022-02-26] MEDS: ZINC SULFATE 220 MG CAPSULE GT SCH (08:59)
[2022-02-26] MEDS: POTASSIUM CHLORIDE 20 MEQ POWDER PACKET GT SCH (09:00)
[2022-02-26] MEDS: FERROUS SULFATE UDC 300 MG/5 ML UDC GT SCH ×2 (09:00→17:42)
[2022-02-26] MEDS: CHLORHEXIDINE GLUCONATE 15 ML UDC MM SCH ×2 (09:00→17:42)
[2022-02-26] MEDS: MIDODRINE HCL (5MG) 5 MG TABLET GT SCH ×3 (09:01→17:42)
[2022-02-26] MEDS: SERTRALINE HCL 25 MG TABLET GT SCH (09:01)
[2022-02-26] MEDS: QUETIAPINE FUMARATE 25 MG TABLET GT SCH (09:01)
[2022-02-26] MEDS: MULTIVITAMINS,THERAGRAN 1 UDTAB TABLET GT SCH (09:02)
[2022-02-26] MEDS: DAKINS QUARTER STRENGTH (0.125%) 480 ML BOTTLE TOP SCH (09:03)
[2022-02-26] MEDS ORDERED: NEUTRA PHOS 1 POWD.PACKET GT ONE (10:00)
[2022-02-26] MEDS ORDERED: POTASSIUM CHLORIDE 20 MEQ POWDER PACKET GT SCH (10:00)
[2022-02-26] MEDS: NOREPINEPHRINE 8 MG in IV NS 0.9% 242 ML IV PRN (12:27)
[2022-02-26] MEDS: EPOETIN ALFA-EPBX 10,000 UNIT/ML VIAL SQ SCH (14:53)
--- NOTE | 2022-02-26 15:00 | NUR ---
RN NOTES: PT REMAIN OFF LEVO SYSTOLIC BLOOD PRESSURE REMAINS ABOVE 110 WILL CONTINUE TO MONITOR
[2022-02-26] MEDS: IV NS 0.9% 250 ML IV PRN (15:52)
[2022-02-26] MEDS: VITAL AF 1.2 1,000 ML BOTTLE GT SCH (15:52)
--- NOTE | 2022-02-26 17:00 | NUR ---
RN NOTES: REMAINS WITHOUT LEVO DRIP, SBP REMAIN ABOVE 100 WILL CONTINUE TO MONITOR
--- NOTE | 2022-02-26 19:18 | NUR ---
MEDICAL RECORDS COORDINATOR CLOSING NOTES: PT IN BED ASLEEP EASILY AROUSABLE, ON MECHANICAL VENT PRESCRIBED.NO SOB NOTED, LEFT UPPER ARM MIDLINE PATENT FLUSHED WELL RUNNING NORMAL SALINE AT 75 ML/HR. WITH BAUMAN CATHETER DRAINING YELLOW URINE WITH SEDIMENT, FLEXISEAL WITH WATERY STOOL. WITH GT RUNNING VITAL AF RUNNING AT 65 ML/HR.KEPT HEAD OF BED ELEVATED,OFFLOAD BOTH HEELS . SAFETY MEASURES MAINTAINED: BED IN LOWEST & LOCKED POSITION, HOB ELEVATED AT 30 DEGREES, SIDE RAILS UP X3, TURNED AND REPOSITIONED AT LEAST Q2H. WILL ENDORSE CONTINUITY OF CARE TO STOCKBROKER RN
[2022-02-26] MEDS: ENOXAPARIN SODIUM 40 MG/0.4 ML DISP.SYRIN SQ SCH (20:43)
[2022-02-27] VITALS (25 sets, daily range): BP systolic 96–158; BP diastolic 55–99
[2022-02-27] MEDS: ALBUTEROL FS 2.5 MG/3 ML VIAL.NEB NEB SCH ×4 (01:24→20:12)
[2022-02-27 04:45] LABS: BASOPHILS % (AUTO) 0.3 % (0.0-2.0); EOSINOPHILS % (AUTO) 0.2 % (0.0-6.0); HEMATOCRIT 26 % (39-51); HEMOGLOBIN 8.2 g/dL (13.5-17.5); LYMPHOCYTES % (AUTO) 17.8 % (20.0-44.0); MEAN CORPUSCULAR HGB CONC 32 g/dl (31.0-36.0); MEAN CORPUSCULAR VOLUME 81 fL (80-96); MONOCYTES # (AUTO) 0.4 K/uL (0.1-1.30); MONOCYTES % (AUTO) 8.2 % (2.0-12.0); NEUTROPHILS % (AUTO) 73.5 % (43.0-81.0); PLATELET COUNT (AUTO) 292 K/uL (150-450); RED BLOOD CELL COUNT(AUTO) 3.19 MIL/uL (4.5-6.0); WHITE BLOOD COUNT (AUTO) 5.5 K/uL (4.3-11.0)
[2022-02-27 04:58] LABS: CALCIUM, SERUM 8.3 mg/dL (8.5-10.1); CREATININE 0.2 mg/dL (0.6-1.3); MAGNESIUM 1.9 mg/dL (1.8-2.4); PHOSPHORUS 1.6 mg/dL (2.5-4.9); POTASSIUM 2.9 mmol/L (3.5-5.1)
[2022-02-27] MEDS: ERYTHROMYCIN ETHYLSUCCINATE 200 MG/5 ML SUSPENSION PEG SCH ×3 (05:09→20:32)
[2022-02-27] MEDS: HYDROCORTISONE SOD SUCCINATE 100 MG/2 ML VIAL IV SCH ×3 (05:09→20:32)
--- NOTE | 2022-02-27 06:40 | NUR ---
RN CLOSING NOTE MAINTAINED CONTACT ISOLATION. PATIENT IS ALERT BUT NONVERBAL, NODS HEAD. MECH VENT. NO RESP DISTRESS. NO S/S PAIN NOTED. 100% V PACED ON THE MONITOR. BAUMAN CATHER TO GRAVITY, ADEQUATE URINE OUTPUT. FLEXISEAL MAINTAINED, 600ML BROWN LOOSE. SACRAL WOUND CARE DONE ORDERED. NS@75. PATIENT HAS MAINTAINED BEING OFF PRESSORS. POSSIBLE DOWN GRADE THIS AM.
[2022-02-27] MEDS: IV NS 0.9% 1,000 ML IV PRN ×2 (07:44→21:02)
[2022-02-27] MEDS: MIDODRINE HCL (5MG) 5 MG TABLET GT SCH ×3 (08:10→16:29)
[2022-02-27] MEDS: SERTRALINE HCL 25 MG TABLET GT SCH (08:10)
[2022-02-27] MEDS: ZINC SULFATE 220 MG CAPSULE GT SCH (08:11)
[2022-02-27] MEDS: CHLORHEXIDINE GLUCONATE 15 ML UDC MM SCH ×2 (08:11→16:29)
[2022-02-27] MEDS: PANTOPRAZOLE 40 MG/PACK PACK GT SCH (08:11)
[2022-02-27] MEDS: FERROUS SULFATE UDC 300 MG/5 ML UDC GT SCH ×2 (08:11→16:29)
[2022-02-27] MEDS: MULTIVITAMINS,THERAGRAN 1 UDTAB TABLET GT SCH (08:11)
[2022-02-27] MEDS: QUETIAPINE FUMARATE 25 MG TABLET GT SCH (08:11)
[2022-02-27] MEDS: POTASSIUM CHLORIDE 20 MEQ POWDER PACKET GT SCH ×4 (08:12→10:17)
[2022-02-27] MEDS: DAKINS QUARTER STRENGTH (0.125%) 480 ML BOTTLE TOP SCH (08:14)
[2022-02-27] MEDS: PROSOURCE / PROSTAT (PYXIS) 30 ML UDC GT SCH (08:14)
[2022-02-27] MEDS ORDERED: NEUTRA PHOS 1 POWD.PACKET PO ONE (09:00)
--- NOTE | 2022-02-27 18:13 | NUR ---
RN CLOSING NOTE PT IS RESTING IN BED A/O X 1-2, NON VERBAL BUT RESPONDS WITH HEAD NODS. PT IS ON ORDERED VENT SETTINGS AND TOLERATING WELL. BP HOLDING WITHOUT PRESSOR. TELE SHOWS 100% V PACED. GT FEEDING RUNNING 65ML/HR, NO RESIDUAL. IV ACCESS NOTED ON ELENA MIDLINE, AND R FOOT 22G RUNNING NS @ 75ML/HR. ALL SAFETY MEASURES IN PLACE, FALL PRECAUTIONS IN PLACE, IF HEMODYNAMICALLY STABLE, TRANSFER TOMORROW. WILL ENDORSE TO STRUCTURAL STEEL TRADES WORKER RN FOR [facility].
[2022-02-27] MEDS: VITAL AF 1.2 1,000 ML BOTTLE GT SCH (19:58)
[2022-02-27] MEDS: ENOXAPARIN SODIUM 40 MG/0.4 ML DISP.SYRIN SQ SCH (20:33)
[2022-02-28] VITALS (20 sets, daily range): BP systolic 114–184; BP diastolic 67–112
[2022-02-28] MEDS: ALBUTEROL FS 2.5 MG/3 ML VIAL.NEB NEB SCH ×4 (01:42→20:30)
[2022-02-28 04:50] LABS: BASOPHILS % (AUTO) 0.2 % (0.0-2.0); EOSINOPHILS % (AUTO) 0.2 % (0.0-6.0); HEMATOCRIT 29 % (39-51); HEMOGLOBIN 9.3 g/dL (13.5-17.5); LYMPHOCYTES # (AUTO) 0.8 K/uL (0.8-4.8); LYMPHOCYTES % (AUTO) 13.2 % (20.0-44.0); MEAN CORPUSCULAR HGB CONC 32 g/dl (31.0-36.0); MEAN CORPUSCULAR VOLUME 80 fL (80-96); MONOCYTES # (AUTO) 0.3 K/uL (0.1-1.30); MONOCYTES % (AUTO) 5.5 % (2.0-12.0); NEUTROPHILS # (AUTO) 4.8 K/uL (1.8-8.9); NEUTROPHILS % (AUTO) 80.9 % (43.0-81.0); PLATELET COUNT (AUTO) 246 K/uL (150-450); RED BLOOD CELL COUNT(AUTO) 3.62 MIL/uL (4.5-6.0); WHITE BLOOD COUNT (AUTO) 5.9 K/uL (4.3-11.0)
[2022-02-28] MEDS: HYDROCORTISONE SOD SUCCINATE 100 MG/2 ML VIAL IV SCH ×3 (05:00→20:32)
[2022-02-28] MEDS: ERYTHROMYCIN ETHYLSUCCINATE 200 MG/5 ML SUSPENSION PEG SCH ×3 (05:00→20:32)
[2022-02-28 05:06] LABS: CALCIUM, SERUM 8.6 mg/dL (8.5-10.1); CREATININE 0.3 mg/dL (0.6-1.3); MAGNESIUM 1.8 mg/dL (1.8-2.4); PHOSPHORUS 2.2 mg/dL (2.5-4.9); POTASSIUM 2.9 mmol/L (3.5-5.1)
--- NOTE | 2022-02-28 08:00 | NUR ---
RN NOTEWS RECEIVED PATIENT AWAKE TRACHEA /VENT DEPENDENT. PATIENT FOLLOW COMMAND, SUCTION, MOUTH CARE DONE. NO RESIDUAL, RUNNING VITAL 1.2 @65 ML.HR .ADMINISTERED SCHEDULED MEDICATION. VSS. REFUSED PAIN. BAUMAN DRAINING WITH SEDIMENTS AND LIGHT YELLOW COLOR. PATIENT CONTRACTED, ASSIST TURN AND REPOSTION Q 2 HR. IV ACCESS ON ELENA MIDLINE INTACT AND INFUSING NS @75 ML/HR.RECTAL TUBE INTACT WELL. WILL FOLLOW UP.
--- NOTE | 2022-02-28 08:33 | NUR ---
PEEP +[address] FRANKS Addendum: 02/28/22 at 0834 by EDWIGE MYERS RT Amended: Links added.
[2022-02-28] MEDS: VITAL AF 1.2 1,000 ML BOTTLE GT SCH (09:18)
[2022-02-28] MEDS: DAKINS QUARTER STRENGTH (0.125%) 480 ML BOTTLE TOP SCH (09:19)
[2022-02-28] MEDS: PROSOURCE / PROSTAT (PYXIS) 30 ML UDC GT SCH (09:19)
[2022-02-28] MEDS: MULTIVITAMINS,THERAGRAN 1 UDTAB TABLET GT SCH (09:20)
[2022-02-28] MEDS: ZINC SULFATE 220 MG CAPSULE GT SCH (09:25)
[2022-02-28] MEDS: FERROUS SULFATE UDC 300 MG/5 ML UDC GT SCH ×2 (09:25→16:33)
[2022-02-28] MEDS: CHLORHEXIDINE GLUCONATE 15 ML UDC MM SCH ×2 (09:25→16:33)
[2022-02-28] MEDS: MIDODRINE HCL (5MG) 5 MG TABLET GT SCH ×3 (09:26→16:33)
[2022-02-28] MEDS: QUETIAPINE FUMARATE 25 MG TABLET GT SCH (09:27)
[2022-02-28] MEDS: POTASSIUM CHLORIDE 20 MEQ POWDER PACKET GT SCH ×4 (09:27→12:11)
[2022-02-28] MEDS: SERTRALINE HCL 25 MG TABLET GT SCH (09:27)
[2022-02-28] MEDS: PANTOPRAZOLE 40 MG/PACK PACK GT SCH (09:33)
--- NOTE | 2022-02-28 10:00 | NUR ---
RN NOTES RT WITH THE PATIENT GIVING BREATHING TREATMENT. SEEN VIA Dr FRANKS, AND GET NEW ORDER DOWNGRADE TO THE TELE UNIT.
[2022-02-28] MEDS ORDERED: NEUTRA PHOS 1 POWD.PACKET GT ONE (11:00)
[2022-02-28] MEDS: IV NS 0.9% 1,000 ML IV PRN (11:21)
--- NOTE | 2022-02-28 14:30 | NUR ---
RN NOTES TRANSFERRED PATIENT TO THE TELE UNIT WITH STABLE CONDITION. TELEPHONE REPORT GIVEN TELE UNIT MARIPOSA WARREN. RN VERBALIZED UNDERSTANDING.
--- NOTE | 2022-02-28 14:32 | NUR ---
opt. transferred from 261 to 114. pt. use same mechanical ventilator, machine plugged into red outlet. kris @ bedside Addendum: 02/28/22 at 1434 by EDWIGE MYERS RT Amended: Links added.
--- NOTE | 2022-02-28 14:57 | NUR ---
RN NOTE PATIENT WAS TRANSFERRED FROM ICU WITH PRIMARY DIAGNOSIS OF SEPTIC SHOCK, PNEUMONIA AND UTI, PATIENT IS FULL CODE , URINE AND SPUTUM ISOLATION.PATIENT HAS COMORBIDITIES OF HTN, RESPIRATORY FAILURE, CHF, DYSPHAGIA, CHRONIC ENCEPHALOPSY, . PATIENT IS ON TRACH VENT , TRACH 7, AC 16 ,TV 450 , PEEP O.PATIENT HAS BAUMAN CATH IN PLACE DRAINING CLEAR YELLOW URINE ,FLEXI-SEAL. PATIENT HAS PRESSURE SORE STAGE 3 ON SACRAL AREA , DTI ON RIGHT AND LEFT BUTTOCKS . PATIENT HASIV ACSESS ON THE ELENA MIDLIME, RIGHT FOOT 20 G . BEDIS AT LOWEST POSITION , SIDE RAILS ARE UP , CALL LIGHT WITHIN REACH . WILL CONTINUE TO FALLOW POC.
--- NOTE | 2022-02-28 18:14 | NUR ---
RN CLOSING NOTE RN NOTE PATIENT IS OBTUNED , NON VERBAL ON T PICE , O2SAT 98 %, BAUMAN IN PLACE . PATIENT IS ON TRACH VENT , TRACH 7, AC 16 ,TV 450 , PEEP O 02 SAT 98 % PATIENT HAS BAUMAN CATH IN PLACE DRAINING CLEAR YELLOW URINE ,FLEXI-SEAL. PATIENT HAS PRESSURE SORE STAGE 3 ON SACRAL AREA , DTI ON RIGHT AND LEFT BUTTOCKS . PATIENT HASIV ACSESS ON THE ELENA MIDLIME, RIGHT FOOT 20 G . BED IS AT LOWEST POSITION , SIDE RAILS ARE UP , CALL LIGHT WITHIN REACH . WILL ENDORSE LIQUOR GRINDER MILL OPERATOR TO CONTINUE TO FALLOW POC.
--- NOTE | 2022-02-28 19:45 | NUR ---
RN OPENING NOTES: RECEIVED PATIENT IN BED, OBTUNDED, NON VERBAL. ON T PIECE TO VENT SETTING. TRACH 7, AC 16 ,TV 450 , PEEP 5. O2 SAT 98%. IV ACCESS ON ELENA MIDLINE AND RT FOOT #24G INTACT AND PATENT. NO S/S OF INFILTRATIONS. NO FACIAL GRIMACING NOTED. NO ACUTE DISTRESS. BAUMAN CATH IN PLACE, DRAINING CLEAR YELLOW URINE. FLEXI-SEAL IN PLACE. ALL SAFETY MEASURES IN PLACE. BED IN LOWEST POSITION AND LOCKED. SIDE RAILS ARE UP X3, PLACE CALL LIGHT WITHIN REACH . WILL CONTINUE TO MONITOR.
[2022-02-28] MEDS: ENOXAPARIN SODIUM 40 MG/0.4 ML DISP.SYRIN SQ SCH (20:32)
[2022-03-01] VITALS: BP 140/80
[2022-03-01] MEDS: ALBUTEROL FS 2.5 MG/3 ML VIAL.NEB NEB SCH ×4 (00:34→19:41)
[2022-03-01] MEDS: VITAL AF 1.2 1,000 ML BOTTLE GT SCH ×2 (03:18→23:44)
[2022-03-01 04:00] VITALS: BP 123/75
[2022-03-01] MEDS: HYDROCORTISONE SOD SUCCINATE 100 MG/2 ML VIAL IV SCH ×3 (04:42→16:31)
[2022-03-01] MEDS: ERYTHROMYCIN ETHYLSUCCINATE 200 MG/5 ML SUSPENSION PEG SCH ×3 (04:42→20:37)
--- NOTE | 2022-03-01 06:39 | NUR ---
RN CLOSING NOTES: PATIENT IN BED, OBTUNDED, NON VERBAL. ON T PIECE TO VENT SETTING. TRACH 7, AC 16 ,TV 450 , PEEP 5. O2 SAT 98%. IV ACCESS ON ELENA MIDLINE AND RT FOOT #24G INTACT AND PATENT. NO S/S OF INFILTRATIONS. NO FACIAL GRIMACING NOTED. NO ACUTE DISTRESS. GTUBE FEEDING WELL TOLERATED. RUNNING VITAL TF AT 65 CC/HR X20 HOURS. OFF AT 5AM AND START AT 9AM. ALL DUE MEDS GIVEN ORDERED. BAUMAN CATH IN PLACE, DRAINING CLEAR YELLOW URINE. FLEXI-SEAL IN PLACE. ALL SAFETY MEASURES IN PLACE. BED IN LOWEST POSITION AND LOCKED. SIDE RAILS ARE UP X3, PLACE CALL LIGHT WITHIN REACH . WILL ENDORSE TO MORNING SHIFT NURSE.
[2022-03-01 07:23] LABS: BASOPHILS % (AUTO) 0.1 % (0.0-2.0); EOSINOPHILS % (AUTO) 0.3 % (0.0-6.0); HEMATOCRIT 32 % (39-51); HEMOGLOBIN 9.9 g/dL (13.5-17.5); LYMPHOCYTES # (AUTO) 0.8 K/uL (0.8-4.8); LYMPHOCYTES % (AUTO) 9.9 % (20.0-44.0); MEAN CORPUSCULAR HGB CONC 31 g/dl (31.0-36.0); MEAN CORPUSCULAR VOLUME 81 fL (80-96); MONOCYTES # (AUTO) 0.5 K/uL (0.1-1.30); MONOCYTES % (AUTO) 5.5 % (2.0-12.0); NEUTROPHILS # (AUTO) 7.1 K/uL (1.8-8.9); NEUTROPHILS % (AUTO) 84.2 % (43.0-81.0); PLATELET COUNT (AUTO) 268 K/uL (150-450); WHITE BLOOD COUNT (AUTO) 8.4 K/uL (4.3-11.0)
--- NOTE | 2022-03-01 07:28 | NUR ---
RN OPEN NOTES: PATIENT IN BED, OBTUNDED, NON VERBAL. ON T PIECE TO VENT SETTING. TRACH 7, AC 16 ,TV 450 , PEEP 5. O2 SAT 98%. IV ACCESS ON ELENA MIDLINE AND RT FOOT #24G INTACT AND PATENT. NO S/S OF INFILTRATIONS. NO FACIAL GRIMACING NOTED. NO ACUTE DISTRESS. GTUBE FEEDING WELL TOLERATED. RUNNING VITAL TF AT 65 CC/HR X20 HOURS. OFF AT 5AM AND START AT 9AM. BAUMAN CATH IN PLACE, DRAINING CLEAR YELLOW URINE. FLEXI-SEAL IN PLACE. ALL SAFETY MEASURES IN PLACE. BED IN LOWEST POSITION AND LOCKED. SIDE RAILS ARE UP X3, PLACE CALL LIGHT WITHIN REACH . WILL CONTINUE TO FALLOW POC
[2022-03-01] MEDS: PANTOPRAZOLE 40 MG/PACK PACK GT SCH (07:36)
[2022-03-01 08:00] VITALS: BP 114/69
[2022-03-01 08:07] LABS: CALCIUM, SERUM 8.6 mg/dL (8.5-10.1); CREATININE 0.3 mg/dL (0.6-1.3); MAGNESIUM 1.8 mg/dL (1.8-2.4); PHOSPHORUS 2.6 mg/dL (2.5-4.9); POTASSIUM 3.5 mmol/L (3.5-5.1)
[2022-03-01] MEDS: CHLORHEXIDINE GLUCONATE 15 ML UDC MM SCH ×2 (08:41→16:31)
[2022-03-01] MEDS: FERROUS SULFATE UDC 300 MG/5 ML UDC GT SCH ×2 (08:42→16:31)
[2022-03-01] MEDS: ZINC SULFATE 220 MG CAPSULE GT SCH (08:42)
[2022-03-01] MEDS: SERTRALINE HCL 25 MG TABLET GT SCH (08:42)
[2022-03-01] MEDS: MIDODRINE HCL (5MG) 5 MG TABLET GT SCH ×3 (08:42→16:31)
[2022-03-01] MEDS: MULTIVITAMINS,THERAGRAN 1 UDTAB TABLET GT SCH (08:43)
[2022-03-01] MEDS: POTASSIUM CHLORIDE 20 MEQ POWDER PACKET GT SCH (08:43)
[2022-03-01] MEDS: PROSOURCE / PROSTAT (PYXIS) 30 ML UDC GT SCH (08:43)
[2022-03-01] MEDS: QUETIAPINE FUMARATE 25 MG TABLET GT SCH (08:44)
[2022-03-01] MEDS: DAKINS QUARTER STRENGTH (0.125%) 480 ML BOTTLE TOP SCH (08:54)
[2022-03-01 12:06] VITALS: BP 98/61
[2022-03-01] MEDS: EPOETIN ALFA-EPBX 10,000 UNIT/ML VIAL SQ SCH (14:41)
[2022-03-01] MEDS ORDERED: HYDROCORTISONE SOD SUCCINATE 100 MG/2 ML VIAL IV SCH (15:30)
[2022-03-01 16:00] VITALS: BP 103/60
--- NOTE | 2022-03-01 18:59 | NUR ---
RN CLOSING NOTES: PATIENT IN BED, OBTUNDED, NON VERBAL. ON T PIECE TO VENT SETTING. TRACH 7, AC 16 ,TV 450 , PEEP 5. O2 SAT 98%. IV ACCESS ON ELENA MIDLINE AND RT FOOT #24G INTACT AND PATENT. NO S/S OF INFILTRATIONS. NO FACIAL GRIMACING NOTED. NO ACUTE DISTRESS. GTUBE FEEDING WELL TOLERATED. RUNNING VITAL TF AT 65 CC/HR X20 HOURS. OFF AT 5AM AND START AT 9AM. BAUMAN CATH IN PLACE, DRAINING CLEAR YELLOW URINE. FLEXI-SEAL IN PLACE. ALL SAFETY MEASURES IN PLACE. BED IN LOWEST POSITION AND LOCKED. SIDE RAILS ARE UP X3, PLACE CALL LIGHT WITHIN REACH .
--- NOTE | 2022-03-01 19:45 | NUR ---
RN OPENING NOTES: RECEIVED PATIENT IN BED, OBTUNDED, NON VERBAL. ON T PIECE TO VENT SETTING. TRACH 7, AC 16 ,TV 450 , PEEP 5. O2 SAT 98%. IV ACCESS ON ELENA MIDLINE AND RT FOOT #24G INTACT AND PATENT. NO S/S OF INFILTRATIONS. NO FACIAL GRIMACING NOTED. NO ACUTE DISTRESS. GTUBE FEEDING WELL TOLERATED WELL. RUNNING VITAL AF @65CC/HR X20 HOURS. BAUMAN CATH IN PLACE, DRAINING CLEAR YELLOW URINE. FLEXI-SEAL IN PLACE. ALL SAFETY MEASURES IN PLACE. BED IN LOWEST POSITION AND LOCKED. SIDE RAILS ARE UP X3, PLACE CALL LIGHT WITHIN REACH . WILL CONTINUE TO MONITOR.
[2022-03-01 20:00] VITALS: BP 110/66
[2022-03-01] MEDS: ENOXAPARIN SODIUM 40 MG/0.4 ML DISP.SYRIN SQ SCH (20:37)
[2022-03-02] VITALS: BP 104/59
[2022-03-02] MEDS: ALBUTEROL FS 2.5 MG/3 ML VIAL.NEB NEB SCH ×4 (01:21→20:04)
[2022-03-02 04:00] VITALS: BP 132/66
[2022-03-02] MEDS: ERYTHROMYCIN ETHYLSUCCINATE 200 MG/5 ML SUSPENSION PEG SCH ×2 (05:30→14:47)
[2022-03-02 06:05] LABS: BASOPHILS % (AUTO) 0.3 % (0.0-2.0); HEMATOCRIT 29 % (39-51); HEMOGLOBIN 9.2 g/dL (13.5-17.5); LYMPHOCYTES # (AUTO) 1.6 K/uL (0.8-4.8); LYMPHOCYTES % (AUTO) 26.1 % (20.0-44.0); MEAN CORPUSCULAR HGB CONC 32 g/dl (31.0-36.0); MEAN CORPUSCULAR VOLUME 80 fL (80-96); MONOCYTES # (AUTO) 0.6 K/uL (0.1-1.30); MONOCYTES % (AUTO) 9.1 % (2.0-12.0); NEUTROPHILS # (AUTO) 3.9 K/uL (1.8-8.9); NEUTROPHILS % (AUTO) 62.5 % (43.0-81.0); PLATELET COUNT (AUTO) 232 K/uL (150-450); RED BLOOD CELL COUNT(AUTO) 3.62 MIL/uL (4.5-6.0); WHITE BLOOD COUNT (AUTO) 6.3 K/uL (4.3-11.0)
--- NOTE | 2022-03-02 06:12 | NUR ---
pt received on vent with charted settings, no changes throughout shift. no sob noted Addendum: 03/02/22 at 0613 by LUIS JOSEPH Amended: Links added.
--- NOTE | 2022-03-02 06:45 | NUR ---
RN CLOSING NOTES: PATIENT IN BED, OBTUNDED, NON VERBAL. ON T PIECE TO VENT SETTING. TRACH 7, AC 16 ,TV 450 , PEEP 5. O2 SAT 99%. IV ACCESS ON ELENA MIDLINE AND RT FOOT #24G INTACT AND PATENT. NO S/S OF INFILTRATIONS. NO FACIAL GRIMACING NOTED. NO ACUTE DISTRESS. GTUBE FEEDING WELL TOLERATED. RUNNING VITAL TF AT 65 CC/HR X20 HOURS. OFF AT 5AM AND START AT 9AM. ALL DUE MEDS GIVEN ORDERED. BAUMAN CATH IN PLACE, DRAINING CLEAR YELLOW URINE. FLEXI-SEAL IN PLACE, OUTPUT 50CC. ALL SAFETY MEASURES IN PLACE. BED IN LOWEST POSITION AND LOCKED. SIDE RAILS ARE UP X3, PLACE CALL LIGHT WITHIN REACH . WILL ENDORSE TO MORNING SHIFT NURSE.
--- NOTE | 2022-03-02 07:15 | NUR ---
ACTUARIAL ANALYST OPENING NOTE: RECEIVED PATIENT IN BED, OBTUNDED, NON VERBAL. ON T-PIECE TO VENT SETTING. TRACH 7, AC 16 ,TV 450, FIO2 35%, PEEP 5. O2 SAT 98%. IV ACCESS ON ELENA MIDLINE INTACT AND PATENT, SALINE LOCKED. HE ALSO HAS R FOOT #24G, PATENT AND SALINE LOCKED. NO S/S OF INFILTRATIONS. NO FACIAL GRIMACING NOTED. NO ACUTE DISTRESS. G-TUBE FEEDING WELL TOLERATED. NO GASTRIC RESIDUAL NOTED, RUNNING VITAL AF @65CC/HR X20 HOURS. BAUMAN CATH IN PLACE, DRAINING CLEAR YELLOW URINE. MULTIPLE SKIN ISSUE NOTED, WILL DO WOUND TREATMENT ORDERED. FLEXI-SEAL IN PLACE. ALL SAFETY MEASURES IN PLACE. BED IN LOWEST POSITION AND LOCKED. SIDE RAILS ARE UP X3, HOB ELEVATED AT 30 DEGREES, BED ALARM ON . WILL CONTINUE TO MONITOR PT. FOR ANY CHANGES.
[2022-03-02 07:16] LABS: CREATININE 0.3 mg/dL (0.6-1.3); MAGNESIUM 1.8 mg/dL (1.8-2.4); PHOSPHORUS 2.9 mg/dL (2.5-4.9); POTASSIUM 2.9 mmol/L (3.5-5.1)
[2022-03-02 08:00] VITALS: BP 100/67
[2022-03-02] MEDS ORDERED: POTASSIUM CHLORIDE 20 MEQ POWDER PACKET GT ONE (10:00)
[2022-03-02] MEDS: PROSOURCE / PROSTAT (PYXIS) 30 ML UDC GT SCH (11:06)
[2022-03-02] MEDS: DAKINS QUARTER STRENGTH (0.125%) 480 ML BOTTLE TOP SCH (11:06)
[2022-03-02] MEDS: FERROUS SULFATE UDC 300 MG/5 ML UDC GT SCH ×2 (11:07→17:21)
[2022-03-02] MEDS: HYDROCORTISONE SOD SUCCINATE 100 MG/2 ML VIAL IV SCH ×2 (11:07→17:21)
[2022-03-02] MEDS: CHLORHEXIDINE GLUCONATE 15 ML UDC MM SCH ×2 (11:07→17:20)
[2022-03-02] MEDS: SERTRALINE HCL 25 MG TABLET GT SCH (11:08)
[2022-03-02] MEDS: ZINC SULFATE 220 MG CAPSULE GT SCH (11:08)
[2022-03-02] MEDS: MIDODRINE HCL (5MG) 5 MG TABLET GT SCH ×3 (11:08→17:23)
[2022-03-02] MEDS: QUETIAPINE FUMARATE 25 MG TABLET GT SCH (11:08)
[2022-03-02] MEDS: PANTOPRAZOLE 40 MG/PACK PACK GT SCH (11:08)
[2022-03-02] MEDS: MULTIVITAMINS,THERAGRAN 1 UDTAB TABLET GT SCH (11:08)
[2022-03-02] MEDS: POTASSIUM CHLORIDE 20 MEQ POWDER PACKET GT SCH (11:09)
[2022-03-02 12:00] VITALS: BP 102/62
[2022-03-02] MEDS ORDERED: EPOE1000 SQ (12:05)
[2022-03-02] MEDS ORDERED: ALBUT2 NEB (12:05)
[2022-03-02] MEDS ORDERED: NUT.237L65 GT (12:05)
[2022-03-02] MEDS ORDERED: PANT40SU2 GT (12:05)
[2022-03-02] MEDS ORDERED: Erythromycin Ethylsuccinate PEG (12:05)
[2022-03-02] MEDS ORDERED: SIME80TA72 PO (12:05)
--- NOTE | 2022-03-02 13:30 | NUR ---
PRINT COLOR OPERATOR NOTE: PT. WILL BE PICKED UP BY AMBULANCE AT AROUND 1500 PER CM. REPORT GIVEN TO S[facility]MA [facility]GE OF [facility] OVER THE PHONE.
[2022-03-02 16:00] VITALS: BP 125/58
[2022-03-02 17:23] VITALS: BP 97/58
--- NOTE | 2022-03-02 19:15 | NUR ---
FRAME STRIPPER CLOSING NOTE: PATIENT REMAINS IN BED, OBTUNDED, NON VERBAL. ON T-PIECE TO VENT SETTING. TRACH 7, AC 16 ,TV 450, FIO2 35%, PEEP 5. O2 SAT 98%. KICK BOXER READS NSR WITH OCCASIONAL V-PACING AT 85 BPM. IV ACCESS ON ELENA MIDLINE INTACT AND PATENT, SALINE LOCKED. NO S/S OF INFILTRATION. NO S/S OF PAIN AND DISTRESS AT THIS TIME. G-TUBE FEEDING WELL TOLERATED, VITAL AF STILL RUNNING @65CC/HR X20 HOURS. BAUMAN CATH IN PLACE, DRAINING CLEAR YELLOW URINE. MULTIPLE SKIN ISSUE NOTED, WOUND TREATMENT DONE ORDERED. PT. WAITING FOR PICKUP TO TRANSFER TO [facility]. REPORT GIVEN TO SELMA MONGE OVER THE PHONE. WILL KEEP ELENA MIDLINE, BAUMAN CATH, AND FLEXI-SEAL PER FACILITY'S REQUEST. ALL SAFETY MEASURES MAINTAINED. BED IN LOWEST POSITION AND LOCKED. SIDE RAILS ARE UP X3, HOB ELEVATED AT 30 DEGREES, BED ALARM ON . WILL ENDORSE CONTINUITY OF CARE TO HEEL SLICKER RN.
--- NOTE | 2022-03-02 19:40 | NUR ---
RN OPENING NOTES: RECEIVED PATIENT IN BED, OBTUNDED, NON VERBAL. ON T-PIECE TO VENT SETTING. TRACH 7, AC 16 ,TV 450 , PEEP 5. O2 SAT 98%. IV ACCESS ON ELENA MIDLINE INTACT AND PATENT. NO S/S OF INFILTRATIONS. NO FACIAL GRIMACING NOTED. NO ACUTE DISTRESS. GTUBE FEEDING WELL TOLERATED WELL. RUNNING VITAL AF @65CC/HR X20 HOURS. BAUMAN CATH IN PLACE, DRAINING CLEAR YELLOW URINE. FLEXI-SEAL IN PLACE. ALL SAFETY MEASURES IN PLACE. BED IN LOWEST POSITION AND LOCKED. SIDE RAILS ARE UP X3, PLACE CALL LIGHT WITHIN REACH . WILL CONTINUE TO MONITOR.
--- NOTE | 2022-03-02 20:15 | NUR ---
WOODWORKING BELT SANDER NOTES: PT WAS PICKED UP BY [facility] IN STABLE CONDITION. REMOVED CARDIAC MONITORING. KEPT MIDLINE, FLEXI-SEAL AND BAUMAN CATHETER PER REQUEST. KEPT CLEAN, DRY AND COMFORTABLE. V/S STABLE. V/S- 98.2 F, 89, 20, 99%, 130/77. NO C/O PAIN OR DISCOMFORT. NO DISTRESS NOTED. REPORT ALREADY GIVEN TO [facility] RN DURING PREVIOUS SHIFT.
== END 2022-03-02 20:15 | DRG 710 ==
LOC: ER 16:32 → ICU 20:19 → TELE1 02-28 14:22 → TELE-TD 02-28 14:41 → TELE1 02-28 14:46
PROVIDERS: ADMIT Nurse Practitioner Acute Care; ATTEND Nurse Practitioner Acute Care
PROC: 5A1955Z Respiratory Ventilation, Greater than 96 Consecutive Hours (ICD-10-PCS; principal; 2022-02-09)
PROC: 05H533Z Insertion of Infusion Device into Right Subclavian Vein, Percutaneous Approach (ICD-10-PCS; 2022-02-09)
PROC: B546ZZA Ultrasonography of Right Subclavian Vein, Guidance (ICD-10-PCS; 2022-02-09)
PROC: 0KBN0ZZ Excision of Right Hip Muscle, Open Approach (ICD-10-PCS; 2022-02-16)
PROC: 0KBP0ZZ Excision of Left Hip Muscle, Open Approach (ICD-10-PCS; 2022-02-16)
PROC: 05H633Z Insertion of Infusion Device into Left Subclavian Vein, Percutaneous Approach (ICD-10-PCS; 2022-02-24)
PROC: B547ZZA Ultrasonography of Left Subclavian Vein, Guidance (ICD-10-PCS; 2022-02-24)
DX: A41.9 Sepsis, unspecified organism (principal); N17.0 Acute kidney failure with tubular necrosis; J96.21 Acute and chronic respiratory failure with hypoxia; R65.21 Severe sepsis with septic shock; J95.851 Ventilator associated pneumonia; G93.41 Metabolic encephalopathy; L89.154 Pressure ulcer of sacral region, stage 4; J15.6 Pneumonia due to other Gram-negative bacteria; L89.324 Pressure ulcer of left buttock, stage 4; L89.314 Pressure ulcer of right buttock, stage 4; L89.626 Pressure-induced deep tissue damage of left heel; T83.518A Infection and inflammatory reaction due to other urinary catheter, initial encounter; L89.616 Pressure-induced deep tissue damage of right heel; I11.0 Hypertensive heart disease with heart failure; I50.32 Chronic diastolic (congestive) heart failure; R53.2 Functional quadriplegia; K56.7 Ileus, unspecified; Z99.11 Dependence on respirator [ventilator] status; Z93.0 Tracheostomy status; E87.4 Mixed disorder of acid-base balance; D63.8 Anemia in other chronic diseases classified elsewhere; E27.40 Unspecified adrenocortical insufficiency; N39.0 Urinary tract infection, site not specified; B96.20 Unspecified Escherichia coli [E. coli] as the cause of diseases classified elsewhere; E86.1 Hypovolemia; E87.6 Hypokalemia; F03.90 Unspecified dementia, unspecified severity, without behavioral disturbance, psychotic disturbance, mood disturbance, and anxiety; R13.10 Dysphagia, unspecified; Z16.12 Extended spectrum beta lactamase (ESBL) resistance; Z87.440 Personal history of urinary (tract) infections; Z93.1 Gastrostomy status; Z95.0 Presence of cardiac pacemaker; E87.1 Hypo-osmolality and hyponatremia; E87.2 Acidosis; N40.1 Benign prostatic hyperplasia with lower urinary tract symptoms; K21.9 Gastro-esophageal reflux disease without esophagitis; E83.9 Disorder of mineral metabolism, unspecified; J98.11 Atelectasis; D50.9 Iron deficiency anemia, unspecified; Y84.6 Urinary catheterization as the cause of abnormal reaction of the patient, or of later complication, without mention of misadventure at the time of the procedure; Y92.129 Unspecified place in nursing home as the place of occurrence of the external cause; Z16.24 Resistance to multiple antibiotics; Z86.19 Personal history of other infectious and parasitic diseases; M89.9 Disorder of bone, unspecified; Y83.3 Surgical operation with formation of external stoma as the cause of abnormal reaction of the patient, or of later complication, without mention of misadventure at the time of the procedure; Y72.8 Miscellaneous otorhinolaryngological devices associated with adverse incidents, not elsewhere classified
CPT/HCPCS: 31720; 36410; 36415; 36600; 70450-TC; 71045-TC; 74018; 80048-TC; 80053-TC; 80076-TC; 80202-TC; 81001; 82533; 82803-TC; 83605-TC; 83690-TC; 83735-TC; 84100-TC; 84484-TC; 85025-TC; 85730-TC; 87040-TC; 87070-TC; 87081-TC; 87086-TC; 87186-TC; 94002-TC; 94003-TC; 94760-TC; 94762-TC; 94799-TC; 99082-TC; A4623; A6253; A6403; A7526; C9113; C9803; G0378; J0456; J0885; J1650; J1720; J2060; J2185; J2543; J3370; J3475; J3480; J3490; J7030; J7040; J7050; J7060; J7120; Q9967